=== PATIENT | female | born 1945 | race Caucasian/White ===

== ENCOUNTER → 2017-03-20 | Outpatient (CLI) | payer MEDICARE, OTHER | END | disposition home or self-care (01) | LOC: LABWHC1 14:55 | PROVIDERS: ATTEND Internal Medicine Cardiovascular Disease | DX: R06.02 Shortness of breath (principal) | CPT/HCPCS: 36415; 83880; 85379 ==

== ENCOUNTER → 2017-05-01 | Outpatient (CLI) | payer MEDICARE, OTHER ==
[2017-05-01 14:01] LABS: Rheumatoid Factor, Qnt <9 IU/mL (<12)
[2017-05-01 19:21] LABS: ANA w/Reflex to Titer NEGATIVE (NEGATIVE); Cyclic Citrull Pep IgG Unit <0.5 U/mL; Cyclic Citrullinated Pep IgG NEGATIVE (NEGATIVE); Scleroderma SC-70 Ab Interp NEGATIVE (NEGATIVE)
== END | disposition home or self-care (01) ==
LOC: LABWHC1 12:55
PROVIDERS: ATTEND Internal Medicine Pulmonary Disease
DX: E03.9 Hypothyroidism, unspecified (principal); I27.2 Other secondary pulmonary hypertension
CPT/HCPCS: 36415; 84443; 86038; 86200; 86225; 86235; 86431

== ENCOUNTER 2017-05-21 21:10 | Emergency (ER) | payer MEDICARE, OTHER ==
[2017-05-21] MEDS ORDERED: MORPHINE SULFATE 2 MG/ML SYRINGE IVP STA (21:25)
[2017-05-21] MEDS ORDERED: ASPIRIN 81 MG PO STA (21:25)
[2017-05-21] MEDS ORDERED: NITROGLYCERIN OINT 1 INCH/GM PACKET TOPICAL STA (21:25)
--- NOTE | 2017-05-21 21:46 | ED ---
General Adult HPI - General Chief complaint: Chest Pain Stated complaint: Chest/Back Pain Time Seen by Provider: 05/21/17 21:10 Source: patient, RN notes reviewed Mode of arrival: wheelchair Limitations: no limitations - History of Present Illness Initial comments: 72-year-old female who presents emergency Department complaining of pain between her shoulder blades. Patient states started 3 days ago. Patient states pain is never gone away. But it does get worse with deep breathing and with movement. Patient denies any anterior chest pain. Patient denies any shortness of breath is worse than normal. Patient denies any recent fever chills or cough. Patient denies any palpitations. Patient denies any abdominal pain patient denies nausea vomiting diarrhea. Patient denies headache patient denies numbness weakness. - Related Data Home Medications Medication Instructions Recorded Confirmed Albuterol Nebulized [Ventolin 2.5 mg INHALATION RT-QID PRN 05/21/17 05/21/17 Nebulized] Allopurinol [Zyloprim] 150 mg PO DAILY 05/21/17 05/21/17 Aspirin EC [Ecotrin Low Dose] 81 mg PO BID 05/21/17 05/21/17 Bisacodyl [Dulcolax] 5 mg PO DAILY 05/21/17 05/21/17 Calcitriol [Rocaltrol] 0.25 mcg PO BARRON 05/21/17 05/21/17 Calcium/Magnesium/Zinc 1 tab PO DAILY 05/21/17 05/21/17 [Atbzfhe-Pwaibcqzi-Cffu Tablet] Cholecalciferol [Vitamin D3] 1,000 unit PO BID 05/21/17 05/21/17 Furosemide [Lasix] 40 mg PO BID 05/21/17 05/21/17 Glucosam/Cheng-Msm1/C/Flaquito/Bosw 1 tab PO DAILY 05/21/17 05/21/17 [Glucosamine-Chondroitin Tablet] Insulin Aspart [NovoLOG] 9 unit SQ AC-TID 05/21/17 05/21/17 Insulin Glargine [Lantus] 50 unit SQ HS 05/21/17 05/21/17 Levothyroxine Sodium [Synthroid] 25 mcg PO QAM 05/21/17 05/21/17 Lisinopril [Zestril] 10 mg PO HS 05/21/17 05/21/17 Multivitamins, Thera [Multivitamin 1 tab PO DAILY 05/21/17 05/21/17 (formulary)] [place]-3 Fatty Acids/Fish Oil [Fish 1 cap PO BID 05/21/17 05/21/17 Oil 1,000 mg Softgel] Simvastatin [Zocor] 40 mg PO HS 05/21/17 05/21/17 Previous Rx's Medication Instructions Recorded Cyclobenzaprine [Flexeril] 10 mg PO TID #20 tab 05/21/17 Ibuprofen [Motrin] 400 mg PO Q6HR PRN #16 tab 05/21/17 Allergies Allergy/AdvReac Type Severity Reaction Status Date / Time No Known Allergies Allergy Verified 05/21/17 21:43 Review of Systems ROS Statement: Those systems with pertinent positive or pertinent negative responses have been documented in the HPI. ROS Other: All systems not noted in ROS Statement are negative. Past Medical History Past Medical History: Heart Failure, Diabetes Mellitus, Hyperlipidemia, Hypertension, Respiratory Disorder History of Any Multi-Drug Resistant Organisms: None Reported Past Surgical History: Section Past Psychological History: No Psychological Hx Reported Smoking Status: Former smoker Past Alcohol Use History: None Reported Past Drug Use History: None Reported General Exam - General Exam Comments Initial Comments: GENERAL: Patient is well-developed and well-nourished. Patient is nontoxic and well- hydrated and is in mild distress. ENT: Neck is soft and supple. No significant lymphadenopathy is noted. Oropharynx is clear. Moist mucous membranes. Neck has full range of motion without eliciting any pain. EYES: The sclera were anicteric and conjunctiva were pink and moist. Extraocular movements were intact and pupils were equal round and reactive to light. Eyelids were unremarkable. PULMONARY: Unlabored respirations. Good breath sounds bilaterally. No audible rales rhonchi or wheezing was noted. CARDIOVASCULAR: There is a regular rate and rhythm without any murmurs gallops or rubs. ABDOMEN: Soft and nontender with normal bowel sounds. No palpable organomegaly was noted. There is no palpable pulsatile mass. SKIN: Skin is clear with no lesions or rashes and otherwise unremarkable. NEUROLOGIC: Patient is alert and oriented x3. Cranial nerves II through XII are grossly intact. Motor and sensory are also intact. Normal speech, volume and content. Symmetrical smile. MUSCULOSKELETAL: Normal extremities with adequate strength and full range of motion. Patient had tenderness to the back on palpation. LYMPHATICS: No significant lymphadenopathy is noted PSYCHIATRIC: Normal psychiatric evaluation. Normal interpersonal interactions appears functionally intact in deals appropriately with others. No signs of depression. No signs of anxiety. Limitations: no limitations Course Vital Signs 05/21/17 05/21/17 05/21/17 21:14 21:47 22:37 Temperature 98.6 F 98.4 F Pulse Rate 87 74 64 Respiratory 18 20 16 Rate Blood Pressure 148/69 157/77 159/78 O2 Sat by Pulse 90 L 98 94 L Oximetry 05/21/17 23:35 Temperature 97.7 F Pulse Rate 70 Respiratory 18 Rate Blood Pressure 162/76 O2 Sat by Pulse 95 Oximetry Medical Decision Making - Medical Decision Making EKG shows normal sinus rhythm at 82 bpm VA interval 224 QRS is 90 QT interval 376 QTC is 439. Patient's EKG shows no ST segment elevation or depression or T wave abnormalities are noted. Chest x-ray shows no acute abnormality. Patient got great relief with the Toradol and states it's only there now she takes an extremely large breath or twists fully - Lab Data Result diagrams: 05/21/17 21:35 05/21/17 21:35 Lab Results 05/21/17 05/21/17 05/21/17 Range/Units 21:35 21:35 21:35 WBC 11.9 H (3.8-10.6) k/uL RBC 4.43 (3.80-5.40) m/uL Hgb 13.3 (11.4-16.0) gm/dL Hct 40.9 (34.0-46.0) % MCV 92.3 (80.0-100.0) fL MCH 30.0 (25.0-35.0) pg MCHC 32.5 (31.0-37.0) g/dL RDW 14.1 (11.5-15.5) % Plt Count 271 (150-450) k/uL Neutrophils % 71 % Lymphocytes % 19 % Monocytes % 5 % Eosinophils % 3 % Basophils % 1 % Neutrophils # 8.4 H (1.3-7.7) k/uL Lymphocytes # 2.3 (1.0-4.8) k/uL Monocytes # 0.6 (0-1.0) k/uL Eosinophils # 0.3 (0-0.7) k/uL Basophils # 0.1 (0-0.2) k/uL PT (9.0-12.0) sec INR (<1.2) APTT (22.0-30.0) sec D-Dimer (<0.60) mg/L FEU Sodium 140 (137-145) mmol/L Potassium 4.8 (3.5-5.1) mmol/L Chloride 100 (98-107) mmol/L Carbon Dioxide 29 (22-30) mmol/L Anion Gap 11 mmol/L BUN 51 H (7-17) mg/dL Creatinine 1.74 H (0.52-1.04) mg/dL Est GFR (MDRD) Af Amer 35 (>60 ml/min/1.73 sqM) Est GFR (MDRD) Non-Af 29 (>60 ml/min/1.73 sqM) Glucose 193 H (74-99) mg/dL Calcium 9.7 (8.4-10.2) mg/dL Magnesium 2.2 (1.6-2.3) mg/dL Total Bilirubin 0.4 (0.2-1.3) mg/dL AST 21 (14-36) U/L ALT 25 (9-52) U/L Alkaline Phosphatase 85 (38-126) U/L Total Creatine Kinase 91 (30-135) U/L CK-MB (CK-2) 0.8 (0.0-2.4) ng/mL CK-MB (CK-2) Rel Index 0.9 Troponin I <0.012 (0.000-0.034) ng/mL NT-Pro-B Natriuret Pep pg/mL Total Protein 7.3 (6.3-8.2) g/dL Albumin 4.2 (3.5-5.0) g/dL 05/21/17 05/21/17 05/21/17 Range/Units 21:35 21:35 21:35 WBC (3.8-10.6) k/uL RBC (3.80-5.40) m/uL Hgb (11.4-16.0) gm/dL Hct (34.0-46.0) % MCV (80.0-100.0) fL MCH (25.0-35.0) pg MCHC (31.0-37.0) g/dL RDW (11.5-15.5) % Plt Count (150-450) k/uL Neutrophils % % Lymphocytes % % Monocytes % % Eosinophils % % Basophils % % Neutrophils # (1.3-7.7) k/uL Lymphocytes # (1.0-4.8) k/uL Monocytes # (0-1.0) k/uL Eosinophils # (0-0.7) k/uL Basophils # (0-0.2) k/uL PT 9.9 (9.0-12.0) sec INR 1.0 (<1.2) APTT 23.2 (22.0-30.0) sec D-Dimer 0.54 (<0.60) mg/L FEU Sodium (137-145) mmol/L Potassium (3.5-5.1) mmol/L Chloride (98-107) mmol/L Carbon Dioxide (22-30) mmol/L Anion Gap mmol/L BUN (7-17) mg/dL Creatinine (0.52-1.04) mg/dL Est GFR (MDRD) Af Amer (>60 ml/min/1.73 sqM) Est GFR (MDRD) Non-Af (>60 ml/min/1.73 sqM) Glucose (74-99) mg/dL Calcium (8.4-10.2) mg/dL Magnesium (1.6-2.3) mg/dL Total Bilirubin (0.2-1.3) mg/dL AST (14-36) U/L ALT (9-52) U/L Alkaline Phosphatase (38-126) U/L Total Creatine Kinase (30-135) U/L CK-MB (CK-2) (0.0-2.4) ng/mL CK-MB (CK-2) Rel Index Troponin I (0.000-0.034) ng/mL NT-Pro-B Natriuret Pep 130 pg/mL Total Protein (6.3-8.2) g/dL Albumin (3.5-5.0) g/dL Disposition Clinical Impression: Thoracic back pain Disposition: HOME SELF-CARE Condition: Good Instructions: Thoracic Back Strain (ED) Prescriptions: Cyclobenzaprine [Flexeril] 10 mg PO TID #20 tab Ibuprofen [Motrin] 400 mg PO Q6HR PRN #16 tab PRN Reason: Pain Referrals: Oroin Benjamin MD [Primary Care Provider] - 1-2 days Time of Disposition: 23:43
[2017-05-21 21:51] LABS: Basophils # (A) 0.1 k/uL (0-0.2); Basophils % (A) 1 %; CH 29.8; CHCM 32.4; Eosinophils # (A) 0.3 k/uL (0-0.7); Eosinophils % (A) 3 %; HCT 40.9 % (34.0-46.0); HDW 2.51; HGB 13.3 gm/dL (11.4-16.0); Luc # (Auto) 0.17; Luc % (Auto) 2; Lymphocytes # (A) 2.3 k/uL (1.0-4.8); Lymphocytes % (A) 19 %; MCHC 32.5 g/dL (31.0-37.0); MCV 92.3 fL (80.0-100.0); Mean Platelet Volume 7.7; Monocytes # (A) 0.6 k/uL (0-1.0); Monocytes % (A) 5 %; Neutrophils # (A) 8.4 k/uL (1.3-7.7); Neutrophils % (A) 71 %; RBC 4.43 m/uL (3.80-5.40); RDW 14.1 % (11.5-15.5); WBC 11.9 k/uL (3.8-10.6); WBC (Perox) 11.43
[2017-05-21 21:57] LABS: Partial Thromboplastin Time 23.2 sec (22.0-30.0); Prothrombin Time 9.9 sec (9.0-12.0)
[2017-05-21 21:59] LABS: Calcium 9.7 mg/dL (8.4-10.2); Magnesium 2.2 mg/dL (1.6-2.3); Potassium 4.8 mmol/L (3.5-5.1); Total Bilirubin 0.4 mg/dL (0.2-1.3); Total Protein 7.3 g/dL (6.3-8.2)
--- NOTE | 2017-05-21 22:14 | XR ---
EXAMINATION TYPE: XR chest 2V DATE OF EXAM: 05/21/2017 COMPARISON: EXAMINATION TYPE: XR chest 2V DATE OF EXAM: 05/21/2017 COMPARISON: NONE HISTORY: Chest pain TECHNIQUE: 2 views FINDINGS: Heart is enlarged. There is no gross heart failure. Exam is limited by the obesity. I see n o definite pleural effusion. There are chest leads. Bony thorax is intact. IMPRESSION: Cardiomegaly. No gross heart failure seen.
[2017-05-21 22:15] LABS: Creatine Kinase 91 U/L (30-135)
[2017-05-21 22:28] LABS: Creatine Kinase MB 0.8 ng/mL (0.0-2.4); Troponin I <0.012 ng/mL (0.000-0.034)
[2017-05-21] MEDS ORDERED: KETOROLAC 60 MG/2 ML VIAL IVP STA (22:57)
[2017-05-21 23:37] VITALS: BP 162/76; PULSE 70; RESP 18; TEMP 97.7
[2017-05-21] MEDS ORDERED: CYCLOBENZAPRINE 10 MG TAB PO STA (23:46)
== END 2017-05-22 00:08 | disposition home or self-care (01) ==
LOC: EC 21:10
DX: M54.6 Pain in thoracic spine (principal); R07.9 Chest pain, unspecified; I11.0 Hypertensive heart disease with heart failure; I50.9 Heart failure, unspecified; E11.9 Type 2 diabetes mellitus without complications; E78.5 Hyperlipidemia, unspecified; Z87.891 Personal history of nicotine dependence; Z79.82 Long term (current) use of aspirin; Z79.4 Long term (current) use of insulin; Z79.899 Other long term (current) drug therapy
CPT/HCPCS: 36415; 93005; 85379; 83880; 80053; 82550; 82553; 83735; 84484; 85025; 85610; 85730; 71020; 99285; 96374; 96375; J1885; J2270

== ENCOUNTER → 2021-02-09 | Outpatient (CLI) | payer MEDICARE, OTHER ==
[2021-02-09 14:35] LABS: HCT 43.2 % (37.2-46.3); HGB 13.4 g/dL (12.0-15.0); MCV 96.6 fL (80.0-97.0); Mean Platelet Volume 11.4 fL (9.5-12.2); Platelet Count 270 X 10*3/uL (140-440); RBC 4.47 X 10*6/uL (4.10-5.20); RDW 13.2 % (11.5-14.5); WBC 8.93 X 10*3/uL (4.50-10.00)
[2021-02-10 07:36] LABS: African American GFR (CKD) 35.7 (60.0-200.0); Anion Gap 16.3 mmol/L (4.00-12.00); BUN/Creat Ratio 25.63 Ratio (12.00-20.00); Calcium 9.7 mg/dL (8.7-10.3); Carbon Dioxide 24.7 mmol/L (21.6-31.8); Non-African American GFR(CKD) 30.8 (60.0-200.0); Potassium 4.2 mmol/L (3.5-5.5)
== END | disposition home or self-care (01) ==
LOC: LABWHC1 10:13
PROVIDERS: ATTEND Internal Medicine Cardiovascular Disease
DX: I48.91 Unspecified atrial fibrillation (principal)
CPT/HCPCS: 36415; 80048; 84443; 85027

== ENCOUNTER 2021-09-27 10:02 | Inpatient (IN) | payer MEDICARE, OTHER ==
[2021-09-27] MEDS ORDERED: PIPERACILLIN-TAZOBACTAM 3.375 GM in SODIUM CHLORIDE 0.9% 100 ML IVPB STA (10:23)
[2021-09-27] MEDS ORDERED: VANCOMYCIN IV PER PHARMACY 1 EACH MISC MISCELLANE PRN (10:24)
[2021-09-27] MEDS ORDERED: ACETAMINOPHEN TAB 325 MG TAB PO PRN (10:27)
[2021-09-27] MEDS ORDERED: VANCOMYCIN 1,750 MG in SODIUM CHLORIDE 0.9% 500 ML 500 ML IVPB STA (10:27)
[2021-09-27] MEDS ORDERED: ONDANSETRON 4 MG/2 ML VIAL IVP PRN (10:27)
[2021-09-27] MEDS ORDERED: MORPHINE SULFATE 4 MG/ML SYRINGE IV PRN (10:27)
[2021-09-27] MEDS ORDERED: NALOXONE 0.4 MG/ML 1 ML VIAL IV PRN (10:27)
--- NOTE | 2021-09-27 10:27 | ED ---
General Adult HPI - General Chief complaint: Extremity Injury, Lower Stated complaint: L foot infection Time Seen by Provider: 09/27/21 10:05 Source: patient, RN notes reviewed Mode of arrival: ambulatory Limitations: no limitations - History of Present Illness Initial comments: 76-year-old female presents emergency Department with chief complaint of left foot infection. Patient states that she's been having pain last 2 weeks was seen at [facility] by Dr. Rick last week and again today and sent in for admission secondary to infection. Patient's had x-rays twice with no acute fracture or acute abnormality noted. Patient states she is a diabetic has ongoing renal disease reports increasing pain, burning sensation no lesions or sores or foot. - Related Data Home Medications Medication Instructions Recorded Confirmed Albuterol Nebulized [Ventolin 2.5 mg INHALATION RT-QID PRN 05/21/17 05/21/17 Nebulized] Aspirin EC [Ecotrin Low Dose] 81 mg PO BID 05/21/17 05/21/17 Calcium/Magnesium/Zinc 1 tab PO DAILY 05/21/17 05/21/17 [Lpbmxaq-Yuinoinwu-Yqpl Tablet] Cholecalciferol [Vitamin D3] 1,000 unit PO BID 05/21/17 05/21/17 Furosemide [Lasix] 40 mg PO BID 05/21/17 05/21/17 Glucosam/Cheng-Msm1/C/Flaquito/Bosw 1 tab PO DAILY 05/21/17 05/21/17 [Glucosamine-Chondroitin Tablet] INSULIN ASPART (NovoLOG) [NovoLOG] 9 unit SQ AC-TID 05/21/17 05/21/17 Insulin Glargine [Lantus] 50 unit SQ HS 05/21/17 05/21/17 Levothyroxine Sodium [Synthroid] 25 mcg PO QAM 05/21/17 05/21/17 Multivitamins, Thera [Multivitamin 1 tab PO DAILY 05/21/17 05/21/17 (formulary)] [place]-3 Fatty Acids/Fish Oil [Fish 1 cap PO BID 05/21/17 05/21/17 Oil 1,000 mg Softgel] Simvastatin [Zocor] 40 mg PO HS 05/21/17 05/21/17 allopurinoL [Zyloprim] 150 mg PO DAILY 05/21/17 05/21/17 bisacodyL [Dulcolax] 5 mg PO DAILY 05/21/17 05/21/17 calcitrioL [Rocaltrol] 0.25 mcg PO BARRON 05/21/17 05/21/17 lisinopriL [Zestril] 10 mg PO HS 05/21/17 05/21/17 Previous Rx's Medication Instructions Recorded Cyclobenzaprine [Flexeril] 10 mg PO TID #20 tab 05/21/17 Ibuprofen [Motrin] 400 mg PO Q6HR PRN #16 tab 05/21/17 Allergies Allergy/AdvReac Type Severity Reaction Status Date / Time No Known Allergies Allergy Verified 09/27/21 10:03 Review of Systems ROS Statement: Those systems with pertinent positive or pertinent negative responses have been documented in the HPI. ROS Other: All systems not noted in ROS Statement are negative. Past Medical History Past Medical History: Heart Failure, Diabetes Mellitus, Hyperlipidemia, Hypertension, Respiratory Disorder History of Any Multi-Drug Resistant Organisms: None Reported Past Surgical History: Section Past Psychological History: No Psychological Hx Reported Smoking Status: Former smoker Past Alcohol Use History: None Reported Past Drug Use History: None Reported General Exam Limitations: no limitations General appearance: alert, in no apparent distress Head exam: Present: atraumatic, normocephalic, normal inspection Respiratory exam: Present: normal lung sounds bilaterally. Absent: respiratory distress, wheezes, rales, rhonchi, stridor Cardiovascular Exam: Present: regular rate, normal rhythm, normal heart sounds. Absent: systolic murmur, diastolic murmur, rubs, gallop, clicks Extremities exam: Present: other (Left foot dorsal aspect there is erythema, swelling, severe tenderness with palpation, neurovascular intact there is some ecchymotic areas of the digits) Course Vital Signs 09/27/21 10:04 Temperature 97.7 F Pulse Rate 80 Respiratory 18 Rate Blood Pressure 158/64 O2 Sat by Pulse 96 Oximetry Medical Decision Making - Medical Decision Making 76-year-old female presented for left foot infection. I did discuss case with Elizabeth Bustos from [facility] who recommends patient be admitted to medicine consult infectious disease and consult to orthopedics their concern is underlying abscess. Patient was started on broad-spectrum antibiotics. Disposition Clinical Impression: Cellulitis of left foot, Foot abscess, left Disposition: ADMITTED IP TO THIS HOSP Condition: Fair Referrals: Orion Benjamin MD [Primary Care Provider] - 1-2 days
[2021-09-27 11:36] LABS: Basophils % (A) 1 %; Eosinophils # (A) 0.2 k/uL (0-0.7); Eosinophils % (A) 3 %; HCT 46.3 % (34.0-46.0); HGB 15.1 gm/dL (11.4-16.0); Lymphocytes # (A) 1.3 k/uL (1.0-4.8); Lymphocytes % (A) 16 %; MCH 30.9 pg (25.0-35.0); MCHC 32.6 g/dL (31.0-37.0); MCV 94.8 fL (80.0-100.0); Mean Platelet Volume 9.1; Monocytes # (A) 0.4 k/uL (0-1.0); Monocytes % (A) 5 %; Neutrophils # (A) 6.1 k/uL (1.3-7.7); Neutrophils % (A) 74 %; Platelet Count 244 k/uL (150-450); RBC 4.89 m/uL (3.80-5.40); WBC 8.3 k/uL (3.8-10.6)
[2021-09-27] MEDS ORDERED: IPRATROPIUM 0.5 MG/2.5 ML NEBU INHALATION PRN (11:50)
[2021-09-27 11:52] LABS: Potassium 5.1 mmol/L (3.5-5.1)
[2021-09-27 11:55] LABS: Albumin 4.2 g/dL (3.5-5.0); C Reactive Protein 1.1 mg/dL (<1.0); Calcium 10.2 mg/dL (8.4-10.2); Total Bilirubin 0.7 mg/dL (0.2-1.3); Total Protein 7.4 g/dL (6.3-8.2)
[2021-09-27 12:19] LABS: Glucose,Whole Blood 196 mg/dL (75-99)
[2021-09-27] MEDS: INSULIN ASPART (NovoLOG) 100 UNIT/ML VIAL SQ SCH ×3 (12:23→21:51)
[2021-09-27] MEDS: amLODIPine 10 MG TAB PO SCH (12:23)
[2021-09-27] MEDS: APIXABAN 5 MG TAB PO SCH ×2 (12:23→21:50)
--- NOTE | 2021-09-27 13:00 | ECHOF ---
Referral Reason:LVF MEASUREMENTS -------- HEIGHT: 157.5 cm WEIGHT: 120.2 kg BP: IVSd: 1.6 cm (0.6 - 1.1) LVIDd: 2.6 cm (3.9 - 5.3) LVPWd: 1.5 cm (0.6 - 1.1) IVSs: 1.9 cm LVIDs: 1.7 cm LVPWs: 2.4 cm Ao Diam: 3.3 cm (2.0 - 3.7) AV Cusp: 1.9 cm (1.5 - 2.6) LA Diam: 4.2 cm (2.7 - 3.8) RAP: 5.00 mmHg RVSP: 10.65 mmHg FINDINGS -------- This was a technically difficult study with suboptimal views. The left ventricular size is normal. There is moderate concentric left ventricular hypertrophy. O verall left ventricular systolic function is normal with, an EF between 55 - 60 %. The RV was not well visualized. The left atrium was not well visualized. The right atrium was not well visualized. The aortic valve is trileaflet and appears structurally normal. The mitral valve was not well visualized. The tricuspid valve was not well visualized. The pulmonic valve was not well visualized. IVC Not well visulized. There is no pericardial effusion. CONCLUSIONS -------- 1. The left ventricular size is normal. 2. There is moderate concentric left ventricular hypertrophy. 3. Overall left ventricular systolic function is normal with, an EF between 55 - 60 %. 4. There is no pericardial effusion. SECURITY ANALYST: Anabelle Gross RDCS
--- NOTE | 2021-09-27 13:56 | P.CNOR ---
History of Present Illness - [facility] Consult date: 09/27/21 History of present illness: This patient is a 76-year-old female with a past medical history of CHF, diabetes, chronic kidney disease, hypertension, hyperlipidemia that initially presented to our office last week for evaluation by Dr. Rick for left foot pain. 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 Patient followed up today in the office and clinical exam was consistent with cellulitis and possible abscess. It was recommended by Dr. Rick that patient be sent to the emergency department for evaluation by internal medicine and infectious disease, due to her multiple medical problems. Patient's daughter also voiced concern regarding the patient's safety at home, as she lives alone. The patient's daughter is afraid the patient will fall if she were to return home today. Orthopedic surgery is consulted on admission for further evaluation of her left foot. Besides her left foot pain, patient states she is feeling well. She denies fevers, chills. Past Medical History Past Medical History: Heart Failure, Diabetes Mellitus, Hyperlipidemia, Hypertension, Respiratory Disorder History of Any Multi-Drug Resistant Organisms: None Reported Past Surgical History: Section Past Psychological History: No Psychological Hx Reported Smoking Status: Former smoker Past Alcohol Use History: None Reported Past Drug Use History: None Reported Medications and Allergies Home Medications Medication Instructions Recorded Confirmed Type Albuterol Nebulized [Ventolin 2.5 mg INHALATION RT-QID PRN 05/21/17 09/27/21 History Nebulized] Aspirin EC [Ecotrin Low Dose] 81 mg PO MOWEFR 05/21/17 09/27/21 History Furosemide [Lasix] 40 mg PO BID 05/21/17 09/27/21 History INSULIN ASPART (NovoLOG) [NovoLOG] 9 unit SQ ACHS 05/21/17 09/27/21 History Insulin Glargine [Lantus] 50 unit SQ HS 05/21/17 09/27/21 History Levothyroxine Sodium [Synthroid] 25 mcg PO DAILY 05/21/17 09/27/21 History [place]-3 Fatty Acids/Fish Oil [Fish 1 cap PO BID 05/21/17 09/27/21 History Oil 1,000 mg Softgel] Simvastatin [Zocor] 40 mg PO HS 05/21/17 09/27/21 History allopurinoL [Zyloprim] 150 mg PO DAILY 05/21/17 09/27/21 History calcitrioL [Rocaltrol] 0.25 mcg PO MOWEFR 05/21/17 09/27/21 History Apixaban [Eliquis] 5 mg PO BID 09/27/21 09/27/21 History Ascorbic Acid [Vitamin C] 500 mg PO DAILY 09/27/21 09/27/21 History Budesonide [Pulmicort] 0.5 mg INHALATION RT-BID 09/27/21 09/27/21 History Calc/Magne/Zinc/D 1 tab PO HS 09/27/21 09/27/21 History Fluticasone Nasal [place] [Flonase 2 spray EA NOSTRIL DAILY 09/27/21 09/27/21 History Nasal [place]] Garlic 1 tab PO DAILY 09/27/21 09/27/21 History Ipratropium Nebulized [Atrovent 0.5 mg INHALATION RT-QID PRN 09/27/21 09/27/21 History Nebulized 0.2 MG/ML] Latanoprost [Xalatan 0.005%] 1 drop BOTH EYES HS 09/27/21 09/27/21 History Montelukast [Singulair] 10 mg PO DAILY 09/27/21 09/27/21 History Spironolactone 50 mg PO DAILY 09/27/21 09/27/21 History Turmeric Root Extract [Turmeric] 500 mg PO DAILY 09/27/21 09/27/21 History amLODIPine [Norvasc] 10 mg PO DAILY 09/27/21 09/27/21 History Allergies Allergy/AdvReac Type Severity Reaction Status Date / Time No Known Allergies Allergy Verified 09/27/21 10:03 Physical Examination On examination, the patient is in no apparent distress. She is alert and oriented 3. On inspection of the left foot, there is diffuse swelling and erythema of the dorsal forefoot. Resolving ecchymosis of the toes. There is cellulitis of the dorsal forefoot with a small area of fluctuance. The foot is warm and well-perfused. Motor and sensory function intact left lower extremity. Results [facility] x[facility] 09/27/21: No acute fractures. Midfoot arthritic changes. Vascular calcifications. - Labs Labs: Abnormal Lab Results - Last 24 Hours (Table) 09/27/21 09/27/21 09/27/21 Range/Units 10:59 10:59 12:17 Hct 46.3 H (34.0-46.0) % Sodium 136 L (137-145) mmol/L BUN 52 H (7-17) mg/dL Creatinine 1.65 H (0.52-1.04) mg/dL Glucose 187 H (74-99) mg/dL POC Glucose (mg/dL) 196 H (75-99) mg/dL C-Reactive Protein 1.1 H (<1.0) mg/dL H & H 09/27/21 Range/Units 10:59 Hgb 15.1 (11.4-16.0) gm/dL Hct 46.3 H (34.0-46.0) % Result Diagrams: 09/27/21 10:59 09/27/21 10:59 Assessment and Plan Assessment: Left foot cellulitis with possible abscess Plan: - Patient was also evaluated by Dr. Rick today. No surgical intervention is planned for today. Patient has been started on IV antibiotics. We will plan to re-assess patient in the morning after she receives 24 hours of IV antibiotics. - Infectious disease has been consulted for antibiotic recommendations. - Internal medicine for medical management. - We will follow patient closely.
--- NOTE | 2021-09-27 14:19 | P.CONS ---
History of Present Illness - Reason for Consult Consult date: 09/27/21 Swelling pain involving the dorsal aspect of foot - History of Present Illness 76 years old female with past medical history of congestive heart failure, type 2 diabetes, hyperlipidemia, hypertension, atrial fibrillation, type 2 diabetes, hypothyroidism, hyperlipidemia diagnosed 1 year ago comes in with worsening swelling involving the left lower extremity for the past 2 weeks. Patient denies any fall or recent trauma to the left foot. She's noticed a swelling including purplish discoloration of all her toes 2 weeks back, the toes color have improved. Patient was seen by Dr. Rick last week. X-rays of the foot was done twice but no acute fracture or acute abnormality noted. Patient is afebrile pulse 80 respiratory rate 18 blood pressure 158/64 oxygen saturation 96% room air. Labs are reviewed, WBC 8.3 hemoglobin 15.1 sodium 136 BUN 52 creatinine 1.67 glucose 187 CRP 1.1 liver enzymes are normal. COVID negative. Patient initiated on Vanco and Zosyn for possible abscess. Orthopedics plans to do I and D for the patient. ROS Constitutional: Denies chills, Denies fever, Denies lethargy, Denies malaise, Denies poor appetite, Denies weakness, Denies weight loss Eyes: denies decreased vision, denies diplopia, denies discharge, denies pain Ears: deny: decreased hearing Ears, nose, mouth and throat: Denies dental pain, Denies headache, Denies nasal discharge, Denies nose pain Cardiovascular: Denies chest pain, Denies decreased exercise tolerance, Denies edema, Denies high blood pressure, Denies irregular heart beat, Denies palpitations, Denies paroxysmal nocturnal dyspnea, Denies rapid heart beat, Denies shortness of breath Respiratory: Denies congestion, Denies cough, Denies cough with sputum, Denies dyspnea, Denies home oxygen, Denies wheezing Gastrointestinal: Denies abdominal pain, Denies change in bowel habits, Denies coffee ground emesis, Denies early satiety, Denies excessive gas, Denies heartburn, Denies hematemesis, Denies hematochezia, Denies loss of appetite, Denies nausea, Denies vomiting Genitourinary: Denies dysuria, Denies flank pain, Denies kidney stones, Denies menorrhagia, Denies urgency, Denies urinary frequency Musculoskeletal: endorses gait dysfunction, endorses limitation of motion, endorses pain and swelling lower ext, Denies morning stiffness, Denies muscle cramps Integumentary: Denies rash, Denies wounds, Denies brittle nails, Denies change in hair/nails, Denies darkening of skin Neurological: Denies balance difficulties, Denies change in speech, Denies double vision, Denies gait dysfunction, Denies loss of vision, Denies motor disturbance, Denies numbness, Denies paralysis, Denies paresthesias, Denies seizures Psychiatric: Denies anxiety, Denies depression Endocrine: Denies excessive sweating, Denies excessive thirst, Denies high blood sugars, Denies palpitations Hematologic/Lymphatic: Denies easy bruising, Denies lymphadenopathy Social history Nonsmoker Nondrinker No illicit drug use Family history Mom of CVA at 59 Dad of coronary artery disease in his 70s Brother of myocardial infarction in the early 70s One brother of pancreatic cancer One son of colon cancer with metastases to the liver at the age of 47 One daughter has ovarian cancer and breast cancer Other daughter has skin cancer Physical exam - Constitutional General appearance: cooperative, no acute distress, obese - EENT Eyes: anicteric sclerae, PERRLA, normal appearance ENT: hearing grossly normal - Neck Neck: no lymphadenopathy, normal ROM, no other, no rigidity, no stridor, no thyromegaly - Respiratory Respiratory: bilateral: CTA, negative: diminished, dullness, rales, rhonchi - Cardiovascular Rhythm: regular Heart sounds: normal: S1, S2 Abnormal Heart Sounds: no systolic murmur, no diastolic murmur, no rub, no S3 Gallop, no S4 Gallop, no click, no other - Gastrointestinal General gastrointestinal: normal bowel sounds, soft - Integumentary Integumentary: swelling involving the dorsal surface of the foot, with significant tenderness on light touch, peripheral pulses are 2 + , purplish discoloration of the toes, perfusion > 2 sec - Neurologic Neurologic: no sensory or motor deficit - Musculoskeletal Musculoskeletal: , strength equal bilaterally - Psychiatric Psychiatric: A&O x's 3, appropriate affect Assessment and plan Left foot abscess with purplish discoloration of the toes - Unclear etiology - Rule out arterial insufficiency, arterial ultrasound ordered, peripheral pulses intact - Initiated on vancomycin and Zosyn - Orthopedic consultation - Infectious disease consultation - Would recommend MRI of the foot to rule out underlying etiology - XRay of the foot was negative for acute fracture per documentation no imaging in the chart present - Being controlled with morphine 4 mg IV every 4 hours Hypertension -Amlodipine 10 mg by mouth daily History of congestive heart failure - Hold spironolactone - Lasix reduced to 40 mg by mouth daily from twice daily History of atrial fibrillation currently in sinus rhythm -Patient not on rate control medication - Continue Eliquis 5 mg twice a day Type 2 diabetes - Continue glargine 50 units at bedtime -Insulin aspart 9 units subcu before meals at bedtime Chronic kidney disease Stage III - We will reduce Lasix to 40 mg daily - Calcitriol 0.25 g Friday and Friday Hypothyroidism - Continue levothyroxine 25 g by mouth daily CODE STATUS full code DVT prophylaxis on Eliquis 5 twice a day Past Medical History Past Medical History: Heart Failure, Diabetes Mellitus, Hyperlipidemia, Hypertension, Respiratory Disorder History of Any Multi-Drug Resistant Organisms: None Reported Past Surgical History: Section Past Psychological History: No Psychological Hx Reported Smoking Status: Former smoker Past Alcohol Use History: None Reported Past Drug Use History: None Reported Medications and Allergies Home Medications Medication Instructions Recorded Confirmed Type Albuterol Nebulized [Ventolin 2.5 mg INHALATION RT-QID PRN 05/21/17 09/27/21 History Nebulized] Aspirin EC [Ecotrin Low Dose] 81 mg PO MOWEFR 05/21/17 09/27/21 History Furosemide [Lasix] 40 mg PO BID 05/21/17 09/27/21 History INSULIN ASPART (NovoLOG) [NovoLOG] 9 unit SQ [facility] 05/21/17 09/27/21 History Insulin Glargine [Lantus] 50 unit SQ HS 05/21/17 09/27/21 History Levothyroxine Sodium [Synthroid] 25 mcg PO DAILY 05/21/17 09/27/21 History [place]-3 Fatty Acids/Fish Oil [Fish 1 cap PO BID 05/21/17 09/27/21 History Oil 1,000 mg Softgel] Simvastatin [Zocor] 40 mg PO HS 05/21/17 09/27/21 History allopurinoL [Zyloprim] 150 mg PO DAILY 05/21/17 09/27/21 History calcitrioL [Rocaltrol] 0.25 mcg PO MOWEFR 05/21/17 09/27/21 History Apixaban [Eliquis] 5 mg PO BID 09/27/21 09/27/21 History Ascorbic Acid [Vitamin C] 500 mg PO DAILY 09/27/21 09/27/21 History Budesonide [Pulmicort] 0.5 mg INHALATION RT-BID 09/27/21 09/27/21 History Calc/Magne/Zinc/D 1 tab PO HS 09/27/21 09/27/21 History Fluticasone Nasal [place] [Flonase 2 spray EA NOSTRIL DAILY 09/27/21 09/27/21 History Nasal [place]] Garlic 1 tab PO DAILY 09/27/21 09/27/21 History Ipratropium Nebulized [Atrovent 0.5 mg INHALATION RT-QID PRN 09/27/21 09/27/21 History Nebulized 0.2 MG/ML] Latanoprost [Xalatan 0.005%] 1 drop BOTH EYES HS 09/27/21 09/27/21 History Montelukast [Singulair] 10 mg PO DAILY 09/27/21 09/27/21 History Spironolactone 50 mg PO DAILY 09/27/21 09/27/21 History Turmeric Root Extract [Turmeric] 500 mg PO DAILY 09/27/21 09/27/21 History amLODIPine [Norvasc] 10 mg PO DAILY 09/27/21 09/27/21 History Allergies Allergy/AdvReac Type Severity Reaction Status Date / Time No Known Allergies Allergy Verified 09/27/21 10:03 Physical Exam Vitals: Vital Signs Temp Pulse Resp BP Pulse Ox 09/27/21 11:35 72 18 155/74 96 09/27/21 10:04 97.7 F 80 18 158/64 96 Intake and Output 09/26/21 09/27/21 09/27/21 22:59 06:59 14:59 Other: Weight 120.202 kg Results CBC & Chem 7: 09/27/21 10:59 09/27/21 10:59 Labs: Abnormal Lab Results - Last 24 Hours (Table) 09/27/21 09/27/21 09/27/21 Range/Units 10:59 10:59 12:17 Hct 46.3 H (34.0-46.0) % Sodium 136 L (137-145) mmol/L BUN 52 H (7-17) mg/dL Creatinine 1.65 H (0.52-1.04) mg/dL Glucose 187 H (74-99) mg/dL POC Glucose (mg/dL) 196 H (75-99) mg/dL C-Reactive Protein 1.1 H (<1.0) mg/dL
[2021-09-27] MEDS ORDERED: FUROSEMIDE 40 MG TAB PO SCH (16:00)
--- NOTE | 2021-09-27 16:09 | XR ---
EXAMINATION TYPE: XR abdomen 2V DATE OF EXAM: 09/27/2021 CLINICAL HISTORY: Abdominal pain and discomfort. Constipation. TECHNIQUE: Supine and upright views of the abdomen are obtained. COMPARISON: None. FINDINGS: Scattered gas is seen in non-distended small bowel loops. Gas and fecal material is seen in non-distended colon. Cholecystectomy clips are present. Pelvic vascular calcifications are seen. L misti bases are grossly clear. No pneumoperitoneum is seen. IMPRESSION: Overall nonobstructive bowel gas pattern.
[2021-09-27 17:34] LABS: Glucose,Whole Blood 116 mg/dL (75-99)
[2021-09-27 19:33] LABS: Glucose,Whole Blood 145 mg/dL (75-99)
[2021-09-27] MEDS: ALBUTEROL NEBULIZED 2.5 MG/3 ML INHALATION PRN (19:47)
[2021-09-27] MEDS: BUDESONIDE 0.5 MG/2 ML NEBU INHALATION SCH (19:47)
[2021-09-27] MEDS ORDERED: PIPERACILLIN-TAZOBACTAM 3.375 GM in SODIUM CHLORIDE 0.9% 100 ML IVPB SCH (20:00)
[2021-09-27] MEDS: ATORVASTATIN 20 MG TAB PO SCH (21:50)
[2021-09-27] MEDS: INSULIN DETEMIR (LEVEMIR) 100 UNIT/ML SYR SQ SCH (21:51)
[2021-09-27] MEDS: LATANOPROST 0.005% OPHTH DROPS 2.5 ML BTL BOTH EYES SCH (21:51)
--- NOTE | 2021-09-27 23:21 | P.CONS ---
History of Present Illness - Reason for Consult Consult date: 09/27/21 left foot cellulitis Requesting physician: Dimas Crane - Chief Complaint left foot pain x 2 weeks - History of Present Illness History of present illness : Patient is 76-year female presenting to the ER for evaluation of left foot infection apparently the patient was having some pain to the left foot area that started about 2 weeks ago patient denies any history of any trauma and apparently the patient was evaluated in outpatient setting last week by orthopedics patient did have x-rays of the foot done and there is no evidence of any fracture subsequently patient started having swelling redness on the dorsal aspect of the left foot and did have bruising of the left fourth toes patient complaining of pain to the left foot with more of a dull aching to throbbing intensity is 5-6 out of 10 no radiation. Denies any skin breakdown or any drainage and denies having any fever or Johny the patient was evaluated by ER physician on arrival to the ED patient was afebrile patient did have a normal white count patient was elevated 1.65 mg abnormal, PCR was negative patient did have x-rays done at the orthopedic associate and also pending. Has also not repeated here patient was started on vancomycin and Zosyn infectious disease was consulted for further management of antibiotic therapy Review of system: CONSTITUTIONAL: Positive for weakness denies high-grade fever. EYES: No complaint. ENT: No complaint. RESPIRATORY: No complaint. CARDIOVASCULAR: No complaint. GENITOURINARY: No complaint. GASTROINTESTINAL: No complaint. MUSCULOSKELETAL: As per history of present illness. INTEGUMENTARY: No complaint. PSYCHOLOGIC: No complaint. ENDOCRINE: No complaint. NEUROLOGIC: No complaint. Past medical history : Reviewed, documented below Past surgical history : Reviewed, documented below Social history: Reviewed, documented below Medications: Reviewed, as documented below EXAMINATION: Vital sigans= Reviewed and documented below GENERAL DESCRIPTION: Elderly female lying in bed, no distress. No tachypnea or accessory muscle of respiration use. HEENT: Shows Pallor , no scleral icterus. Oral mucous membrane is dry. NECK: Trachea central, no thyromegaly. LUNGS: Unlabored breathing. Clear to auscultation anteriorly. No wheeze or handicrafts teacher ckle. HEART: S1, S2, regular rate and rhythm. ABDOMEN: Soft, no tenderness , guarding or rigidity EXTREMITIES: No edema of feet. Left foot dorsum did have an area of erythema which is tender to touch no fluctuation no drainage SKIN: No rash, no masses palpable. NEUROLOGICAL: The patient is awake, alert, oriented x3, mood and affect normal. LABS AND RADIOLOGY: Reviewed results see below Assessment : 1-Patient with a left foot cellulitis and concern for possible underlying abscess likely from gram-positive skin jennifer clinically doubt gram- negative infection 2-patient with renal insufficiency and high risk of nephrotoxicity Plan: 1-patient may benefit from CT of the foot to rule out any underlying abscess that may need to be drained 2-vancomycin pharmacy to dose with a target trough of 15 while watching kidney function and Vanco trough closely. 3-switch Zosyn to Unasyn to decrease risk of, nephrotoxicity We will follow on clinical condition and cultures to further adjust medication if needed Thank you for this consultation we will follow the patient along with you Past Medical History Past Medical History: Heart Failure, Diabetes Mellitus, Hyperlipidemia, Hypertension, Respiratory Disorder Additional Past Medical History / Comment(s): IDDM type II, neuropathy L hand/bilateral feet, CKD stage IV, UTIs, pt states she has been told she has bilateral lung base scar tissue, DANIEL with Cpap/o2 2l/nc at hs, gout, chronic R shoulder pain for months, chronic low back pain/DDD, bilateral glaucoma, hypothyroid. History of Any Multi-Drug Resistant Organisms: None Reported Past Surgical History: Section Additional Past Surgical History / Comment(s): R carpal tunnel release, colonoscopy/benign polypectomies, R breast benign biopsy, D&C, bilateral cataract removals, 3 C-sections. Past Anesthesia/Blood Transfusion Reactions: No Reported Reaction Past Psychological History: No Psychological Hx Reported Smoking Status: Former smoker Past Alcohol Use History: None Reported Past Drug Use History: None Reported - Past Family History Father Family Medical History: Hypertension Additional Family Medical History / Comment(s): Possibly skin cancer. Mother Family Medical History: CVA/TIA, Hypertension Additional Family Medical History / Comment(s): Mother at the age of 59 yrs from a CVA. Medications and Allergies Home Medications Medication Instructions Recorded Confirmed Type Albuterol Nebulized [Ventolin 2.5 mg INHALATION RT-QID PRN 05/21/17 09/27/21 History Nebulized] Aspirin EC [Ecotrin Low Dose] 81 mg PO MOWEFR 05/21/17 09/27/21 History Furosemide [Lasix] 40 mg PO BID 05/21/17 09/27/21 History INSULIN ASPART (NovoLOG) [NovoLOG] 9 unit SQ [facility] 05/21/17 09/27/21 History Insulin Glargine [Lantus] 50 unit SQ HS 05/21/17 09/27/21 History Levothyroxine Sodium [Synthroid] 25 mcg PO DAILY 05/21/17 09/27/21 History [place]-3 Fatty Acids/Fish Oil [Fish 1 cap PO BID 05/21/17 09/27/21 History Oil 1,000 mg Softgel] Simvastatin [Zocor] 40 mg PO HS 05/21/17 09/27/21 History allopurinoL [Zyloprim] 150 mg PO DAILY 05/21/17 09/27/21 History calcitrioL [Rocaltrol] 0.25 mcg PO MOWEFR 05/21/17 09/27/21 History Apixaban [Eliquis] 5 mg PO BID 09/27/21 09/27/21 History Ascorbic Acid [Vitamin C] 500 mg PO DAILY 09/27/21 09/27/21 History Budesonide [Pulmicort] 0.5 mg INHALATION RT-BID 09/27/21 09/27/21 History Calc/Magne/Zinc/D 1 tab PO HS 09/27/21 09/27/21 History Fluticasone Nasal [place] [Flonase 2 spray EA NOSTRIL DAILY 09/27/21 09/27/21 History Nasal [place]] Garlic 1 tab PO DAILY 09/27/21 09/27/21 History Ipratropium Nebulized [Atrovent 0.5 mg INHALATION RT-QID PRN 09/27/21 09/27/21 History Nebulized 0.2 MG/ML] Latanoprost [Xalatan 0.005%] 1 drop BOTH EYES HS 09/27/21 09/27/21 History Montelukast [Singulair] 10 mg PO DAILY 09/27/21 09/27/21 History Spironolactone 50 mg PO DAILY 09/27/21 09/27/21 History Turmeric Root Extract [Turmeric] 500 mg PO DAILY 09/27/21 09/27/21 History amLODIPine [Norvasc] 10 mg PO DAILY 09/27/21 09/27/21 History Allergies Allergy/AdvReac Type Severity Reaction Status Date / Time No Known Allergies Allergy Verified 09/27/21 10:03 Physical Exam Vitals: Vital Signs Temp Pulse Resp BP Pulse Ox 09/27/21 14:11 97.6 F 76 18 162/82 96 09/27/21 13:00 75 18 150/82 94 L 09/27/21 11:35 72 18 155/74 96 09/27/21 10:04 97.7 F 80 18 158/64 96 Intake and Output 09/27/21 09/27/21 09/27/21 06:59 14:59 22:59 Other: Weight 120.202 kg Results CBC & Chem 7: 09/27/21 10:59 09/27/21 10:59 Labs: Abnormal Lab Results - Last 24 Hours (Table) 09/27/21 09/27/21 09/27/21 Range/Units 10:59 10:59 12:17 Hct 46.3 H (34.0-46.0) % Sodium 136 L (137-145) mmol/L BUN 52 H (7-17) mg/dL Creatinine 1.65 H (0.52-1.04) mg/dL Glucose 187 H (74-99) mg/dL POC Glucose (mg/dL) 196 H (75-99) mg/dL C-Reactive Protein 1.1 H (<1.0) mg/dL
[2021-09-28] MEDS: HYDROcodone/APAP 5-325MG 1 EACH TAB PO PRN ×2 (02:26→21:35)
[2021-09-28] MEDS: LEVOTHYROXINE 25 MCG TAB PO SCH (05:03)
[2021-09-28] MEDS ORDERED: AMPICILLIN-SULBACTAM 3 GM in SODIUM CHLORIDE 0.9% 100 ML IVPB SCH (06:00)
[2021-09-28 07:51] LABS: Glucose,Whole Blood 86 mg/dL (75-99)
[2021-09-28] MEDS: ALBUTEROL NEBULIZED 2.5 MG/3 ML INHALATION PRN ×2 (08:11→20:08)
[2021-09-28] MEDS: BUDESONIDE 0.5 MG/2 ML NEBU INHALATION SCH ×2 (08:11→20:08)
[2021-09-28] MEDS: INSULIN ASPART (NovoLOG) 100 UNIT/ML VIAL SQ SCH ×4 (08:17→21:34)
[2021-09-28] MEDS ORDERED: SPIRONOLACTONE 25 MG TAB PO SCH (09:00)
[2021-09-28] MEDS ORDERED: VANCOMYCIN 1,750 MG in SODIUM CHLORIDE 0.9% 500 ML 500 ML IVPB ONE (09:00)
[2021-09-28] MEDS: amLODIPine 10 MG TAB PO SCH (09:31)
[2021-09-28] MEDS: MONTELUKAST 10 MG TAB PO SCH (09:31)
[2021-09-28] MEDS: allopurinoL 300 MG TAB PO SCH (09:31)
[2021-09-28] MEDS: ASPIRIN 81 MG PO SCH (09:31)
[2021-09-28] MEDS: FUROSEMIDE 40 MG TAB PO SCH (09:32)
[2021-09-28] MEDS: ASCORBIC ACID 500 MG TAB PO SCH (09:32)
[2021-09-28] MEDS: FLUTICASONE 50MCG/SPRAY NASAL 16GM EA NOSTRIL SCH (09:33)
[2021-09-28] MEDS ORDERED: NA PHOS,M-B/NA PHOS,DI-BA 133 ML ENEMA RECTAL STA (11:38)
--- NOTE | 2021-09-28 12:28 | P.PN ---
Subjective Progress Note Date: 09/28/21 This patient is a 76-year-old female with a past medical history of CHF, diabetes, chronic kidney disease, hypertension, hyperlipidemia that initially presented to our office last week for evaluation by Dr. Rick for left foot pain. 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 Patient followed up today in the office and clinical exam was consistent with cellulitis and possible abscess. It was recommended by Dr. Rick that patient be sent to the emergency department for evaluation by internal medicine and infectious disease, due to her multiple medical problems. Patient's daughter also voiced concern regarding the patient's safety at home, as she lives alone. The patient's daughter is afraid the patient will fall if she were to return home today. Orthopedic surgery is consulted on admission for further evaluation of her left foot. Besides her left foot pain, patient states she is feeling well. She denies fevers, chills. 09/28/21: Patient is seen and examined bedside this morning. She states the pain in her left foot has improved slightly overnight. She is otherwise doing well, patient denies fevers, chills. Objective - Vital Signs Vital signs: Vital Signs Temp 97.5 F L 09/28/21 05:00 Pulse 70 09/28/21 08:25 Resp 18 09/28/21 05:00 BP 160/60 09/28/21 05:00 Pulse Ox 94 L 09/28/21 05:00 Intake & Output 09/27/21 09/28/21 09/28/21 18:59 06:59 18:59 Intake Total 240 200 Balance 240 200 Weight 120.202 kg Intake: Intake, IV Titration 200 Amount Ampicillin-Sulbactam 3 gm 100 In Sodium Chloride 0.9% 100 ml @ 200 mls/hr IVPB Q6HR JOEL Rx#:[id number] Piperacillin-Tazobactam 3 100 .375 gm In Sodium Chloride 0.9% 100 ml @ 25 mls/hr IVPB Q8H JOEL Rx#: [id number] Oral 240 Other: Voiding Method Toilet Toilet Toilet - Exam On examination, the patient is sitting up in bed in no apparent distress. She is alert and oriented 3. On inspection of the left foot, there is diffuse swelling and erythema of the dorsal forefoot. Resolving ecchymosis of the toes. There is cellulitis of the dorsal forefoot with a small area of fluctuance. The foot is warm and well-perfused. Motor and sensory function intact left lower extremity. Calf is soft and non-tender. - Labs CBC & Chem 7: 09/27/21 10:59 09/28/21 06:14 Labs: Abnormal Lab Results - Last 24 Hours (Table) 09/27/21 09/27/21 09/27/21 Range/Units 10:59 12:17 17:18 ESR 22 H (0-20) mm/hr Sodium 136 L (137-145) mmol/L BUN 52 H (7-17) mg/dL Creatinine 1.65 H (0.52-1.04) mg/dL Glucose 187 H (74-99) mg/dL POC Glucose (mg/dL) 196 H (75-99) mg/dL C-Reactive Protein 1.1 H (<1.0) mg/dL 09/27/21 09/27/21 09/28/21 Range/Units 17:32 19:31 06:14 ESR (0-20) mm/hr Sodium (137-145) mmol/L BUN (7-17) mg/dL Creatinine 1.80 H (0.52-1.04) mg/dL Glucose (74-99) mg/dL POC Glucose (mg/dL) 116 H 145 H (75-99) mg/dL C-Reactive Protein (<1.0) mg/dL Assessment and Plan Assessment: Left foot cellulitis with possible abscess Plan: - Recommend MRI of the left foot to evaluate for possible abscess. MRI was ordered stat this morning. - Continue IV antibiotics under the discretion of infectious disease. Medical management per admitting team. - Further recommendations will be made pending review of MRI. Patient will be made NPO at midnight.
[2021-09-28 12:52] LABS: Glucose,Whole Blood 94 mg/dL (75-99)
[2021-09-28] MEDS: APIXABAN 5 MG TAB PO SCH ×2 (13:19→21:34)
[2021-09-28] MEDS: polyethylene glycoL 3350 17 GM POWD.PACK PO SCH (13:19)
[2021-09-28] MEDS: SENNOSIDES-DOCUSATE SODIUM 1 EACH TAB PO SCH (13:19)
[2021-09-28 14:04] VITALS: BMI 48.4
--- NOTE | 2021-09-28 14:16 | P.PN ---
Subjective Progress Note Date: 09/28/21 HPI 76-year-old female with past medical history of congestive heart failure, type 2 diabetes, hyperlipidemia, hypertension, atrial fibrillation, type 2 diabetes, hypothyroidism, hyperlipidemia diagnosed 1 year ago comes in with worsening swelling involving the left lower extremity for the past 2 weeks. Patient denies any fall or recent trauma to the left foot. She's noticed a swelling including purplish discoloration of all her toes 2 weeks back, the toes color have improved. Patient was seen by Dr. Rick last week. X-rays of the foot was done twice but no acute fracture or acute abnormality noted. Patient is afebrile pulse 80 respiratory rate 18 blood pressure 158/64 oxygen saturation 96% room air. Labs are reviewed, WBC 8.3 hemoglobin 15.1 sodium 136 BUN 52 creatinine 1.67 glucose 187 CRP 1.1 liver enzymes are normal. COVID negative. Patient initiated on Vanco and Zosyn for possible abscess. Orthopedics plans to do I and D for the patient. 09/28: Patient has been seen by Dr. Munson. Recommend continuing vancomycin and change Zosyn to Unasyn. MRI of the left foot has been ordered. Arterial ultrasound of the lower extremities has been obtained and report is pending. 1.8. Capillary blood glucose running between 86 and 145. Sed rate 22. Blood cultures are in progress. A is complaining of constipation and has not had a bowel movement for 1 week. Fleets enema ordered for now as well as Senokot-S 2 tablets daily and MiraLAX 17 g daily added. Left foot has significantly less tenderness today. Erythema is mildly improved. Echocardiogram reveals EF of 55-60% with moderate concentric left ventricular hypertrophy Abdominal x-ray reveals overall nonobstructive bowel gas pattern. ROS Constitutional: Denies chills, Denies fever, Denies lethargy, Denies malaise, Denies poor appetite, Denies weakness, Denies weight loss Eyes: denies decreased vision, denies diplopia, denies discharge, denies pain Ears: deny: decreased hearing Ears, nose, mouth and throat: Denies dental pain, Denies headache, Denies nasal discharge, Denies nose pain Cardiovascular: Denies chest pain, Denies decreased exercise tolerance, Denies edema, Denies high blood pressure, Denies irregular heart beat, Denies palpitations, Denies paroxysmal nocturnal dyspnea, Denies rapid heart beat, Denies shortness of breath Respiratory: Denies congestion, Denies cough, Denies cough with sputum, Denies dyspnea, Denies home oxygen, Denies wheezing Gastrointestinal: Denies abdominal pain, Denies change in bowel habits, Denies coffee ground emesis, reports constipation Denies early satiety, Denies excessive gas, Denies heartburn, Denies hematemesis, Denies hematochezia, Denies loss of appetite, Denies nausea, Denies vomiting Genitourinary: Denies dysuria, Denies flank pain, Denies kidney stones, Denies menorrhagia, Denies urgency, Denies urinary frequency Musculoskeletal: endorses gait dysfunction, endorses limitation of motion, endorses pain and swelling lower ext, Denies morning stiffness, Denies muscle cramps Integumentary: Denies rash, Denies wounds, Denies brittle nails, Denies change in hair/nails, Denies darkening of skin Neurological: Denies balance difficulties, Denies change in speech, Denies double vision, Denies gait dysfunction, Denies loss of vision, Denies motor disturbance, Denies numbness, Denies paralysis, Denies paresthesias, Denies seizures Psychiatric: Denies anxiety, Denies depression Endocrine: Denies excessive sweating, Denies excessive thirst, mild elevation of blood sugars Denies palpitations Hematologic/Lymphatic: Denies easy bruising, Denies lymphadenopathy Physical exam - Constitutional General appearance: cooperative, no acute distress, obese 76-year-old female, resting in bed and appears to be comfortable and in no acute distress - EENT Eyes: anicteric sclerae, PERRLA, normal appearance ENT: hearing grossly normal - Neck Neck: no lymphadenopathy, normal ROM, no other, no rigidity, no stridor, no thyromegaly - Respiratory Respiratory: bilateral: CTA, negative: diminished, dullness, rales, rhonchi - Cardiovascular Rhythm: regular Heart sounds: normal: S1, S2 Abnormal Heart Sounds: no systolic murmur, no diastolic murmur, no rub, no S3 Gallop, no S4 Gallop, no click, no other - Gastrointestinal General gastrointestinal: normal bowel sounds, soft, mild abdominal tenderness - Integumentary Integumentary: swelling involving the dorsal surface of the foot, with moderate tenderness on light touch, peripheral pulses are 2 + , purplish discoloration of the toes, perfusion > 2 sec - Neurologic Neurologic: no sensory or motor deficit - Musculoskeletal Musculoskeletal: , strength equal bilaterally - Psychiatric Psychiatric: A&O x's 3, appropriate affect Assessment and plan Left foot abscess with purplish discoloration of the toes - Unclear etiology - Rule out arterial insufficiency, arterial ultrasoundand report is pending, peripheral pulses intact -Continue vancomycin and Unasyn - Orthopedic consultation Appreciated - Infectious disease consultation appreciated - MRI of the foot to rule out underlying etiology - XRay of the foot was negative for acute fracture per documentation no imaging in the chart present -Pain controlled with morphine 4 mg IV every 4 hours Hypertension -Amlodipine 10 mg by mouth daily History of congestive heart failure - Hold spironolactone - Lasix reduced to 40 mg by mouth daily from twice daily Paroxysmal atrial fibrillation currently in sinus rhythm -Patient not on rate control medication - Continue Eliquis 5 mg twice a day Type 2 diabetes - Continue glargine 50 units at bedtime -Insulin aspart 9 units subcu before meals at bedtime Chronic kidney disease Stage III - We will reduce Lasix to 40 mg daily - Calcitriol 0.25 g Friday and Friday Hypothyroidism - Continue levothyroxine 25 g by mouth daily Obstipation. Fleets enema, Senokot S2 tablets daily, MiraLAX 17 g daily added. CODE STATUS full code DVT prophylaxis on Eliquis 5 twice a day DISCHARGE PLAN Home without home care Impression and plan of care have been directed as dictated by the signing physician. Emi Salinas nurse practitioner acting as scribe for signing physician. Objective - Vital Signs Vital signs: Vital Signs Temp 97.5 F L 09/28/21 05:00 Pulse 70 09/28/21 08:25 Resp 18 09/28/21 05:00 BP 160/60 09/28/21 05:00 Pulse Ox 94 L 09/28/21 05:00 Intake & Output 09/27/21 09/28/21 09/28/21 18:59 06:59 18:59 Intake Total 240 200 Balance 240 200 Weight 120.202 kg Intake: Intake, IV Titration 200 Amount Ampicillin-Sulbactam 3 gm 100 In Sodium Chloride 0.9% 100 ml @ 200 mls/hr IVPB Q6HR [facility] Rx#:[id number] Piperacillin-Tazobactam 3 100 .375 gm In Sodium Chloride 0.9% 100 ml @ 25 mls/hr IVPB Q8H [facility] Rx#: [id number] Oral 240 Other: Voiding Method Toilet Toilet - Labs CBC & Chem 7: 09/27/21 10:59 09/28/21 06:14 Labs: Abnormal Lab Results - Last 24 Hours (Table) 09/27/21 09/27/21 09/27/21 Range/Units 10:59 10:59 12:17 Hct 46.3 H (34.0-46.0) % ESR (0-20) mm/hr Sodium 136 L (137-145) mmol/L BUN 52 H (7-17) mg/dL Creatinine 1.65 H (0.52-1.04) mg/dL Glucose 187 H (74-99) mg/dL POC Glucose (mg/dL) 196 H (75-99) mg/dL C-Reactive Protein 1.1 H (<1.0) mg/dL 09/27/21 09/27/21 09/27/21 Range/Units 17:18 17:32 19:31 Hct (34.0-46.0) % ESR 22 H (0-20) mm/hr Sodium (137-145) mmol/L BUN (7-17) mg/dL Creatinine (0.52-1.04) mg/dL Glucose (74-99) mg/dL POC Glucose (mg/dL) 116 H 145 H (75-99) mg/dL C-Reactive Protein (<1.0) mg/dL 09/28/21 Range/Units 06:14 Hct (34.0-46.0) % ESR (0-20) mm/hr Sodium (137-145) mmol/L BUN (7-17) mg/dL Creatinine 1.80 H (0.52-1.04) mg/dL Glucose (74-99) mg/dL POC Glucose (mg/dL) (75-99) mg/dL C-Reactive Protein (<1.0) mg/dL
--- NOTE | 2021-09-28 15:30 | MR ---
MRI left foot without contrast HISTORY: Cellulitis, erythema and possible abscess Multiplanar multisequence imaging obtained through the left foot. No intravenous contrast due to espinoza ent's renal insufficiency. Subcutaneous edema changes are present. There is abnormal signal within the soft tissues of the foot consistent with myositis, cellulitis or edema. No evident osteomyelitis. The plantar aponeurosis, Ach illes tendon, flexor and extensor tendons are intact, Proteus longus and brevis tendons are intact . Degenerative changes are present at the tarsal metatarsal joints. Degenerative change present at the metatarsophalangeal joint of the first digit, intertarsal joints also show degenerative change, subc hondral edema, joint space loss, subchondral eburnation and marginal spurring. There is a plantar amador caneal spur present. No evident fracture or dislocation. IMPRESSION: No significant abnormality evident to suggest abscess. Lack of contrast could compromise sensitivity. Additional findings above.
[2021-09-28 16:50] LABS: Glucose,Whole Blood 183 mg/dL (75-99)
--- NOTE | 2021-09-28 17:01 | P.PN ---
Subjective Progress Note Date: 09/28/21 Principal diagnosis: Left foot cellulitis Patient is a 76-year-old female presenting to the hospital with left foot pain swelling and redness this patient has been diagnosed with a left foot cellulitis and was consulted for possible abscess. On today's evaluation that is 09/28/2021, the patient denies having any fever or any chills, the patient left foot pain swelling redness is slightly decreased, patient currently do not have a new poor wound or any drainage no chest pain shortness of breath or cough no abdominal pain and no diarrhea Objective - Vital Signs Vital signs: Vital Signs Temp 97.5 F L 09/28/21 12:55 Pulse 75 09/28/21 12:55 Resp 18 09/28/21 12:55 BP 160/76 09/28/21 12:55 Pulse Ox 94 L 09/28/21 12:55 Intake & Output 09/27/21 09/28/21 09/28/21 18:59 06:59 18:59 Intake Total 240 200 Balance 240 200 Weight 120.202 kg 120.202 kg Intake: Intake, IV Titration 200 Amount Ampicillin-Sulbactam 3 gm 100 In Sodium Chloride 0.9% 100 ml @ 200 mls/hr IVPB Q6HR [facility] Rx#:[id number] Piperacillin-Tazobactam 3 100 .375 gm In Sodium Chloride 0.9% 100 ml @ 25 mls/hr IVPB Q8H [facility] Rx#: [id number] Oral 240 Other: Voiding Method Toilet Toilet Toilet - Exam GENERAL DESCRIPTION:[ Patient is awake and alert in no distress] HEENT: [Oral mucosa is dry and no pharyngeal erythema] RESPIRATORY SYSTEM: [Unlabored breathing clear to auscultation] CARDIA VASCULAR SYSTEM: [S1-S2 regular rate and rhythm no murmur] GI: [Abdominal soft there's no tenderness no organomegaly] EXTREMITIES: [Left foot swelling and redness has slightly decreased not as tender to touch] - Labs CBC & Chem 7: 09/27/21 10:59 09/28/21 06:14 Labs: Abnormal Lab Results - Last 24 Hours (Table) 09/27/21 09/27/21 09/27/21 Range/Units 17:18 17:32 19:31 ESR 22 H (0-20) mm/hr Creatinine (0.52-1.04) mg/dL POC Glucose (mg/dL) 116 H 145 H (75-99) mg/dL 09/28/21 09/28/21 Range/Units 06:14 16:48 ESR (0-20) mm/hr Creatinine 1.80 H (0.52-1.04) mg/dL POC Glucose (mg/dL) 183 H (75-99) mg/dL Microbiology - Last 24 Hours (Table) 09/27/21 10:50 Blood Culture - Preliminary Blood No Growth after 24 hours 09/27/21 10:35 Blood Culture - Preliminary Blood No Growth after 24 hours Assessment and Plan (1) Cellulitis of left foot Current Visit: Yes Status: Acute Code(s): L03.116 - CELLULITIS OF LEFT LOWER LIMB SNOMED Code(s): 113409314 Plan: 1-patient with her left foot cellulitis in this patient seemed to have show some clinical improvement Unasyn dose has been cut down to every 12 hr per pharmacy will be continued we will discontinue vancomycin to decrease risk of nephrotoxicity and monitor clinical course closely
[2021-09-28] MEDS: AMPICILLIN-SULBACTAM 3 GM in SODIUM CHLORIDE 0.9% 100 ML IVPB SCH (17:39)
[2021-09-28 20:13] LABS: Glucose,Whole Blood 173 mg/dL (75-99)
[2021-09-28] MEDS: ATORVASTATIN 20 MG TAB PO SCH (21:34)
[2021-09-28] MEDS: LATANOPROST 0.005% OPHTH DROPS 2.5 ML BTL BOTH EYES SCH (21:35)
[2021-09-28] MEDS: INSULIN DETEMIR (LEVEMIR) 100 UNIT/ML SYR SQ SCH (21:35)
[2021-09-29] MEDS: HYDROcodone/APAP 5-325MG 1 EACH TAB PO PRN ×2 (05:35→22:37)
[2021-09-29] MEDS: AMPICILLIN-SULBACTAM 3 GM in SODIUM CHLORIDE 0.9% 100 ML IVPB SCH ×2 (05:35→18:07)
[2021-09-29] MEDS: LEVOTHYROXINE 25 MCG TAB PO SCH (05:35)
[2021-09-29 07:23] LABS: African American GFR (CKD) 36 (>60 ml/min/1.73 sqM); Anion Gap 6 mmol/L; Blood Urea Nitrogen 40 mg/dL (7-17); Calcium 9.3 mg/dL (8.4-10.2); Carbon Dioxide 31 mmol/L (22-30); Chloride 101 mmol/L (98-107); Glucose 133 mg/dL (74-99); Non-African American GFR(CKD) 31 (>60 ml/min/1.73 sqM); Potassium 4.2 mmol/L (3.5-5.1); Sodium 138 mmol/L (137-145)
[2021-09-29 07:28] LABS: Vancomycin,Random 15.4 ug/mL
[2021-09-29] MEDS: BUDESONIDE 0.5 MG/2 ML NEBU INHALATION SCH ×2 (07:48→21:36)
[2021-09-29 07:58] LABS: Glucose,Whole Blood 116 mg/dL (75-99)
--- NOTE | 2021-09-29 09:05 | P.PN ---
Subjective Progress Note Date: 09/29/21 The patient states he has improved since I last saw her in the office. The pain and swelling in her foot is better this morning on IV antibiotics. She denies feeling systemically ill. Objective - Vital Signs Vital signs: Vital Signs Temp 97.9 F 09/29/21 05:00 Pulse 72 09/29/21 05:00 Resp 18 09/29/21 05:00 BP 171/80 09/29/21 05:00 Pulse Ox 94 L 09/29/21 05:00 Intake & Output 09/28/21 09/29/21 09/29/21 18:59 06:59 18:59 Intake Total 100 Output Total 2 2 Balance -2 98 Weight 120.202 kg Intake: Intake, IV Titration 100 Amount Ampicillin-Sulbactam 3 gm 100 In Sodium Chloride 0.9% 100 ml @ 200 mls/hr IVPB Q12H [facility] Rx#:[id number] Output: Urine 2 2 Other: Voiding Method Toilet Toilet # Voids 2 # Bowel Movements 1 - Exam The patient is sitting up in bed and is alert and able to answer questions. A focused examination of the left foot was conducted. On inspection there is e rythema and slight warmth to the touch but no open wounds or areas of fluctuance. There is no pain with passive range of motion of the toes. - Labs CBC & Chem 7: 09/27/21 10:59 09/29/21 06:18 Labs: Abnormal Lab Results - Last 24 Hours (Table) 09/28/21 09/28/21 09/29/21 Range/Units 16:48 20:11 06:18 Carbon Dioxide 31 H (22-30) mmol/L BUN 40 H (7-17) mg/dL Creatinine 1.59 H (0.52-1.04) mg/dL Glucose 133 H (74-99) mg/dL POC Glucose (mg/dL) 183 H 173 H (75-99) mg/dL 09/29/21 Range/Units 07:56 Carbon Dioxide (22-30) mmol/L BUN (7-17) mg/dL Creatinine (0.52-1.04) mg/dL Glucose (74-99) mg/dL POC Glucose (mg/dL) 116 H (75-99) mg/dL Microbiology - Last 24 Hours (Table) 09/27/21 10:50 Blood Culture - Preliminary Blood No Growth after 24 hours 09/27/21 10:35 Blood Culture - Preliminary Blood No Growth after 24 hours Assessment and Plan Assessment: The patient is a 76-year-old female with multiple medical problems who is admitted with left foot cellulitis. There is no clinical or advanced imaging findings suggestive of a deep abscess requiring surgical debridement. Plan: The patient is improved on IV antibiotics. Her MRI did not show any discrete abscess. Have no plans for surgical treatment at this time. I would recommend antibiotics per infectious disease. The patient is okay to discharge from an orthopedic standpoint on antibiotics when she is cleared by internal medicine and infectious disease.
[2021-09-29] MEDS: INSULIN ASPART (NovoLOG) 100 UNIT/ML VIAL SQ SCH ×4 (10:46→20:47)
[2021-09-29] MEDS: ASCORBIC ACID 500 MG TAB PO SCH (10:46)
[2021-09-29] MEDS: APIXABAN 5 MG TAB PO SCH ×2 (10:46→21:30)
[2021-09-29] MEDS: FUROSEMIDE 40 MG TAB PO SCH (10:56)
[2021-09-29] MEDS: amLODIPine 10 MG TAB PO SCH (10:56)
[2021-09-29] MEDS: MONTELUKAST 10 MG TAB PO SCH (10:56)
[2021-09-29] MEDS: allopurinoL 300 MG TAB PO SCH (10:56)
[2021-09-29] MEDS: SENNOSIDES-DOCUSATE SODIUM 1 EACH TAB PO SCH (10:56)
[2021-09-29] MEDS: polyethylene glycoL 3350 17 GM POWD.PACK PO SCH (10:57)
[2021-09-29 12:24] LABS: Glucose,Whole Blood 137 mg/dL (75-99)
[2021-09-29] MEDS: FLUTICASONE 50MCG/SPRAY NASAL 16GM EA NOSTRIL SCH ×2 (12:25→22:37)
[2021-09-29 17:36] LABS: Glucose,Whole Blood 121 mg/dL (75-99)
--- NOTE | 2021-09-29 17:57 | P.PN ---
Subjective Progress Note Date: 09/29/21 HPI 76-year-old female with past medical history of congestive heart failure, type 2 diabetes, hyperlipidemia, hypertension, atrial fibrillation, type 2 diabetes, hypothyroidism, hyperlipidemia diagnosed 1 year ago comes in with worsening swelling involving the left lower extremity for the past 2 weeks. Patient denies any fall or recent trauma to the left foot. She's noticed a swelling including purplish discoloration of all her toes 2 weeks back, the toes color have improved. Patient was seen by Dr. Rick last week. X-rays of the foot was done twice but no acute fracture or acute abnormality noted. Patient is afebrile pulse 80 respiratory rate 18 blood pressure 158/64 oxygen saturation 96% room air. Labs are reviewed, WBC 8.3 hemoglobin 15.1 sodium 136 BUN 52 creatinine 1.67 glucose 187 CRP 1.1 liver enzymes are normal. COVID negative. Patient initiated on Vanco and Zosyn for possible abscess. Orthopedics plans to do I and D for the patient. 09/28: Patient has been seen by Dr. Munson. Recommend continuing vancomycin and change Zosyn to Unasyn. MRI of the left foot has been ordered. Arterial ultrasound of the lower extremities has been obtained and report is pending. 1.8. Capillary blood glucose running between 86 and 145. Sed rate 22. Blood cultures are in progress. A is complaining of constipation and has not had a bowel movement for 1 week. Fleets enema ordered for now as well as Senokot-S 2 tablets daily and MiraLAX 17 g daily added. Left foot has significantly less tenderness today. Erythema is mildly improved. Echocardiogram reveals EF of 55-60% with moderate concentric left ventricular hypertrophy Abdominal x-ray reveals overall nonobstructive bowel gas pattern. 09/29 patient is examined at bedside. Continues to have mild inflammation involving the dorsal aspect with mild bulging in the midfoot suggestive of underlying inflammation. MRI foot was negative for any acute abscess. 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 Continue IV antibiotics with Unasyn and vancomycin. The patient is possible discharge tomorrow once cleared by ID. Patient is afebrile and WBC count normal. ESR CRP ordered today. ROS Constitutional: Denies chills, Denies fever, Denies lethargy, Denies malaise, Denies poor appetite, Denies weakness, Denies weight loss Eyes: denies decreased vision, denies diplopia, denies discharge, denies pain Ears: deny: decreased hearing Ears, nose, mouth and throat: Denies dental pain, Denies headache, Denies nasal discharge, Denies nose pain Cardiovascular: Denies chest pain, Denies decreased exercise tolerance, Denies edema, Denies high blood pressure, Denies irregular heart beat, Denies palpitations, Denies paroxysmal nocturnal dyspnea, Denies rapid heart beat, Denies shortness of breath Respiratory: Denies congestion, Denies cough, Denies cough with sputum, Denies dyspnea, Denies home oxygen, Denies wheezing Gastrointestinal: Denies abdominal pain, Denies change in bowel habits, Denies coffee ground emesis, reports constipation Denies early satiety, Denies excessive gas, Denies heartburn, Denies hematemesis, Denies hematochezia, Denies loss of appetite, Denies nausea, Denies vomiting Genitourinary: Denies dysuria, Denies flank pain, Denies kidney stones, Denies menorrhagia, Denies urgency, Denies urinary frequency Musculoskeletal: endorses gait dysfunction, endorses limitation of motion, endorses pain and swelling lower ext, Denies morning stiffness, Denies muscle cramps Integumentary: Left dorsal foot cellulitis Denies brittle nails, Denies change in hair/nails, Denies darkening of skin Physical exam - Constitutional General appearance: cooperative, no acute distress, obese 76-year-old female, resting in bed and appears to be comfortable and in no acute distress - EENT Eyes: anicteric sclerae, PERRLA, normal appearance ENT: hearing grossly normal - Neck Neck: no lymphadenopathy, normal ROM, no other, no rigidity, no stridor, no thyromegaly - Respiratory Respiratory: bilateral: CTA, negative: diminished, dullness, rales, rhonchi - Cardiovascular Rhythm: regular Heart sounds: normal: S1, S2 Abnormal Heart Sounds: no systolic murmur, no diastolic murmur, no rub, no S3 Gallop, no S4 Gallop, no click, no other - Gastrointestinal General gastrointestinal: normal bowel sounds, soft, mild abdominal tenderness - Integumentary Integumentary: swelling involving the dorsal surface of the foot, with moderate tenderness on light touch, peripheral pulses are 2 + , purplish discoloration of the toes, perfusion > 2 sec - Neurologic Neurologic: no sensory or motor deficit - Musculoskeletal Musculoskeletal: , strength equal bilaterally - Psychiatric Psychiatric: A&O x's 3, appropriate affect Assessment and plan Left foot cellulitis abscess ruled out - Unclear etiology - Rule out arterial insufficiency, arterial ultrasoundand report is pending, peripheral pulses intact -Continue vancomycin and Unasyn - Orthopedic consultation Appreciated - Infectious disease consultation appreciated - MRI of the foot negative for abscesses though done without contrast - XRay of the foot was negative for acute fracture per documentation no imaging in the chart present -Pain controlled with morphine 4 mg IV every 4 hours Hypertension -Amlodipine 10 mg by mouth daily History of congestive heart failure - Hold spironolactone - Lasix reduced to 40 mg by mouth daily from twice daily Paroxysmal atrial fibrillation currently in sinus rhythm -Patient not on rate control medication - Continue Eliquis 5 mg twice a day Type 2 diabetes - Continue glargine 50 units at bedtime -Insulin aspart 9 units subcu before meals at bedtime Chronic kidney disease Stage III - We will reduce Lasix to 40 mg daily - Calcitriol 0.25 g Friday and Friday Hypothyroidism - Continue levothyroxine 25 g by mouth daily Obstipation. Fleets enema, Senokot S2 tablets daily, MiraLAX 17 g daily added. CODE STATUS full code DVT prophylaxis on Eliquis 5 twice a day DISCHARGE PLAN Home without home care Objective - Vital Signs Vital signs: Vital Signs Temp 98.2 F 09/29/21 14:21 Pulse 75 09/29/21 14:21 Resp 18 09/29/21 14:21 BP 133/70 09/29/21 14:21 Pulse Ox 96 09/29/21 14:21 Intake & Output 09/28/21 09/29/21 09/29/21 18:59 06:59 18:59 Intake Total 100 240 Output Total 2 2 2 Balance -2 98 238 Weight 120.202 kg Intake: Intake, IV Titration 100 Amount Ampicillin-Sulbactam 3 gm 100 In Sodium Chloride 0.9% 100 ml @ 200 mls/hr IVPB Q12H [facility] Rx#:[id number] Oral 240 Output: Urine 2 2 2 Other: Voiding Method Toilet Toilet Toilet # Voids 2 2 # Bowel Movements 1 - Labs CBC & Chem 7: 09/27/21 10:59 09/29/21 06:18 Labs: Abnormal Lab Results - Last 24 Hours (Table) 09/28/21 09/29/21 09/29/21 Range/Units 20:11 06:18 07:56 Carbon Dioxide 31 H (22-30) mmol/L BUN 40 H (7-17) mg/dL Creatinine 1.59 H (0.52-1.04) mg/dL Glucose 133 H (74-99) mg/dL POC Glucose (mg/dL) 173 H 116 H (75-99) mg/dL 09/29/21 09/29/21 Range/Units 12:22 17:35 Carbon Dioxide (22-30) mmol/L BUN (7-17) mg/dL Creatinine (0.52-1.04) mg/dL Glucose (74-99) mg/dL POC Glucose (mg/dL) 137 H 121 H (75-99) mg/dL Microbiology - Last 24 Hours (Table) 09/27/21 10:35 Blood Culture - Preliminary Blood No Growth after 48 hours 09/27/21 10:50 Blood Culture - Preliminary Blood No Growth after 48 hours
[2021-09-29 20:09] LABS: Glucose,Whole Blood 127 mg/dL (75-99)
[2021-09-29] MEDS: ATORVASTATIN 20 MG TAB PO SCH (21:30)
[2021-09-29] MEDS: INSULIN DETEMIR (LEVEMIR) 100 UNIT/ML SYR SQ SCH (21:30)
[2021-09-29] MEDS: LATANOPROST 0.005% OPHTH DROPS 2.5 ML BTL BOTH EYES SCH (21:30)
--- NOTE | 2021-09-29 23:09 | P.PN ---
Subjective Progress Note Date: 09/29/21 Principal diagnosis: Left foot cellulitis Patient is a 76-year-old female presenting to the hospital with left foot pain swelling and redness this patient has been diagnosed with a left foot cellulitis and was consulted for possible abscess. On today's evaluation that is 09/29/2021, the patient remains to be febrile, the patient left foot pain swelling redness has decreased in intensity and the patient is able to walk without significant pain, patient currently do not have a new poor wound or any drainage no chest pain shortness of breath or cough no abdominal pain and no diarrhea Objective - Vital Signs Vital signs: Vital Signs Temp 98.3 F 09/29/21 20:20 Pulse 73 09/29/21 20:20 Resp 18 09/29/21 20:20 BP 157/73 09/29/21 20:20 Pulse Ox 94 L 09/29/21 20:20 Intake & Output 09/29/21 09/29/21 09/30/21 06:59 18:59 06:59 Intake Total 100 600 Output Total 2 2 Balance 98 598 Intake: Intake, IV Titration 100 Amount Ampicillin-Sulbactam 3 gm 100 In Sodium Chloride 0.9% 100 ml @ 200 mls/hr IVPB Q12H [facility] Rx#:[id number] Oral 600 Output: Urine 2 2 Other: Voiding Method Toilet Toilet # Voids 2 3 - Exam GENERAL DESCRIPTION:[ Patient is awake and alert in no distress] HEENT: [Oral mucosa is dry and no pharyngeal erythema] RESPIRATORY SYSTEM: [Unlabored breathing clear to auscultation] CARDIA VASCULAR SYSTEM: [S1-S2 regular rate and rhythm no murmur] GI: [Abdominal soft there's no tenderness no organomegaly] EXTREMITIES: [Left foot swelling and redness has slightly decreased not as tender to touch however there is a small fluctuant area on the dorsum aspect] - Labs CBC & Chem 7: 09/27/21 10:59 09/29/21 06:18 Labs: Abnormal Lab Results - Last 24 Hours (Table) 09/29/21 09/29/21 09/29/21 Range/Units 06:18 07:56 12:22 Carbon Dioxide 31 H (22-30) mmol/L BUN 40 H (7-17) mg/dL Creatinine 1.59 H (0.52-1.04) mg/dL Glucose 133 H (74-99) mg/dL POC Glucose (mg/dL) 116 H 137 H (75-99) mg/dL 09/29/21 09/29/21 Range/Units 17:35 20:08 Carbon Dioxide (22-30) mmol/L BUN (7-17) mg/dL Creatinine (0.52-1.04) mg/dL Glucose (74-99) mg/dL POC Glucose (mg/dL) 121 H 127 H (75-99) mg/dL Microbiology - Last 24 Hours (Table) 09/27/21 10:35 Blood Culture - Preliminary Blood No Growth after 48 hours 09/27/21 10:50 Blood Culture - Preliminary Blood No Growth after 48 hours Assessment and Plan (1) Cellulitis of left foot Current Visit: Yes Status: Acute Code(s): L03.116 - CELLULITIS OF LEFT LOWER LIMB SNOMED Code(s): 540875741 Plan: 1-patient with her left foot cellulitis in this patient seemed to have show some clinical improvement, the redness however small area of fluctuance on the dorsum aspect possible abscess and may benefit from a I&D and culture patient continue with Unasyn we'll repeat the blood count and CRP tomorrow Time with Patient: Less than 30
[2021-09-30] MEDS: AMPICILLIN-SULBACTAM 3 GM in SODIUM CHLORIDE 0.9% 100 ML IVPB SCH ×2 (05:19→18:01)
[2021-09-30] MEDS: LEVOTHYROXINE 25 MCG TAB PO SCH (05:23)
[2021-09-30 07:34] LABS: Glucose,Whole Blood 52 mg/dL (75-99)
[2021-09-30] MEDS: INSULIN ASPART (NovoLOG) 100 UNIT/ML VIAL SQ SCH ×4 (07:43→21:04)
[2021-09-30 07:53] LABS: Glucose,Whole Blood 91 mg/dL (75-99)
[2021-09-30 08:34] LABS: African American GFR (CKD) 37 (>60 ml/min/1.73 sqM); Anion Gap 9 mmol/L; Blood Urea Nitrogen 37 mg/dL (7-17); C Reactive Protein <0.5 mg/dL (<1.0); Calcium 9.4 mg/dL (8.4-10.2); Carbon Dioxide 29 mmol/L (22-30); Chloride 102 mmol/L (98-107); Non-African American GFR(CKD) 32 (>60 ml/min/1.73 sqM); Potassium 4.2 mmol/L (3.5-5.1); Sodium 140 mmol/L (137-145)
[2021-09-30] MEDS: BUDESONIDE 0.5 MG/2 ML NEBU INHALATION SCH ×2 (08:58→20:25)
[2021-09-30 09:32] LABS: Glucose 47 mg/dL (74-99)
--- NOTE | 2021-09-30 09:58 | P.PN ---
Subjective Progress Note Date: 09/30/21 The patient is doing well this morning and has minimal pain in her foot. She says she is improving on antibiotics Objective - Vital Signs Vital signs: Vital Signs Temp 97.6 F 09/30/21 04:51 Pulse 80 09/30/21 09:08 Resp 18 09/30/21 04:51 BP 162/77 09/30/21 04:51 Pulse Ox 96 09/30/21 04:51 Intake & Output 09/29/21 09/30/21 09/30/21 18:59 06:59 18:59 Intake Total 600 100 Output Total 2 Balance 598 100 Intake: Intake, IV Titration 100 Amount Ampicillin-Sulbactam 3 gm 100 In Sodium Chloride 0.9% 100 ml @ 200 mls/hr IVPB Q12H [facility] Rx#:[id number] Oral 600 Output: Urine 2 Other: Voiding Method Toilet Toilet # Voids 3 3 - Exam The patient is sitting up in bed and is alert and able to answer questions. A focused examination of her foot was conducted. On inspection there is mild er ythema diffusely throughout the dorsal forefoot. There is resolving ecchymosis in the toes. There is a small raised area at the base of the second and third toes, but does not appear fluctuant and is more indurated. It is mildly tender. - Labs CBC & Chem 7: 09/27/21 10:59 09/30/21 07:28 Labs: Abnormal Lab Results - Last 24 Hours (Table) 09/29/21 09/29/21 09/29/21 Range/Units 12:22 17:35 20:08 BUN (7-17) mg/dL Creatinine (0.52-1.04) mg/dL Glucose (74-99) mg/dL POC Glucose (mg/dL) 137 H 121 H 127 H (75-99) mg/dL 09/30/21 09/30/21 Range/Units 07:28 07:33 BUN 37 H (7-17) mg/dL Creatinine 1.53 H (0.52-1.04) mg/dL Glucose 47 L* (74-99) mg/dL POC Glucose (mg/dL) 52 L (75-99) mg/dL Microbiology - Last 24 Hours (Table) 09/27/21 10:35 Blood Culture - Preliminary Blood No Growth after 48 hours 09/27/21 10:50 Blood Culture - Preliminary Blood No Growth after 48 hours Assessment and Plan Assessment: The patient is 76-year-old female with foot cellulitis improving on antibiotics Plan: The patient continues to improve on IV antibiotics. I do not feel the patient needs a surgical debridement at this time. She has a small area of induration over the dorsal foot but this is also improving. Her MRI shows no joslyn abscess. The patient also states that she feels much better and does not want surgery. I agree with this. Due to the fact that Dr. Munson recommended operative debridement I suggested to the patient attempting to aspirate the area of induration over her foot which she agreed to. A small amount of bloody fluid was aspirated and sent for cultures. There was absolutely no purulence expressed. The patient tolerated this well. An order was placed for cultures and the sample was sent to the lab. We will continue to monitor her and make recommendations as needed. I have no plans for operative intervention at this time, but would certainly reconsider if her clinical picture worsens. PROCEDURE: The skin over the dorsal aspect of the foot was prepped with alcohol and ChloraPrep. The area of induration was then sterilely aspirated using an 18-gauge needle. The needle was directed directly into the center of the area of induration and half a milliliter of bloody fluid was aspirated. This was placed onto a culture swab. I then gently attempted to expressed fluid through the needle puncture site and nothing was expressed. A Band-Aid was applied. The patient tolerated this well. Time with Patient: Greater than 30
[2021-09-30 11:17] LABS: Basophils # (A) 0.09 X 10*3/uL (0.00-0.10); Basophils % (A) 1.1 %; Eosinophils # (A) 0.45 X 10*3/uL (0.04-0.35); Eosinophils % (A) 5.6 %; HCT 43.8 % (37.2-46.3); HGB 13.3 g/dL (12.0-15.0); Immature Grans, Automated 0.5 %; Lymphocytes # (A) 1.54 X 10*3/uL (0.90-5.00); Lymphocytes % (A) 19.1 %; MCH 29.2 pg (27.0-32.0); MCHC 30.4 g/dL (32.0-37.0); MCV 96.3 fL (80.0-97.0); Mean Platelet Volume 12.2 fL (9.5-12.2); Monocytes # (A) 0.73 X 10*3/uL (0.20-1.00); Monocytes % (A) 9.1 %; NRBC Per 100 WBC 0 /100 WBCS (0.0-0.0); Neutrophils % (A) 64.6 %; Platelet Count 244 X 10*3/uL (140-440); RBC 4.55 X 10*6/uL (4.10-5.20); RDW 13.7 % (11.5-14.5); WBC 8.05 X 10*3/uL (4.50-10.00)
[2021-09-30] MEDS: APIXABAN 5 MG TAB PO SCH ×2 (12:43→21:53)
[2021-09-30] MEDS: allopurinoL 300 MG TAB PO SCH (12:43)
[2021-09-30] MEDS: FUROSEMIDE 40 MG TAB PO SCH (12:44)
[2021-09-30] MEDS: polyethylene glycoL 3350 17 GM POWD.PACK PO SCH (12:44)
[2021-09-30] MEDS: ASCORBIC ACID 500 MG TAB PO SCH (12:44)
[2021-09-30] MEDS: SENNOSIDES-DOCUSATE SODIUM 1 EACH TAB PO SCH (12:45)
[2021-09-30] MEDS: amLODIPine 10 MG TAB PO SCH (12:46)
[2021-09-30 12:51] LABS: Glucose,Whole Blood 147 mg/dL (75-99)
[2021-09-30] MEDS: MONTELUKAST 10 MG TAB PO SCH (13:50)
--- NOTE | 2021-09-30 16:11 | P.PN ---
Subjective Progress Note Date: 09/30/21 HPI 76-year-old female with past medical history of congestive heart failure, type 2 diabetes, hyperlipidemia, hypertension, atrial fibrillation, type 2 diabetes, hypothyroidism, hyperlipidemia diagnosed 1 year ago comes in with worsening swelling involving the left lower extremity for the past 2 weeks. Patient denies any fall or recent trauma to the left foot. She's noticed a swelling including purplish discoloration of all her toes 2 weeks back, the toes color have improved. Patient was seen by Dr. Rick last week. X-rays of the foot was done twice but no acute fracture or acute abnormality noted. Patient is afebrile pulse 80 respiratory rate 18 blood pressure 158/64 oxygen saturation 96% room air. Labs are reviewed, WBC 8.3 hemoglobin 15.1 sodium 136 BUN 52 creatinine 1.67 glucose 187 CRP 1.1 liver enzymes are normal. COVID negative. Patient initiated on Vanco and Zosyn for possible abscess. Orthopedics plans to do I and D for the patient. 09/28: Patient has been seen by Dr. Munson. Recommend continuing vancomycin and change Zosyn to Unasyn. MRI of the left foot has been ordered. Arterial ultrasound of the lower extremities has been obtained and report is pending. 1.8. Capillary blood glucose running between 86 and 145. Sed rate 22. Blood cultures are in progress. A is complaining of constipation and has not had a bowel movement for 1 week. Fleets enema ordered for now as well as Senokot-S 2 tablets daily and MiraLAX 17 g daily added. Left foot has significantly less tenderness today. Erythema is mildly improved. Echocardiogram reveals EF of 55-60% with moderate concentric left ventricular hypertrophy Abdominal x-ray reveals overall nonobstructive bowel gas pattern. 09/29 patient is examined at bedside. Continues to have mild inflammation involving the dorsal aspect with mild bulging in the midfoot suggestive of underlying inflammation. MRI foot was negative for any acute abscess. 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 Continue IV antibiotics with Unasyn and vancomycin. The patient is possible discharge tomorrow once cleared by ID. Patient is afebrile and WBC count normal. ESR CRP ordered today. 09/30 patient examined at bedside. She has mild inflammation involving the dorsal aspect of the feet. Pain is better controlled. Patient underwent aspiration under sterile conditions by orthopedics. Half mL of bloody fluid was aspirated sent for culture. No purulent drainage was noted. Wound cultures pending. Continue IV antibiotics with plan to discharge once culture finalizes ROS Constitutional: Denies chills, Denies fever, Denies lethargy, Denies malaise, Denies poor appetite, Denies weakness, Denies weight loss Eyes: denies decreased vision, denies diplopia, denies discharge, denies pain Ears: deny: decreased hearing Ears, nose, mouth and throat: Denies dental pain, Denies headache, Denies nasal discharge, Denies nose pain Cardiovascular: Denies chest pain, Denies decreased exercise tolerance, Denies edema, Denies high blood pressure, Denies irregular heart beat, Denies pa lpitations, Denies paroxysmal nocturnal dyspnea, Denies rapid heart beat, Denies shortness of breath Respiratory: Denies congestion, Denies cough, Denies cough with sputum, Denies dyspnea, Denies home oxygen, Denies wheezing Gastrointestinal: Denies abdominal pain, Denies change in bowel habits, Denies coffee ground emesis, reports constipation Denies early satiety, Denies excessive gas, Denies heartburn, Denies hematemesis, Denies hematochezia, Denies loss of appetite, Denies nausea, Denies vomiting Genitourinary: Denies dysuria, Denies flank pain, Denies kidney stones, Denies menorrhagia, Denies urgency, Denies urinary frequency Musculoskeletal: endorses gait dysfunction, endorses limitation of motion, endorses pain and swelling lower ext, Denies morning stiffness, Denies muscle cramps Integumentary: Left dorsal foot cellulitis Denies brittle nails, Denies change in hair/nails, Denies darkening of skin Physical exam - Constitutional General appearance: cooperative, no acute distress, obese 76-year-old female, resting in bed and appears to be comfortable and in no acute distress - EENT Eyes: anicteric sclerae, PERRLA, normal appearance ENT: hearing grossly normal - Neck Neck: no lymphadenopathy, normal ROM, no other, no rigidity, no stridor, no thyromegaly - Respiratory Respiratory: bilateral: CTA, negative: diminished, dullness, rales, rhonchi - Cardiovascular Rhythm: regular Heart sounds: normal: S1, S2 Abnormal Heart Sounds: no systolic murmur, no diastolic murmur, no rub, no S3 Gallop, no S4 Gallop, no click, no other - Gastrointestinal General gastrointestinal: normal bowel sounds, soft, mild abdominal tenderness - Integumentary Integumentary: improved swelling involving the dorsal surface of the foot, with mild tenderness, peripheral pulses are 2 + , purplish discoloration of the toes improved , perfusion > 2 sec - Neurologic Neurologic: no sensory or motor deficit - Musculoskeletal Musculoskeletal: , strength equal bilaterally - Psychiatric Psychiatric: A&O x's 3, appropriate affect Assessment and plan Left foot cellulitis abscess ruled out - Unclear etiology - Rule out arterial insufficiency, arterial ultrasoundand report is pending, peripheral pulses intact -Continue vancomycin and Unasyn - Orthopedic consultation Appreciated - Infectious disease consultation appreciated - MRI of the foot negative for abscesses though done without contrast - XRay of the foot was negative for acute fracture per documentation no imaging in the chart present -Pain controlled with morphine 4 mg IV every 4 hours - s/p aspiration on - bloody aspirate Hypertension -Amlodipine 10 mg by mouth daily History of congestive heart failure - Hold spironolactone - Lasix reduced to 40 mg by mouth daily from twice daily Paroxysmal atrial fibrillation currently in sinus rhythm -Patient not on rate control medication - Continue Eliquis 5 mg twice a day Type 2 diabetes - Continue glargine 50 units at bedtime -Insulin aspart 9 units subcu before meals at bedtime Chronic kidney disease Stage III - We will reduce Lasix to 40 mg daily - Calcitriol 0.25 g Friday and Friday Hypothyroidism - Continue levothyroxine 25 g by mouth daily Obstipation. Fleets enema, Senokot S2 tablets daily, MiraLAX 17 g daily added. CODE STATUS full code DVT prophylaxis on Eliquis 5 twice a day DISCHARGE PLAN Home without home care Objective - Vital Signs Vital signs: Vital Signs Temp 98.1 F 09/30/21 13:00 Pulse 78 09/30/21 13:00 Resp 16 09/30/21 13:00 BP 165/76 09/30/21 13:00 Pulse Ox 95 09/30/21 13:00 Intake & Output 09/29/21 09/30/21 09/30/21 18:59 06:59 18:59 Intake Total 600 100 Output Total 2 Balance 598 100 Intake: Intake, IV Titration 100 Amount Ampicillin-Sulbactam 3 gm 100 In Sodium Chloride 0.9% 100 ml @ 200 mls/hr IVPB Q12H [facility] Rx#:[id number] Oral 600 Output: Urine 2 Other: Voiding Method Toilet Toilet Toilet # Voids 3 3 - Labs CBC & Chem 7: 09/30/21 07:28 09/30/21 07:28 Labs: Abnormal Lab Results - Last 24 Hours (Table) 09/29/21 09/29/21 09/30/21 Range/Units 17:35 20:08 07:28 MCHC (32.0-37.0) g/dL Eosinophils # (0.04-0.35) X 10*3/uL BUN 37 H (7-17) mg/dL Creatinine 1.53 H (0.52-1.04) mg/dL Glucose 47 L* (74-99) mg/dL POC Glucose (mg/dL) 121 H 127 H (75-99) mg/dL 09/30/21 09/30/21 09/30/21 Range/Units 07:28 07:33 12:50 MCHC 30.4 L (32.0-37.0) g/dL Eosinophils # 0.45 H (0.04-0.35) X 10*3/uL BUN (7-17) mg/dL Creatinine (0.52-1.04) mg/dL Glucose (74-99) mg/dL POC Glucose (mg/dL) 52 L 147 H (75-99) mg/dL Microbiology - Last 24 Hours (Table) 09/27/21 10:50 Blood Culture - Preliminary Blood No Growth after 72 hours 09/27/21 10:35 Blood Culture - Preliminary Blood No Growth after 72 hours
[2021-09-30 17:44] LABS: Glucose,Whole Blood 161 mg/dL (75-99)
[2021-09-30 20:03] LABS: Glucose,Whole Blood 224 mg/dL (75-99)
--- NOTE | 2021-09-30 21:00 | P.PN ---
Subjective Progress Note Date: 09/30/21 Principal diagnosis: Left foot cellulitis Patient is a 76-year-old female presenting to the hospital with left foot pain swelling and redness this patient has been diagnosed with a left foot cellulitis and was consulted for possible abscess. Pt is s/p aspirate of the ri ght foot this am by ortho On today's evaluation that is 09/30/2021, the patient is afebrile, the patient left foot pain swelling redness has decreased in intensity and the patient is able to walk without significant pain, patient denies any drainage no chest pain shortness of breath or cough no abdominal pain and no diarrhea Objective - Vital Signs Vital signs: Vital Signs Temp 98.1 F 09/30/21 13:00 Pulse 78 09/30/21 13:00 Resp 16 09/30/21 13:00 BP 165/76 09/30/21 13:00 Pulse Ox 95 09/30/21 13:00 Intake & Output 09/30/21 09/30/21 10/01/21 06:59 18:59 06:59 Intake Total 100 360 Balance 100 360 Intake: Intake, IV Titration 100 Amount Ampicillin-Sulbactam 3 gm 100 In Sodium Chloride 0.9% 100 ml @ 200 mls/hr IVPB Q12H [facility] Rx#:[id number] Oral 360 Other: Voiding Method Toilet Toilet # Voids 3 4 # Bowel Movements 1 - Exam GENERAL DESCRIPTION:[ Patient is awake and alert in no distress] HEENT: [Oral mucosa is dry and no pharyngeal erythema] RESPIRATORY SYSTEM: [Unlabored breathing clear to auscultation] CARDIA VASCULAR SYSTEM: [S1-S2 regular rate and rhythm no murmur] GI: [Abdominal soft there's no tenderness no organomegaly] EXTREMITIES: [Left foot swelling and redness has slightly decreased not as tender to touch however there is a small fluctuant area on the dorsum aspect] - Labs CBC & Chem 7: 09/30/21 07:28 09/30/21 07:28 Labs: Abnormal Lab Results - Last 24 Hours (Table) 09/30/21 09/30/21 09/30/21 Range/Units 07:28 07:28 07:33 MCHC 30.4 L (32.0-37.0) g/dL Eosinophils # 0.45 H (0.04-0.35) X 10*3/uL BUN 37 H (7-17) mg/dL Creatinine 1.53 H (0.52-1.04) mg/dL Glucose 47 L* (74-99) mg/dL POC Glucose (mg/dL) 52 L (75-99) mg/dL 09/30/21 09/30/21 09/30/21 Range/Units 12:50 17:43 20:02 MCHC (32.0-37.0) g/dL Eosinophils # (0.04-0.35) X 10*3/uL BUN (7-17) mg/dL Creatinine (0.52-1.04) mg/dL Glucose (74-99) mg/dL POC Glucose (mg/dL) 147 H 161 H 224 H (75-99) mg/dL Microbiology - Last 24 Hours (Table) 09/30/21 11:00 Anaerobic Culture - Preliminary Foot - Left 09/30/21 11:00 Wound Culture - Preliminary Foot - Left 09/27/21 10:50 Blood Culture - Preliminary Blood No Growth after 72 hours 09/27/21 10:35 Blood Culture - Preliminary Blood No Growth after 72 hours Assessment and Plan (1) Cellulitis of left foot Current Visit: Yes Status: Acute Code(s): L03.116 - CELLULITIS OF LEFT LOWER LIMB SNOMED Code(s): 657759278 Plan: 1-patient with her left foot cellulitis in this patient seemed to have show some clinical improvement, the redness however small area of fluctuance on the dorsum aspect s/p aspirate and culture patient continue with Unasyn while waiting for cultures to finalize Time with Patient: Less than 30
[2021-09-30] MEDS: ATORVASTATIN 20 MG TAB PO SCH (21:53)
[2021-09-30] MEDS: FLUTICASONE 50MCG/SPRAY NASAL 16GM EA NOSTRIL SCH (21:57)
[2021-09-30] MEDS: LATANOPROST 0.005% OPHTH DROPS 2.5 ML BTL BOTH EYES SCH (21:57)
[2021-09-30] MEDS: HYDROCORTISONE 1% CREAM 454 GM JAR TOPICAL SCH (21:57)
[2021-09-30] MEDS: INSULIN DETEMIR (LEVEMIR) 100 UNIT/ML SYR SQ SCH (21:59)
[2021-10-01] MEDS: AMPICILLIN-SULBACTAM 3 GM in SODIUM CHLORIDE 0.9% 100 ML IVPB SCH ×2 (05:29→18:06)
[2021-10-01] MEDS: LEVOTHYROXINE 25 MCG TAB PO SCH (05:29)
[2021-10-01 07:26] LABS: Glucose,Whole Blood 129 mg/dL (75-99)
[2021-10-01] MEDS: ALBUTEROL NEBULIZED 2.5 MG/3 ML INHALATION PRN ×3 (07:45→19:30)
[2021-10-01] MEDS: BUDESONIDE 0.5 MG/2 ML NEBU INHALATION SCH ×2 (07:45→19:30)
[2021-10-01] MEDS: MONTELUKAST 10 MG TAB PO SCH (08:39)
[2021-10-01] MEDS: amLODIPine 10 MG TAB PO SCH (08:39)
[2021-10-01] MEDS: ASCORBIC ACID 500 MG TAB PO SCH (08:39)
[2021-10-01] MEDS: polyethylene glycoL 3350 17 GM POWD.PACK PO SCH (08:39)
[2021-10-01] MEDS: APIXABAN 5 MG TAB PO SCH ×2 (08:40→20:28)
[2021-10-01] MEDS: FUROSEMIDE 40 MG TAB PO SCH (08:40)
[2021-10-01] MEDS: allopurinoL 300 MG TAB PO SCH (08:40)
[2021-10-01] MEDS: SENNOSIDES-DOCUSATE SODIUM 1 EACH TAB PO SCH (08:40)
[2021-10-01] MEDS: INSULIN ASPART (NovoLOG) 100 UNIT/ML VIAL SQ SCH ×5 (08:46→20:31)
[2021-10-01] MEDS: ASPIRIN 81 MG PO SCH (08:46)
[2021-10-01] MEDS: HYDROCORTISONE 1% CREAM 454 GM JAR TOPICAL SCH ×3 (08:47→20:30)
[2021-10-01 11:33] LABS: Glucose,Whole Blood 122 mg/dL (75-99)
--- NOTE | 2021-10-01 11:34 | P.PN ---
Subjective Progress Note Date: 10/01/21 Patient is examined bedside this morning. Her left foot continues to improve on IV antibiotics. The area of induration of the dorsal left foot was aspirated yesterday, with only a very small amount of bloody fluid expressed, which was sent for culture. Cultures are currently negative at 24 hours. Patient is feeling very well today and also believe that her foot is improving. She denies fevers or chills. Objective - Vital Signs Vital signs: Vital Signs Temp 97.7 F 10/01/21 04:54 Pulse 69 10/01/21 07:57 Resp 16 09/30/21 21:00 BP 188/77 10/01/21 04:54 Pulse Ox 96 10/01/21 07:46 Intake & Output 09/30/21 10/01/21 10/01/21 18:59 06:59 18:59 Intake Total 360 640 Balance 360 640 Intake: Intake, IV Titration 100 Amount Ampicillin-Sulbactam 3 gm 100 In Sodium Chloride 0.9% 100 ml @ 200 mls/hr IVPB Q12H [facility] Rx#:[id number] Oral 360 540 Other: Voiding Method Toilet # Voids 4 2 # Bowel Movements 1 - Exam On examination, the patient is sitting up in bed in no apparent distress. She is alert and oriented 3. On inspection of the left foot, there is a resolving erythema of the dorsal foot with a very small area of induration, which also appears improved today. No fluctuance noted. No warmth to palpation of the dorsal foot. Painless PROM of the toes and ankle. Foot is warm and well perfu sed. Calf is non-tender. - Labs CBC & Chem 7: 09/30/21 07:28 09/30/21 07:28 Labs: Abnormal Lab Results - Last 24 Hours (Table) 09/30/21 09/30/21 09/30/21 Range/Units 12:50 17:43 20:02 POC Glucose (mg/dL) 147 H 161 H 224 H (75-99) mg/dL 10/01/21 Range/Units 07:24 POC Glucose (mg/dL) 129 H (75-99) mg/dL Microbiology - Last 24 Hours (Table) 09/30/21 11:00 Gram Stain - Preliminary Foot - Left Wound Culture - Preliminary 09/30/21 11:00 Anaerobic Culture - Preliminary Foot - Left 09/27/21 10:50 Blood Culture - Preliminary Blood No Growth after 72 hours 09/27/21 10:35 Blood Culture - Preliminary Blood No Growth after 72 hours Assessment and Plan Assessment: Left foot cellulitis, improving on IV antibiotics Plan: - We have no plans for surgical intervention at this time. Patient continues to improve daily on IV antibiotics. The very small amount of bloody fluid asp iration from the dorsal foot yesterday was sent for culture, and is currently negative at 24 hours. - Antibiotics per infectious disease. - We will continue to monitor patient closely and make recommendations as needed.
--- NOTE | 2021-10-01 13:38 | P.PN ---
Subjective Progress Note Date: 10/01/21 HPI 76-year-old female with past medical history of congestive heart failure, type 2 diabetes, hyperlipidemia, hypertension, atrial fibrillation, type 2 diabetes, hypothyroidism, hyperlipidemia diagnosed 1 year ago comes in with worsening swelling involving the left lower extremity for the past 2 weeks. Patient denies any fall or recent trauma to the left foot. She's noticed a swelling including purplish discoloration of all her toes 2 weeks back, the toes color have improved. Patient was seen by Dr. Rick last week. X-rays of the foot was done twice but no acute fracture or acute abnormality noted. Patient is afebrile pulse 80 respiratory rate 18 blood pressure 158/64 oxygen saturation 96% room air. Labs are reviewed, WBC 8.3 hemoglobin 15.1 sodium 136 BUN 52 creatinine 1.67 glucose 187 CRP 1.1 liver enzymes are normal. COVID negative. Patient initiated on Vanco and Zosyn for possible abscess. Orthopedics plans to do I and D for the patient. 09/28: Patient has been seen by Dr. Munson. Recommend continuing vancomycin and change Zosyn to Unasyn. MRI of the left foot has been ordered. Arterial ultrasound of the lower extremities has been obtained and report is pending. 1.8. Capillary blood glucose running between 86 and 145. Sed rate 22. Blood cultures are in progress. A is complaining of constipation and has not had a bowel movement for 1 week. Fleets enema ordered for now as well as Senokot-S 2 tablets daily and MiraLAX 17 g daily added. Left foot has significantly less tenderness today. Erythema is mildly improved. Echocardiogram reveals EF of 55-60% with moderate concentric left ventricular hypertrophy Abdominal x-ray reveals overall nonobstructive bowel gas pattern. 09/29 patient is examined at bedside. Continues to have mild inflammation involving the dorsal aspect with mild bulging in the midfoot suggestive of underlying inflammation. MRI foot was negative for any acute abscess. 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 Continue IV antibiotics with Unasyn and vancomycin. The patient is possible discharge tomorrow once cleared by ID. Patient is afebrile and WBC count normal. ESR CRP ordered today. 09/30 patient examined at bedside. She has mild inflammation involving the dorsal aspect of the feet. Pain is better controlled. Patient underwent aspiration under sterile conditions by orthopedics. Half mL of bloody fluid was aspirated sent for culture. No purulent drainage was noted. Wound cultures pending. Continue IV antibiotics with plan to discharge once culture finalizes 10/01: Blood culture showing no growth at 72 hours. Wound cultures are in progress. Patient has been afebrile, heart rate 68, blood pressure 188/77, pulse ox 96 percent on room air. Patient is utilizing CPAP at night. CBG 129- 224. A1C ordered. Patient is followed by Dr. Munson and continued on Unasyn. Dr. Munson would like to hold discharge until wound cultures are finalized. Patient has significantly less erythema and less pain and tenderness. Anticipate probable discharge home tomorrow ROS Constitutional: Denies chills, Denies fever, Denies lethargy, Denies malaise, Denies poor appetite, Denies weakness, Denies weight loss Eyes: denies decreased vision, denies diplopia, denies discharge, denies pain Ears: deny: decreased hearing Ears, nose, mouth and throat: Denies dental pain, Denies headache, Denies nasal discharge, Denies nose pain Cardiovascular: Denies chest pain, Denies decreased exercise tolerance, Denies edema, Denies high blood pressure, Denies irregular heart beat, Denies palp itations, Denies paroxysmal nocturnal dyspnea, Denies rapid heart beat, Denies shortness of breath Respiratory: Denies congestion, Denies cough, Denies cough with sputum, Denies dyspnea, Denies home oxygen, Denies wheezing Gastrointestinal: Denies abdominal pain, Denies change in bowel habits, Denies coffee ground emesis, reports constipation Denies early satiety, Denies excessive gas, Denies heartburn, Denies hematemesis, Denies hematochezia, Denies loss of appetite, Denies nausea, Denies vomiting Genitourinary: Denies dysuria, Denies flank pain, Denies kidney stones, Denies menorrhagia, Denies urgency, Denies urinary frequency Musculoskeletal: endorses gait dysfunction, endorses limitation of motion, endorses pain and swelling lower ext, Denies morning stiffness, Denies muscle cramps Integumentary: Left dorsal foot cellulitis Denies brittle nails, Denies change in hair/nails, Denies darkening of skin Physical exam - Constitutional General appearance: cooperative, no acute distress, obese 76-year-old female, resting in bed and appears to be comfortable and in no acute distress - EENT Eyes: anicteric sclerae, PERRLA, normal appearance ENT: hearing grossly normal - Neck Neck: no lymphadenopathy, normal ROM, no other, no rigidity, no stridor, no thyromegaly - Respiratory Respiratory: bilateral: CTA, negative: diminished, dullness, rales, rhonchi - Cardiovascular Rhythm: regular Heart sounds: normal: S1, S2 Abnormal Heart Sounds: no systolic murmur, no diastolic murmur, no rub, no S3 Gallop, no S4 Gallop, no click, no other - Gastrointestinal General gastrointestinal: normal bowel sounds, soft, mild abdominal tenderness - Integumentary Integumentary: improved swelling involving the dorsal surface of the foot, with mild tenderness, peripheral pulses are 2 + , purplish discoloration of the toes improved , perfusion > 2 sec - Neurologic Neurologic: no sensory or motor deficit - Musculoskeletal Musculoskeletal: , strength equal bilaterally - Psychiatric Psychiatric: A&O x's 3, appropriate affect Assessment and plan Left foot cellulitis abscess ruled out - Unclear etiology - Rule out arterial insufficiency, arterial ultrasoundand report is pending, peripheral pulses intact - Continue Unasyn - Orthopedic consultation Appreciated - Infectious disease consultation appreciated - MRI of the foot negative for abscesses though done without contrast - XRay of the foot was negative for acute fracture per documentation no imaging in the chart present -Pain controlled with morphine 4 mg IV every 4 hours - s/p aspiration on - bloody aspirate - Waiting for wound culture to be finalized Hypertension -Amlodipine 10 mg by mouth daily History of congestive heart failure - Hold spironolactone - Lasix reduced to 40 mg by mouth daily from twice daily Paroxysmal atrial fibrillation currently in sinus rhythm -Patient not on rate control medication - Continue Eliquis 5 mg twice a day Type 2 diabetes - Continue glargine 50 units at bedtime -Insulin aspart 9 units subcu before meals at bedtime Chronic kidney disease Stage III - We will reduce Lasix to 40 mg daily - Calcitriol 0.25 g Friday and Friday Hypothyroidism - Continue levothyroxine 25 g by mouth daily Obstipation. Fleets enema, Senokot S2 tablets daily, MiraLAX 17 g daily added. CODE STATUS full code DVT prophylaxis on Eliquis 5 twice a day DISCHARGE PLAN Home with [facility] on [address] Impression and plan of care have been directed as dictated by the signing physician. Emi Salinas nurse practitioner acting as scribe for signing physician. Objective - Vital Signs Vital signs: Vital Signs Temp 97.7 F 10/01/21 04:54 Pulse 69 10/01/21 07:57 Resp 16 09/30/21 21:00 BP 188/77 10/01/21 04:54 Pulse Ox 96 10/01/21 07:46 Intake & Output 09/30/21 10/01/21 10/01/21 18:59 06:59 18:59 Intake Total 360 640 Balance 360 640 Intake: Intake, IV Titration 100 Amount Ampicillin-Sulbactam 3 gm 100 In Sodium Chloride 0.9% 100 ml @ 200 mls/hr IVPB Q12H [facility] Rx#:[id number] Oral 360 540 Other: Voiding Method Toilet # Voids 4 2 # Bowel Movements 1 - Labs CBC & Chem 7: 09/30/21 07:28 09/30/21 07:28 Labs: Abnormal Lab Results - Last 24 Hours (Table) 09/30/21 09/30/21 09/30/21 Range/Units 07:28 07:28 12:50 MCHC 30.4 L (32.0-37.0) g/dL Eosinophils # 0.45 H (0.04-0.35) X 10*3/uL BUN 37 H (7-17) mg/dL Creatinine 1.53 H (0.52-1.04) mg/dL Glucose 47 L* (74-99) mg/dL POC Glucose (mg/dL) 147 H (75-99) mg/dL 09/30/21 09/30/21 10/01/21 Range/Units 17:43 20:02 07:24 MCHC (32.0-37.0) g/dL Eosinophils # (0.04-0.35) X 10*3/uL BUN (7-17) mg/dL Creatinine (0.52-1.04) mg/dL Glucose (74-99) mg/dL POC Glucose (mg/dL) 161 H 224 H 129 H (75-99) mg/dL Microbiology - Last 24 Hours (Table) 09/30/21 11:00 Gram Stain - Preliminary Foot - Left Wound Culture - Preliminary 09/30/21 11:00 Anaerobic Culture - Preliminary Foot - Left 09/27/21 10:50 Blood Culture - Preliminary Blood No Growth after 72 hours 09/27/21 10:35 Blood Culture - Preliminary Blood No Growth after 72 hours
--- NOTE | 2021-10-01 14:37 | CDI ---
Documentation Clarification Form Date: 10/01/2021 02:27:58 PM From: Anabel Jaramillo CCS, CCDS Admit Date: 09/27/2021 10:27:00 AM Patient Name: Óscar Valadez Visit Number: [id number] Discharge Date: ATTENTION: The Clinical Documentation Specialists (CDI) and [facility] Coding Staff appreciate your assistance in clarifying documentation. Please respond to the clarification below the line at the bottom and electronically sign. The CDI & [facility] Coding staff will review the response and follow-up if needed. Please note: Queries are made part of the Legal Health Record. If you have any questions, please contact the author of this message via ITS. Dr. Dimas Crane: Per the 09/27 (History & Physical)/Medical Consult: History of Congestive Heart Failure is documented without further specificity. Additional information regarding the Type & Acuity of CHF is requested. History/Risk Factors per the 09/27 Medical Consult: Hypertension, History of CHF, History of Atrial Fibrillation, DM II, CKD III, Hypothyroidism. Clinical Indicators: Presented to the ED on 09/27 complaining of left foot infection, pain x2 weeks, sent to ED from Orthopedic office for infection. Admit with Cellulitis of the left Foot, Left Foot Abscess. 09/27 VS: T 97.7, P 80, R 18, BP 158/64, PO 96 RA, BMI: 48.5 09/27 LAB: Na 136, BUN 52, Creatinine 1.65, Glucose 187, CRP 1.1 BNP not done No CXR 09/27 ECHO: Left ventricular size is normal. Moderate concentric LVH, Left ventricular systolic wnl w/EF 55-60%, No pericardial effusion. Treatment 09/27: Accu checks, Blood cultures, O2, I Zosyn, I Morphine 4 mg q4H/prn, IV Vancomycin x1, INH Ventolin QID, INH Atrovent QID, po Lasix 40 mg BID (home dose) Cardiology was not consulted. In your professional opinion, can you please clarify the acuity and type of CHF if known? [ x ] Chronic Diastolic Heart Failure [ ] Acute on Chronic Diastolic Heart Failure [ ] Other, please specify [ ] Unable to determine (Template Last Revised: October 2020) MTDD
[2021-10-01 17:24] LABS: Glucose,Whole Blood 144 mg/dL (75-99)
[2021-10-01 19:39] LABS: Glucose,Whole Blood 161 mg/dL (75-99)
[2021-10-01] MEDS: ATORVASTATIN 20 MG TAB PO SCH (20:28)
[2021-10-01] MEDS: INSULIN DETEMIR (LEVEMIR) 100 UNIT/ML SYR SQ SCH (20:28)
[2021-10-01] MEDS: FLUTICASONE 50MCG/SPRAY NASAL 16GM EA NOSTRIL SCH (20:29)
[2021-10-01] MEDS: LATANOPROST 0.005% OPHTH DROPS 2.5 ML BTL BOTH EYES SCH (20:29)
--- NOTE | 2021-10-01 23:14 | P.PN ---
Subjective Progress Note Date: 10/01/21 Principal diagnosis: Left foot cellulitis Patient is a 76-year-old female presenting to the hospital with left foot pain swelling and redness this patient has been diagnosed with a left foot cellulitis and was consulted for possible abscess. Pt is s/p aspirate of the ri ght foot this am by ortho On today's evaluation that is 10/01/2021, the patient remains to be afebrile, the patient left foot pain swelling redness has decreased in intensity, patient denies any drainage no chest pain shortness of breath or cough no abdominal pain and no diarrhea with antibiotic therapy Objective - Vital Signs Vital signs: Vital Signs Temp 98.3 F 10/01/21 20: Pulse 84 10/01/21 20:22 Resp 18 10/01/21 20:22 BP 156/93 10/01/21 20:22 Pulse Ox 93 L 10/01/21 20:22 Intake & Output 10/01/21 10/01/21 10/02/21 06:59 18:59 06:59 Intake Total 640 Balance 640 Intake: Intake, IV Titration 100 Amount Ampicillin-Sulbactam 3 gm 100 In Sodium Chloride 0.9% 100 ml @ 200 mls/hr IVPB Q12H [facility] Rx#:[id number] Oral 540 Other: Voiding Method Toilet # Voids 2 4 - Exam GENERAL DESCRIPTION:[ Patient is awake and alert in no distress] HEENT: [Oral mucosa is dry and no pharyngeal erythema] RESPIRATORY SYSTEM: [Unlabored breathing clear to auscultation] CARDIA VASCULAR SYSTEM: [S1-S2 regular rate and rhythm no murmur] GI: [Abdominal soft there's no tenderness no organomegaly] EXTREMITIES: [Left foot swelling and redness has slightly decreased ] - Labs CBC & Chem 7: 09/30/21 07:28 09/30/21 07:28 Labs: Abnormal Lab Results - Last 24 Hours (Table) 09/30/21 10/01/21 10/01/21 Range/Units 07:28 07:24 11:26 POC Glucose (mg/dL) 129 H 122 H (75-99) mg/dL Hemoglobin A1c 8.0 H (0.0-6.0) % 10/01/21 10/01/21 Range/Units 17:22 19:38 POC Glucose (mg/dL) 144 H 161 H (75-99) mg/dL Hemoglobin A1c (0.0-6.0) % Microbiology - Last 24 Hours (Table) 09/27/21 10:50 Blood Culture - Preliminary Blood No Growth after 96 hours 09/27/21 10:35 Blood Culture - Preliminary Blood No Growth after 96 hours 09/30/21 11:00 Gram Stain - Preliminary Foot - Left Wound Culture - Preliminary Assessment and Plan (1) Cellulitis of left foot Current Visit: Yes Status: Acute Code(s): L03.116 - CELLULITIS OF LEFT LOWER LIMB SNOMED Code(s): 031224175 Plan: 1-patient with left foot cellulitis and small area of fluctuance status post aspirate, in this patient seemed to have show some clinical improvement, culture are currently pending, patient to continue with Unasyn while waiting for cultures to finalize . To determine her discharge antibiotics Time with Patient: Less than 30
[2021-10-02] MEDS: LEVOTHYROXINE 25 MCG TAB PO SCH (05:56)
[2021-10-02] MEDS: AMPICILLIN-SULBACTAM 3 GM in SODIUM CHLORIDE 0.9% 100 ML IVPB SCH (05:56)
[2021-10-02 07:11] LABS: Glucose,Whole Blood 118 mg/dL (75-99)
[2021-10-02] MEDS: ALBUTEROL NEBULIZED 2.5 MG/3 ML INHALATION PRN (07:59)
[2021-10-02] MEDS: BUDESONIDE 0.5 MG/2 ML NEBU INHALATION SCH (08:00)
--- NOTE | 2021-10-02 09:40 | P.PN ---
Subjective Progress Note Date: 10/02/21 Patient is examined bedside this morning. Her left foot continues to improve on IV antibiotics. Cultures from aspiration obtained 09/30/21 from dorsal left foot currently negative. Patient states she is doing very well. She is having no pain in the left foot. She denies fevers, chills, nausea, vomiting. Objective - Vital Signs Vital signs: Vital Signs Temp 97.9 F 10/02/21 08:16 Pulse 76 10/02/21 08:16 Resp 16 10/02/21 08:16 BP 93/55 10/02/21 08:16 Pulse Ox 92 L 10/02/21 08:16 Intake & Output 10/01/21 10/02/21 10/02/21 18:59 06:59 18:59 Intake Total 540 Balance 540 Intake: Oral 540 Other: Voiding Method Toilet # Voids 4 2 - Exam On examination, the patient is sitting up in bed in no apparent distress. She is alert and oriented 3. On inspection of the left foot, there is a resolving erythema of the dorsal foot with only a very small area of induration, which continues to improve. No fluctuance. No warmth to palpation of the dorsal foot. Painless PROM of the toes and ankle. Foot is warm and well perfused. Calf is non-tender. - Labs CBC & Chem 7: 09/30/21 07:28 09/30/21 07:28 Labs: Abnormal Lab Results - Last 24 Hours (Table) 09/30/21 10/01/21 10/01/21 Range/Units 07:28 11:26 17:22 POC Glucose (mg/dL) 122 H 144 H (75-99) mg/dL Hemoglobin A1c 8.0 H (0.0-6.0) % 10/01/21 10/02/21 Range/Units 19:38 07:08 POC Glucose (mg/dL) 161 H 118 H (75-99) mg/dL Hemoglobin A1c (0.0-6.0) % Microbiology - Last 24 Hours (Table) 09/27/21 10:50 Blood Culture - Preliminary Blood No Growth after 96 hours 09/27/21 10:35 Blood Culture - Preliminary Blood No Growth after 96 hours 09/30/21 11:00 Gram Stain - Preliminary Foot - Left Wound Culture - Preliminary Assessment and Plan Assessment: Left foot cellulitis, improving on IV antibiotics Plan: - We have no plans for surgical intervention at this time. Patient continues to improve daily on IV antibiotics. - Antibiotics per infectious disease. - We will sign off at this time.
[2021-10-02] MEDS: allopurinoL 300 MG TAB PO SCH (10:08)
[2021-10-02] MEDS: polyethylene glycoL 3350 17 GM POWD.PACK PO SCH (10:08)
[2021-10-02] MEDS: amLODIPine 10 MG TAB PO SCH (10:11)
[2021-10-02] MEDS: FUROSEMIDE 40 MG TAB PO SCH (10:11)
[2021-10-02] MEDS: ASCORBIC ACID 500 MG TAB PO SCH (10:11)
[2021-10-02] MEDS: APIXABAN 5 MG TAB PO SCH (10:11)
[2021-10-02] MEDS: MONTELUKAST 10 MG TAB PO SCH (10:11)
[2021-10-02] MEDS: SENNOSIDES-DOCUSATE SODIUM 1 EACH TAB PO SCH (10:12)
[2021-10-02 11:29] LABS: Glucose,Whole Blood 176 mg/dL (75-99)
[2021-10-02] MEDS: HYDROCORTISONE 1% CREAM 454 GM JAR TOPICAL SCH (12:32)
--- NOTE | 2021-10-02 12:39 | P.DS ---
Providers Date of admission: 09/27/21 10:27 Expected date of discharge: 10/02/21 Attending physician: Dimas Crane MD Consults: 09/27/21 10:28 Consult Physician Urgent Consulting Provider: Kwasi Rick Consult Reason/Comments: left foot infection Do you want consulting provider notified?: Yes Consult Physician Urgent Consulting Provider: Jonnie Munson Consult Reason/Comments: left foot cellulitis Do you want consulting provider notified?: Yes Primary care physician: Orion Solorio [facility] Course: HPI 76-year-old female with past medical history of congestive heart failure, type 2 diabetes, hyperlipidemia, hypertension, atrial fibrillation, type 2 diabetes, hypothyroidism, hyperlipidemia diagnosed 1 year ago comes in with worsening swelling involving the left lower extremity for the past 2 weeks. Patient denies any fall or recent trauma to the left foot. She's noticed a swelling including purplish discoloration of all her toes 2 weeks back, the toes color have improved. Patient was seen by Dr. Rick last week. X-rays of the foot was done twice but no acute fracture or acute abnormality noted. Patient is afebrile pulse 80 respiratory rate 18 blood pressure 158/64 oxygen saturation 96% room air. Labs are reviewed, WBC 8.3 hemoglobin 15.1 sodium 136 BUN 52 creatinine 1.67 glucose 187 CRP 1.1 liver enzymes are normal. COVID negative. Patient initiated on Vanco and Zosyn for possible abscess. Orthopedics plans to do I and D for the patient. 09/28: Patient has been seen by Dr. Munson. Recommend continuing vancomycin and change Zosyn to Unasyn. MRI of the left foot has been ordered. Arterial ultrasound of the lower extremities has been obtained and report is pending. 1.8. Capillary blood glucose running between 86 and 145. Sed rate 22. Blood cultures are in progress. A is complaining of constipation and has not had a bowel movement for 1 week. Fleets enema ordered for now as well as Senokot-S 2 tablets daily and MiraLAX 17 g daily added. Left foot has significantly less tenderness today. Erythema is mildly improved. Echocardiogram reveals EF of 55-60% with moderate concentric left ventricular hypertrophy Abdominal x-ray reveals overall nonobstructive bowel gas pattern. 09/29 patient is examined at bedside. Continues to have mild inflammation involving the dorsal aspect with mild bulging in the midfoot suggestive of underlying inflammation. MRI foot was negative for any acute abscess. 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 Continue IV antibiotics with Unasyn and vancomycin. The patient is possible discharge tomorrow once cleared by ID. Patient is afebrile and WBC count normal. ESR CRP ordered today. 09/30 patient examined at bedside. She has mild inflammation involving the dorsal aspect of the feet. Pain is better controlled. Patient underwent aspiration under sterile conditions by orthopedics. Half mL of bloody fluid was aspirated sent for culture. No purulent drainage was noted. Wound cultures pending. Continue IV antibiotics with plan to discharge once culture finalizes 10/01: Blood culture showing no growth at 72 hours. Wound cultures are in progress. Patient has been afebrile, heart rate 68, blood pressure 188/77, pulse ox 96 percent on room air. Patient is utilizing CPAP at night. CBG 129- 224. A1C ordered. Patient is followed by Dr. Munson and continued on Unasyn. Dr. Munson would like to hold discharge until wound cultures are finalized. Patient has significantly less erythema and less pain and tenderness. Anticipate pro bable discharge home tomorrow 10/02: Patient continues to have improvement of her wound to the left foot with decreased redness and decreased swelling. Pain is significantly improved. She's been afebrile. Dr. Munson has recommended Augmentin for a seven-day course. Wound culture is no growth at 48 hours. Blood cultures no growth. Patient will be discharged home today in stable condition. DISCHARGE DIAGNOSES Left foot cellulitis abscess ruled out Hypertension History of congestive heart failure Paroxysmal atrial fibrillation currently in sinus rhythm Type 2 diabetes Chronic kidney disease Stage III Hypothyroidism Obstipation. DISCHARGE PLAN Home with [facility] Greater than 35 minutes was utilized and coordinating patient's discharge. Impression and plan of care have been directed as dictated by the signing physician. Emi Salinas nurse practitioner acting as scribe for signing physician. Patient Condition at Discharge: Fair Plan - Discharge Summary Discharge Rx Participant: No New Discharge Prescriptions: New Amoxic-Pot Clav 500-125 mg [Augmentin 500-125 mg] 1 tab PO BID #14 tab polyethylene glycoL 3350 [Miralax] 17 gm PO DAILY packet Sennosides-Docusate Sodium [Senokot-S] 2 each PO DAILY tab Continue [place]-3 Fatty Acids/Fish Oil [Fish Oil 1,000 mg Softgel] 1 cap PO BID Simvastatin [Zocor] 40 mg PO HS Aspirin EC [Ecotrin Low Dose] 81 mg PO MOWEFR Levothyroxine Sodium [Synthroid] 25 mcg PO DAILY allopurinoL [Zyloprim] 150 mg PO DAILY INSULIN ASPART (NovoLOG) [NovoLOG (formulary)] 9 unit SQ ACHS Furosemide [Lasix] 40 mg PO BID Insulin Glargine [Lantus Vial] 50 unit SQ HS calcitrioL [Rocaltrol] 0.25 mcg PO MOWEFR Albuterol Nebulized [Ventolin Nebulized] 2.5 mg INHALATION RT-QID PRN PRN Reason: Shortness Of Breath Spironolactone 50 mg PO DAILY Latanoprost [Xalatan 0.005%] 1 drop BOTH EYES HS Fluticasone Nasal Shanks [Flonase Nasal Shanks] 2 spray EA NOSTRIL DAILY Ipratropium Nebulized [Atrovent Nebulized 0.2 MG/ML] 0.5 mg INHALATION RT-QID PRN PRN Reason: Shortness Of Breath Ascorbic Acid [Vitamin C] 500 mg PO DAILY Garlic 1 tab PO DAILY Calc/Magne/Zinc/D 1 tab PO HS Budesonide [Pulmicort] 0.5 mg INHALATION RT-BID Apixaban [Eliquis] 5 mg PO BID Turmeric Root Extract [Turmeric] 500 mg PO DAILY amLODIPine [Norvasc] 10 mg PO DAILY Montelukast [Singulair] 10 mg PO DAILY Discharge Medication List Albuterol Nebulized [Ventolin Nebulized] 2.5 mg INHALATION RT-QID PRN 05/21/17 [History] Aspirin EC [Ecotrin Low Dose] 81 mg PO MOWEFR 05/21/17 [History] Furosemide [Lasix] 40 mg PO BID 05/21/17 [History] INSULIN ASPART (NovoLOG) [NovoLOG (formulary)] 9 unit SQ ACHS 05/21/17 [History] Insulin Glargine [Lantus Vial] 50 unit SQ HS 05/21/17 [History] Levothyroxine Sodium [Synthroid] 25 mcg PO DAILY 05/21/17 [History] [place]-3 Fatty Acids/Fish Oil [Fish Oil 1,000 mg Softgel] 1 cap PO BID 05/21/17 [History] Simvastatin [Zocor] 40 mg PO HS 05/21/17 [History] allopurinoL [Zyloprim] 150 mg PO DAILY 05/21/17 [History] calcitrioL [Rocaltrol] 0.25 mcg PO MOWEFR 05/21/17 [History] Apixaban [Eliquis] 5 mg PO BID 09/27/21 [History] Ascorbic Acid [Vitamin C] 500 mg PO DAILY 09/27/21 [History] Budesonide [Pulmicort] 0.5 mg INHALATION RT-BID 09/27/21 [History] Calc/Magne/Zinc/D 1 tab PO HS 09/27/21 [History] Fluticasone Nasal Shanks [Flonase Nasal Shanks] 2 spray EA NOSTRIL DAILY 09/27/21 [History] Garlic 1 tab PO DAILY 09/27/21 [History] Ipratropium Nebulized [Atrovent Nebulized 0.2 MG/ML] 0.5 mg INHALATION RT-QID PRN 09/27/21 [History] Latanoprost [Xalatan 0.005%] 1 drop BOTH EYES HS 09/27/21 [History] Montelukast [Singulair] 10 mg PO DAILY 09/27/21 [History] Spironolactone 50 mg PO DAILY 09/27/21 [History] Turmeric Root Extract [Turmeric] 500 mg PO DAILY 09/27/21 [History] amLODIPine [Norvasc] 10 mg PO DAILY 09/27/21 [History] Amoxic-Pot Clav 500-125 mg [Augmentin 500-125 mg] 1 tab PO BID #14 tab 10/02/21 [Rx] Sennosides-Docusate Sodium [Senokot-S] 2 each PO DAILY tab 10/02/21 [Rx] polyethylene glycoL 3350 [Miralax] 17 gm PO DAILY packet 10/02/21 [Rx] Follow up Appointment(s)/Referral(s): Orion Benjamin MD [Primary Care Provider] - 10/11/21 2:00 pm Jonnie Munson MD [STAFF PHYSICIAN] - 10/09/21 2:00 pm Kwasi Rick MD [Medical Doctor] - As Needed Patient Instructions/Handouts: Amoxicillin/Clavulanate Potassium (By mouth), Cellulitis (DC), Abscess (GEN) Activity/Diet/Wound Care/Special Instructions: PATIENT WOULD LIKE INFLUENZA VACCINE PRIOR TO DISCHARGE. Discharge Disposition: HOME SELF-CARE
[2021-10-02 12:46] VITALS: BP 151/67; PULSE 94; RESP 18; TEMP 97.8
--- NOTE | 2021-10-03 10:30 | P.ARTDOP ---
Arterial Doppler LOWER EXTREMITY ARTERIAL DOPPLER: DATE OF SERVICE: 09/27/2021 Reason for study: Purple discoloration left foot. Doppler waveforms: Multiphasic bilaterally throughout with normal tone waveforms. Pulse volume recording: []. Pressure gradients: None. Ankle-brachial indices: Greater than 1 bilaterally. Toe brachial indices: Greater than 1 on the right, 0.86 on the left Impression: Normal study.
--- NOTE | 2021-10-05 07:13 | CDI ---
Documentation Clarification Form Date: 10/05/2021 07:00:31 AM From: Anabel Jaramillo CCS, CCDS Admit Date: 09/27/2021 10:27:00 AM Patient Name: Óscar Valadez Visit Number: [id number] Discharge Date: 10/02/2021 02:01:00 PM ATTENTION: The Clinical Documentation Specialists (CDI) and [facility] Coding Staff appreciate your assistance in clarifying documentation. Please respond to the clarification below the line at the bottom and electronically sign. The CDI & [facility] Coding staff will review the response and follow-up if needed. Please note: Queries are made part of the Legal Health Record. If you have any questions, please contact the author of this message via ITS. Dr. Dimas Crane: Diabetes Type 2 is documented throughout the record in the patient's history including in the 10/02 Discharge Summary and patient is noted to have Cellulitis of the Left Foot. Please clarify if there is a relationship between the diagnosis of Diabetes Type 2 and Cellulitis. History/Risk Factors: per the Attending Medical Management Consult/History & Physical: CHF, DM Type 2, CKD, Hypertension, Atrial Fibrillation, Hypothyroidism, Hyperlipidemia, Former smoker. Clinical Indicators: Presented to the ED on 09/27 with a left foot infection and pain x2 weeks, seen by Orthopedic physician last week and 09/27, sent to the ED for admission with infection. Home meds: Insulin SQ TID. 09/27 VS: T 97.7, P 80, R 18, BP 158/64, PO 96 RA, BMI: 48.5 09/27 LAB: Na 136, BUN 52, Cr 1.65, Glucose 187, CRP 1.1 09/28 Left Foot XR: No significant abnormality evident to suggest abscess. Treatment: Infectious Disease and Orthopedic Consults, IV Zosyn 100 mls @ 200 mls/hr x1, po [place] 5-325 q4H/prn, , IV Vancomycin 500 mls @ 167 mls/hr x1, IV Morphine q4H. Please clarify the relationship which is clinically significant: [ ] Cellulitis of the left foot is related to the IDDM II [ X ] Cellulitis of the left foot is not related to the IDDM II [ ] Other explanation of clinical findings (please specify) [ ] Unable to determine (no explanation for clinical findings) (Template Last Revised: November 2020) MTDD
--- NOTE | 2021-10-09 22:28 | P.PN ---
Subjective Progress Note Date: 10/02/21 Principal diagnosis: Left foot cellulitis Patient is a 76-year-old female presenting to the hospital with left foot pain swelling and redness this patient has been diagnosed with a left foot cellulitis and was consulted for possible abscess. Pt is s/p aspirate of the ri ght foot this am by ortho On today's evaluation that is 10/02/2021, the patient denies any fever or any chills, the patient left foot pain swelling redness has decreased in intensity, patient denies any drainage no chest pain shortness of breath or cough no abdominal pain and no diarrhea with antibiotic therapy, feeling better and wants to go home Objective - Vital Signs Vital signs: Vital Signs Temp 97.9 F 10/02/21 08:16 Pulse 76 10/02/21 08:16 Resp 16 10/02/21 08:16 BP 93/55 10/02/21 08:16 Pulse Ox 92 L 10/02/21 08:16 Intake & Output 10/01/21 10/02/21 10/02/21 18:59 06:59 18:59 Intake Total 540 Balance 540 Intake: Oral 540 Other: Voiding Method Toilet # Voids 4 2 - Exam GENERAL DESCRIPTION:[ Patient is awake and alert in no distress] HEENT: [Oral mucosa is dry and no pharyngeal erythema] RESPIRATORY SYSTEM: [Unlabored breathing clear to auscultation] CARDIA VASCULAR SYSTEM: [S1-S2 regular rate and rhythm no murmur] GI: [Abdominal soft there's no tenderness no organomegaly] EXTREMITIES: [Left foot swelling and redness has slightly decreased ] - Labs CBC & Chem 7: 09/30/21 07:28 09/30/21 07:28 Labs: Abnormal Lab Results - Last 24 Hours (Table) 09/30/21 10/01/21 10/01/21 Range/Units 07:28 11:26 17:22 POC Glucose (mg/dL) 122 H 144 H (75-99) mg/dL Hemoglobin A1c 8.0 H (0.0-6.0) % 10/01/21 10/02/21 Range/Units 19:38 07:08 POC Glucose (mg/dL) 161 H 118 H (75-99) mg/dL Hemoglobin A1c (0.0-6.0) % Microbiology - Last 24 Hours (Table) 09/30/21 11:00 Gram Stain - Final Foot - Left Wound Culture - Final 09/27/21 10:50 Blood Culture - Preliminary Blood No Growth after 96 hours 09/27/21 10:35 Blood Culture - Preliminary Blood No Growth after 96 hours Assessment and Plan (1) Cellulitis of left foot Status: Acute Code(s): L03.116 - CELLULITIS OF LEFT LOWER LIMB SNOMED Code(s): 223828556 Plan: 1-patient with left foot cellulitis and small area of fluctuance status post aspirate, in this patient seemed to have show some clinical improvement, culture has been negative so far in view of clinical improvement with Unasyn will finish therapy with oral Augmentin 7 days and close out patient follow-up Time with Patient: Less than 30
== END 2021-10-02 14:01 | disposition home or self-care (01) | DRG 603 ==
LOC: EC 10:02 → 5NMEDONC 10:27
PROVIDERS: ADMIT Internal Medicine; ATTEND Internal Medicine
DX: L03.116 Cellulitis of left lower limb (principal); N18.4 Chronic kidney disease, stage 4 (severe); I13.0 Hypertensive heart and chronic kidney disease with heart failure and stage 1 through stage 4 chronic kidney disease, or unspecified chronic kidney disease; I50.32 Chronic diastolic (congestive) heart failure; L08.9 Local infection of the skin and subcutaneous tissue, unspecified; E03.9 Hypothyroidism, unspecified; E11.22 Type 2 diabetes mellitus with diabetic chronic kidney disease; E78.5 Hyperlipidemia, unspecified; I48.0 Paroxysmal atrial fibrillation; K59.00 Constipation, unspecified; M19.90 Unspecified osteoarthritis, unspecified site; Z20.822 Contact with and (suspected) exposure to COVID-19; Z79.01 Long term (current) use of anticoagulants; Z79.4 Long term (current) use of insulin; Z79.890 Hormone replacement therapy; Z79.899 Other long term (current) drug therapy; Z80.0 Family history of malignant neoplasm of digestive organs; Z82.3 Family history of stroke; Z82.49 Family history of ischemic heart disease and other diseases of the circulatory system; Z87.891 Personal history of nicotine dependence
CPT/HCPCS: 36415; 74019; 80048; 80053; 80202; 82565; 83036; 85025; 85652; 86140; 87040; 87070; 87075; 87205; 87635; 93306; 93922; 94640; 94660; 94760; 99284

== ENCOUNTER 2023-03-15 11:44 | Inpatient (IN) | payer MEDICARE, OTHER ==
[2023-03-15] MEDS ORDERED: FUROSEMIDE 10 MG/ML 4 ML VIAL IV STA (12:19)
--- NOTE | 2023-03-15 12:22 | ED ---
General Adult HPI - General Chief complaint: Shortness of Breath Stated complaint: SOB, Leg swelling Time Seen by Provider: 03/15/23 11:59 Source: patient, family, RN notes reviewed Mode of arrival: wheelchair Limitations: no limitations - History of Present Illness Initial comments: Patient is a pleasant 77-year-old female presenting to the emergency department with concerns for leg edema and exertional dyspnea. Onset of symptoms was a couple days ago. Daughter is present and helps provide history. Patient does have history of similar symptoms previously associated with CHF. Patient also has some orthopnea. No chest pain. No fever or cough. No calf pain. - Related Data Home Medications Medication Instructions Recorded Confirmed Albuterol Nebulized [Ventolin 2.5 mg INHALATION RT-QID PRN 05/21/17 09/27/21 Nebulized] Aspirin EC [Ecotrin Low Dose] 81 mg PO MOWEFR 05/21/17 09/27/21 Furosemide [Lasix] 40 mg PO BID 05/21/17 09/27/21 INSULIN ASPART (NovoLOG) [NovoLOG 9 unit SQ [facility] 05/21/17 09/27/21 (formulary)] Insulin Glargine [Lantus Vial] 50 unit SQ HS 05/21/17 09/27/21 Levothyroxine Sodium [Synthroid] 25 mcg PO DAILY 05/21/17 09/27/21 [place]-3 Fatty Acids/Fish Oil [Fish 1 cap PO BID 05/21/17 09/27/21 Oil 1,000 mg Softgel] Simvastatin [Zocor] 40 mg PO HS 05/21/17 09/27/21 allopurinoL [Zyloprim] 150 mg PO DAILY 05/21/17 09/27/21 calcitrioL [Rocaltrol] 0.25 mcg PO MOWEFR 05/21/17 09/27/21 Apixaban [Eliquis] 5 mg PO BID 09/27/21 09/27/21 Ascorbic Acid [Vitamin C] 500 mg PO DAILY 09/27/21 09/27/21 Budesonide [Pulmicort] 0.5 mg INHALATION RT-BID 09/27/21 09/27/21 Calc/Magne/Zinc/D 1 tab PO HS 09/27/21 09/27/21 Fluticasone Nasal [place] [Flonase 2 spray EA NOSTRIL DAILY 09/27/21 09/27/21 Nasal [place]] Garlic 1 tab PO DAILY 09/27/21 09/27/21 Ipratropium Nebulized [Atrovent 0.5 mg INHALATION RT-QID PRN 09/27/21 09/27/21 Nebulized 0.2 MG/ML] Latanoprost [Xalatan 0.005%] 1 drop BOTH EYES HS 09/27/21 09/27/21 Montelukast [Singulair] 10 mg PO DAILY 09/27/21 09/27/21 Spironolactone 50 mg PO DAILY 09/27/21 09/27/21 Turmeric Root Extract [Turmeric] 500 mg PO DAILY 09/27/21 09/27/21 amLODIPine [Norvasc] 10 mg PO DAILY 09/27/21 09/27/21 Previous Rx's Medication Instructions Recorded Amoxic-Pot Clav 500-125 mg 1 tab PO BID #14 tab 10/02/21 [Augmentin 500-125 mg] Sennosides-Docusate Sodium 2 each PO DAILY tab 10/02/21 [Senokot-S] polyethylene glycoL 3350 [Miralax] 17 gm PO DAILY packet 10/02/21 Allergies Allergy/AdvReac Type Severity Reaction Status Date / Time No Known Allergies Allergy Verified 03/15/23 11:49 Review of Systems ROS Statement: Those systems with pertinent positive or pertinent negative responses have been documented in the HPI. ROS Other: All systems not noted in ROS Statement are negative. Constitutional: Denies: fever Eyes: Denies: eye pain ENT: Denies: ear pain Respiratory: Reports: as per HPI, dyspnea. Denies: cough Cardiovascular: Reports: as per HPI, dyspnea on exertion, edema. Denies: chest pain Endocrine: Denies: fatigue Gastrointestinal: Denies: abdominal pain Genitourinary: Denies: dysuria Musculoskeletal: Denies: back pain Skin: Denies: rash Neurological: Denies: weakness Past Medical History Past Medical History: Heart Failure, Diabetes Mellitus, Hyperlipidemia, Hypertension, Renal Disease, Respiratory Disorder Additional Past Medical History / Comment(s): IDDM type II, neuropathy L hand/bi lateral feet, CKD stage IV, UTIs, pt states she has been told she has bilateral lung base scar tissue, DANIEL with Cpap/o2 2l/nc at hs, gout, chronic R shoulder pain for months, chronic low back pain/DDD, bilateral glaucoma, hypothyroid. History of Any Multi-Drug Resistant Organisms: None Reported Past Surgical History: Section Additional Past Surgical History / Comment(s): R carpal tunnel release, colonoscopy/benign polypectomies, R breast benign biopsy, D&C, bilateral cataract removals, 3 C-sections. Past Anesthesia/Blood Transfusion Reactions: No Reported Reaction Past Psychological History: No Psychological Hx Reported Smoking Status: Former smoker Past Alcohol Use History: None Reported Past Drug Use History: None Reported - Past Family History Father Family Medical History: Hypertension Additional Family Medical History / Comment(s): Possibly skin cancer. Mother Family Medical History: CVA/TIA, Hypertension Additional Family Medical History / Comment(s): Mother at the age of 59 yrs from a CVA. General Exam Limitations: no limitations General appearance: alert, in no apparent distress Head exam: Present: normocephalic Eye exam: Present: normal appearance Neck exam: Present: normal inspection Respiratory exam: Present: wheezes (Minimal expiratory) Cardiovascular Exam: Present: regular rate, normal rhythm GI/Abdominal exam: Present: soft. Absent: tenderness Extremities exam: Present: pedal edema. Absent: calf tenderness Neurological exam: Present: alert Psychiatric exam: Present: normal affect, normal mood Skin exam: Present: normal color Course Vital Signs 03/15/23 11:46 Temperature 98.1 F Pulse Rate 64 Respiratory 20 Rate Blood Pressure 156/62 O2 Sat by Pulse 93 L Oximetry EKG Findings - EKG Results: EKG: interpreted by ERMD, sinus rhythm, normal axis, normal QRS, normal ST/T Medical Decision Making - Medical Decision Making Was pt. sent in by a medical professional or institution (, PA, SPEECH LANG PATH THERAPIST, urgent care, hospital, or snf...) When possible be specific @ -[No] Did you speak to anyone other than the patient for history (EMS, parent, family, police, friend...)? What history was obtained from this source @ -Daughter is present and helps) history including history of previous CHF. Did you review nursing and triage notes (agree or disagree)? Why? @ -[I reviewed and agree with nursing and triage notes] Were old charts reviewed (outside hosp., previous admission, EMS record, old EKG, old radiological studies, urgent care reports/EKG's, snf records)? Report findings @ -[No old charts were reviewed] Differential Diagnosis (chest pain, altered mental status, abdominal pain women, abdominal pain men, vaginal bleeding, weakness, fever, dyspnea, syncope, headache, dizziness, GI bleed, back pain, seizure, CVA, palpatations, mental health, musculoskeletal)? @ -Differential Chest Pain: Stable Angina, Unstable Angina, STEMI, NSTEMI Aortic Dissection, Pneumothorax, Musculoskeletal, Esophageal Spasm GERD, Cholecystitis, Pancreatitis, Zoster, this is not meant to be an all-inclusive list. EKG interpreted by me (3pts min.). @ -[As above] X-rays interpreted by me (1pt min.). @ -Chest x-ray shows cephalization consistent with CHF CT interpreted by me (1pt min.). @ -[None done] U/S interpreted by me (1pt. min.). @ -[None done] What testing was considered but not performed or refused? (CT, X-rays, U/S, la bs)? Why? @ -[None] What meds were considered but not given or refused? Why? @ -[None] Did you discuss the management of the patient with other professionals (professionals i.e. , PA, SPEECH LANG PATH THERAPIST, lab, RT, psych nurse, social science analyst, public policy professor, teacher, credit officer, continuous pillowcase cutter)? Give summary @ -Case was discussed with Dr. Villalobos, who will admit For Dr. Benjamin Was smoking cessation discussed for >3mins.? @ -[No] Was critical care preformed (if so, how long)? @ -[No] Were there social determinants of health that impacted care today? How? (Homelessness, low income, unemployed, alcoholism, drug addiction, transpor tation, low edu. Level, literacy, decrease access to med. care, half-way, rehab)? @ -[No] Was there de-escalation of care discussed even if they declined (Discuss DNR or withdrawal of care, Hospice)? DNR status @ -[No] What co-morbidities impacted this encounter? (DM, HTN, Smoking, COPD, CAD, Cancer, CVA, ARF, Chemo, Hep., AIDS, mental health diagnosis, sleep apnea, morbid obesity)? @ -[None] Was patient admitted / discharged? Hospital course, mention meds given and route, prescriptions, significant lab abnormalities, going to OR and other pertinent info. @ -Patient reevaluated. Patient family updated on results and plan. Patient has clinical and chest x-ray findings consistent with CHF. Patient will be admitted for diuresis. Undiagnosed new problem with uncertain prognosis? @ -[No] Drug Therapy requiring intensive monitoring for toxicity (Heparin, Nitro, Insulin, Cardizem)? @ -[No] Were any procedures done? @ -[No] Diagnosis/symptom? @ -chf Acute, or Chronic, or Acute on Chronic? @ -Acute Uncomplicated (without systemic symptoms) or Complicated (systemic symptoms)? @ -[default] Side effects of treatment? @ -[No] Exacerbation, Progression, or Severe Exacerbation? @ -[No] Poses a threat to life or bodily function? How? (Chest pain, [place], [place], pneumonia, PE, COPD, DKA, ARF, appy, cholecystitis, CVA, Diverticulitis, Homicidal, Suicidal, threat to staff... and all critical care pts) @ -[No] - Lab Data Result diagrams: 03/15/23 12:30 03/15/23 12:30 Lab Results 03/15/23 03/15/23 03/15/23 Range/Units 12:30 12:30 12:30 WBC 9.3 (3.8-10.6) k/uL RBC 4.86 (3.80-5.40) m/uL Hgb 14.6 (11.4-16.0) gm/dL Hct 46.0 (34.0-46.0) % MCV 94.6 (80.0-100.0) fL MCH 29.9 (25.0-35.0) pg MCHC 31.6 (31.0-37.0) g/dL RDW 13.9 (11.5-15.5) % Plt Count 229 (150-450) k/uL MPV 9.5 Neutrophils % 68 % Lymphocytes % 19 % Monocytes % 6 % Eosinophils % 5 % Basophils % 0 % Neutrophils # 6.3 (1.3-7.7) k/uL Lymphocytes # 1.8 (1.0-4.8) k/uL Monocytes # 0.5 (0-1.0) k/uL Eosinophils # 0.5 (0-0.7) k/uL Basophils # 0.0 (0-0.2) k/uL PT 10.0 (9.0-12.0) sec INR 0.9 (<1.2) APTT 25.4 (22.0-30.0) sec Sodium 138 (137-145) mmol/L Potassium 4.7 (3.5-5.1) mmol/L Chloride 98 (98-107) mmol/L Carbon Dioxide 32 H (22-30) mmol/L Anion Gap 8 mmol/L BUN 39 H (7-17) mg/dL Creatinine 1.68 H (0.52-1.04) mg/dL Est GFR (CKD-EPI)AfAm 33 (>60 ml/min/1.73 sqM) Est GFR (CKD-EPI)NonAf 29 (>60 ml/min/1.73 sqM) Glucose 91 (74-99) mg/dL Plasma Lactic Acid Luis (0.7-2.0) mmol/L Calcium 9.6 (8.4-10.2) mg/dL Magnesium 2.6 H (1.6-2.3) mg/dL Total Bilirubin 0.6 (0.2-1.3) mg/dL AST 24 (14-36) U/L ALT 16 (4-34) U/L Alkaline Phosphatase 67 (38-126) U/L Troponin I (0.000-0.034) ng/mL NT-Pro-B Natriuret Pep pg/mL Total Protein 7.3 (6.3-8.2) g/dL Albumin 4.2 (3.5-5.0) g/dL 03/15/23 03/15/23 03/15/23 Range/Units 12:30 12:30 12:30 WBC (3.8-10.6) k/uL RBC (3.80-5.40) m/uL Hgb (11.4-16.0) gm/dL Hct (34.0-46.0) % MCV (80.0-100.0) fL MCH (25.0-35.0) pg MCHC (31.0-37.0) g/dL RDW (11.5-15.5) % Plt Count (150-450) k/uL MPV Neutrophils % % Lymphocytes % % Monocytes % % Eosinophils % % Basophils % % Neutrophils # (1.3-7.7) k/uL Lymphocytes # (1.0-4.8) k/uL Monocytes # (0-1.0) k/uL Eosinophils # (0-0.7) k/uL Basophils # (0-0.2) k/uL PT (9.0-12.0) sec INR (<1.2) APTT (22.0-30.0) sec Sodium (137-145) mmol/L Potassium (3.5-5.1) mmol/L Chloride (98-107) mmol/L Carbon Dioxide (22-30) mmol/L Anion Gap mmol/L BUN (7-17) mg/dL Creatinine (0.52-1.04) mg/dL Est GFR (CKD-EPI)AfAm (>60 ml/min/1.73 sqM) Est GFR (CKD-EPI)NonAf (>60 ml/min/1.73 sqM) Glucose (74-99) mg/dL Plasma Lactic Acid Luis 0.9 (0.7-2.0) mmol/L Calcium (8.4-10.2) mg/dL Magnesium (1.6-2.3) mg/dL Total Bilirubin (0.2-1.3) mg/dL AST (14-36) U/L ALT (4-34) U/L Alkaline Phosphatase (38-126) U/L Troponin I <0.012 (0.000-0.034) ng/mL NT-Pro-B Natriuret Pep 784 pg/mL Total Protein (6.3-8.2) g/dL Albumin (3.5-5.0) g/dL Disposition Clinical Impression: Congestive heart failure Disposition: ADMITTED IP TO THIS HOSP Is patient prescribed a controlled substance at d/c from ED?: No Referrals: Orion Benjamin MD [Primary Care Provider] - 1-2 days Time of Disposition: 14:12
[2023-03-15 12:54] LABS: Basophils % (A) 0 %; Eosinophils # (A) 0.5 k/uL (0-0.7); Eosinophils % (A) 5 %; HGB 14.6 gm/dL (11.4-16.0); Lymphocytes # (A) 1.8 k/uL (1.0-4.8); Lymphocytes % (A) 19 %; MCH 29.9 pg (25.0-35.0); MCHC 31.6 g/dL (31.0-37.0); MCV 94.6 fL (80.0-100.0); Mean Platelet Volume 9.5; Monocytes # (A) 0.5 k/uL (0-1.0); Monocytes % (A) 6 %; Neutrophils # (A) 6.3 k/uL (1.3-7.7); Neutrophils % (A) 68 %; Platelet Count 229 k/uL (150-450); RBC 4.86 m/uL (3.80-5.40); RDW 13.9 % (11.5-15.5); WBC 9.3 k/uL (3.8-10.6)
--- NOTE | 2023-03-15 12:56 | XR ---
EXAMINATION TYPE: XR chest 2V DATE OF EXAM: 03/15/2023 12:40 PM COMPARISON: Chest radiographs from 05/21/2017 TECHNIQUE: XR chest 2V Frontal and lateral views of the chest. CLINICAL INDICATION:Female, 77 years old with history of difficulty breathing; FINDINGS: Patient is rotated which limits evaluation. Lungs/Pleura: There is no evidence of pleural effusion, focal consolidation, or pneumothorax. Pulmonary vascularity: Pulmonary vascular congestion. Heart/mediastinum: Cardiomediastinal silhouette is enlarged and stable. Atherosclerotic calcificatio ns are seen in the aorta. Musculoskeletal: No acute osseous pathology. IMPRESSION: Cardiomegaly and mild pulmonary vascular congestion. Correlate with BNP for congestive heart failure.
[2023-03-15 13:03] LABS: INR 0.9 (<1.2); Partial Thromboplastin Time 25.4 sec (22.0-30.0)
[2023-03-15 13:12] LABS: ALT 16 U/L (4-34); AST 24 U/L (14-36); African American GFR (CKD) 33 (>60 ml/min/1.73 sqM); Albumin 4.2 g/dL (3.5-5.0); Alkaline Phosphatase 67 U/L (38-126); Anion Gap 8 mmol/L; Blood Urea Nitrogen 39 mg/dL (7-17); Calcium 9.6 mg/dL (8.4-10.2); Carbon Dioxide 32 mmol/L (22-30); Chloride 98 mmol/L (98-107); Glucose 91 mg/dL (74-99); Magnesium 2.6 mg/dL (1.6-2.3); Non-African American GFR(CKD) 29 (>60 ml/min/1.73 sqM); Potassium 4.7 mmol/L (3.5-5.1); Sodium 138 mmol/L (137-145); Total Bilirubin 0.6 mg/dL (0.2-1.3); Total Protein 7.3 g/dL (6.3-8.2)
[2023-03-15] MEDS ORDERED: ASPIRIN 325 MG TAB PO STA (14:12)
[2023-03-15] MEDS: NITROGLYCERIN OINT 1 INCH/GM PACKET TOPICAL SCH ×3 (15:09→20:58)
[2023-03-15 16:45] LABS: Glucose,Whole Blood 118 mg/dL (70-110)
[2023-03-15] MEDS ORDERED: HYDROcodone/APAP 7.5-325MG 1 EACH TAB PO PRN (17:15)
[2023-03-15] MEDS ORDERED: IPRATROPIUM 0.5 MG/2.5 ML NEBU INHALATION PRN (17:15)
[2023-03-15] MEDS ORDERED: ALBUTEROL NEBULIZED 2.5 MG/3 ML INHALATION PRN (17:15)
[2023-03-15] MEDS: amLODIPine 10 MG TAB PO SCH (17:34)
[2023-03-15] MEDS: METOPROLOL SUCCINATE (ER) 50 MG TAB.ER.24H PO SCH (17:34)
[2023-03-15] MEDS: allopurinoL 300 MG TAB PO SCH (17:34)
[2023-03-15] MEDS: CHOLECALCIFEROL 25 MCG (1000 IU) TABLET PO SCH (17:34)
[2023-03-15] MEDS: SPIRONOLACTONE 25 MG TAB PO SCH (17:35)
[2023-03-15] MEDS: FUROSEMIDE 10 MG/ML 4 ML VIAL IV SCH (17:35)
[2023-03-15] MEDS: INSULIN ASPART (NovoLOG) 100 UNIT/ML VIAL SQ SCH ×2 (17:38→20:13)
[2023-03-15 19:49] LABS: Glucose,Whole Blood 201 mg/dL (70-110)
[2023-03-15] MEDS ORDERED: ALBUTEROL NEBULIZED 2.5 MG/3 ML INHALATION SCH (20:00)
[2023-03-15] MEDS ORDERED: IPRATROPIUM 0.5 MG/2.5 ML NEBU INHALATION SCH (20:00)
[2023-03-15] MEDS: APIXABAN 5 MG TAB PO SCH (20:12)
[2023-03-15] MEDS: INSULIN DETEMIR (LEVEMIR) 100 UNIT/ML SYR SQ SCH (20:12)
[2023-03-15] MEDS: ATORVASTATIN 20 MG TAB PO SCH (20:12)
[2023-03-15] MEDS: MONTELUKAST 10 MG TAB PO SCH (20:12)
[2023-03-15] MEDS ORDERED: IPRATROPIUM-ALBUTEROL 3 ML NEB INHALATION PRN (20:25)
[2023-03-15] MEDS: IPRATROPIUM-ALBUTEROL 3 ML NEB INHALATION SCH (20:33)
[2023-03-15] MEDS: BUDESONIDE 0.5 MG/2 ML NEBU INHALATION SCH (20:33)
[2023-03-15] MEDS: LATANOPROST 0.005% OPHTH DROPS 2.5 ML BTL BOTH EYES SCH (20:58)
--- NOTE | 2023-03-16 01:15 | P.HPIM ---
History of Present Illness H&P Date: 03/15/23 Chief Complaint: Leg swelling Patient is a 78-year-old female with a known history of hypertension, hyperlipidemia, diabetes type 2 insulin-dependent, diabetic peripheral neur opathy, obstructive sleep apnea on CPAP, CKD stage III and a prior history of smoking presents to ER with complaints of worsening bilateral leg swelling and exertional dyspnea. Patient has been having symptoms for the past couple of weeks and gradually getting worse. Denies any complaints of chest pain. No cough or sputum production. No fever no chills. Patient had echocardiogram in September 2021 showed ejection fraction 55 to 60% with moderate left ventricular concentric hypertrophy. Chest x-ray showed cardiomegaly and mild pulmonary vascular congestion. Correlate with BNP for congestive heart failure. EKG showed sinus rhythm with low QRS voltages. Laboratory data showed sodium 138 potassium 4.7 chloride 98 bicarb is 32 BUN 39 creatinine 1.68 and blood sugar is 91. Liver Lisa not elevated. Troponin x3 negative and proBNP is 784. Review of Systems Constitutional: Patient denies any fever or chills . no Generalized weakness. Abdomen: Patient denied any nausea or vomiting or abd. pain Cardiovascular: Patient denies any chest pain patient does have short of breath no palpitations. Worsening leg swelling. Respiratory: patient denied any cough . no sputum production. Positive for shortness of breath Neurologic: Patient denied any numbness or tingling headache. Musculoskeletal: Patient denies any complaints of joint swelling or deformity. Skin: Negative Psychiatric: Negative Endocrine: No heat or cold intolerance. No recent weight gain. Genitourinary: No dysuria or hematuria. All other 14 point ROS negative except the above Past Medical History Past Medical History: Heart Failure, Diabetes Mellitus, Hyperlipidemia, Hypertension, Renal Disease, Respiratory Disorder Additional Past Medical History / Comment(s): IDDM type II, neuropathy L hand/bilateral feet, CKD stage IV, UTIs, pt states she has been told she has bilateral lung base scar tissue, DANIEL with Cpap/o2 2l/nc at hs, gout, chronic R shoulder pain for months, chronic low back pain/DDD, bilateral glaucoma, hyp othyroid. History of Any Multi-Drug Resistant Organisms: None Reported Past Surgical History: Section Additional Past Surgical History / Comment(s): R carpal tunnel release, colonoscopy/benign polypectomies, R breast benign biopsy, D&C, bilateral cataract removals, 3 C-sections. Past Anesthesia/Blood Transfusion Reactions: No Reported Reaction Past Psychological History: No Psychological Hx Reported Additional Psychological History / Comment(s): Pt resides alone. She no longer drives, her family takes her places. She is otherwise, independent. Smoking Status: Former smoker Past Alcohol Use History: None Reported Additional Past Alcohol Use History / Comment(s): Pt states she was a light smoker in her 20s. Past Drug Use History: None Reported - Past Family History Father Family Medical History: Hypertension Additional Family Medical History / Comment(s): Possibly skin cancer. Mother Family Medical History: CVA/TIA, Hypertension Additional Family Medical History / Comment(s): Mother at the age of 59 yrs from a CVA. Medications and Allergies Home Medications Medication Instructions Recorded Confirmed Type Albuterol Nebulized [Ventolin 2.5 mg INHALATION RT-BID 05/21/17 03/15/23 History Nebulized] Aspirin EC [Ecotrin Low Dose] 81 mg PO DIRECTED 05/21/17 03/15/23 History Furosemide [Lasix] 40 mg PO BID 05/21/17 03/15/23 History INSULIN ASPART (NovoLOG) [NovoLOG 9 unit SQ ACHS 05/21/17 03/15/23 History (formulary)] Simvastatin [Zocor] 40 mg PO HS 05/21/17 03/15/23 History allopurinoL [Zyloprim] 150 mg PO DAILY 05/21/17 03/15/23 History calcitrioL [Rocaltrol] 0.25 mcg PO MOWEFR 05/21/17 03/15/23 History Apixaban [Eliquis] 5 mg PO BID 09/27/21 03/15/23 History Budesonide [Pulmicort] 0.5 mg INHALATION RT-BID 09/27/21 03/15/23 History Fluticasone Nasal [place] [Flonase 2 spr EA NOSTRIL HS 09/27/21 03/15/23 History Nasal [place]] Garlic 1 tab PO DAILY 09/27/21 03/15/23 History Ipratropium Nebulized [Atrovent 0.5 mg INHALATION RT-BID 09/27/21 03/15/23 History Nebulized 0.2 MG/ML] Latanoprost [Xalatan 0.005%] 2 drops BOTH EYES HS 09/27/21 03/15/23 History Montelukast [Singulair] 10 mg PO HS 09/27/21 03/15/23 History Spironolactone 50 mg PO DAILY 09/27/21 03/15/23 History amLODIPine [Norvasc] 10 mg PO DAILY 09/27/21 03/15/23 History Albuterol Nebulized [Ventolin 2.5 mg INHALATION RT-BID PRN 03/15/23 03/15/23 History Nebulized] Calcium Acetate 667mg Caps 1 cap PO DAILY 03/15/23 03/15/23 History Calcium Carbonate [Calcium] 600 mg PO DAILY 03/15/23 03/15/23 History Cholecalciferol [Vitamin D3 (25 25 mcg PO DAILY 03/15/23 03/15/23 History Mcg = 1000 Iu)] Cranberry 4200mg 1 tab PO DAILY 03/15/23 03/15/23 History HYDROcodone/APAP 7.5-325MG [[place] 1 tab PO Q6H PRN 03/15/23 03/15/23 History 7.5-325] Insulin Glargine,Hum.rec.anlog 50 units SQ HS 03/15/23 03/15/23 History [Lantus Solostar Pen] Ipratropium Nebulized [Atrovent 0.5 mg INHALATION RT-BID PRN 03/15/23 03/15/23 History Nebulized 0.2 MG/ML] Levothyroxine Sodium [Synthroid] 50 mcg PO DAILY 03/15/23 03/15/23 History Loratadine [Claritin] 10 mg PO DAILY 03/15/23 03/15/23 History Magnesium 250 mg PO DAILY 03/15/23 03/15/23 History Metoprolol Succinate (ER) [Toprol 50 mg PO DAILY 03/15/23 03/15/23 History Xl] [place]-3 Fatty Acids/Fish Oil 1 cap PO BID 03/15/23 03/15/23 History [[place]-3 Fish Oil 1,200 mg Sfgl] Psyllium Husk (with Sugar) 6 gm PO DAILY 03/15/23 03/15/23 History [Metamucil Powder] Triamcinolone 0.025% Cream 1 applic TOPICAL BID 03/15/23 03/15/23 History [Kenalog 0.025% Cream] Zinc Gluconate [Zinc] 50 mg PO DAILY 03/15/23 03/15/23 History Allergies Allergy/AdvReac Type Severity Reaction Status Date / Time No Known Allergies Allergy Verified 03/15/23 15:08 Physical Exam Vitals: Vital Signs Temp Pulse Pulse Resp BP BP Pulse Ox 03/15/23 17:13 58 L 18 150/73 96 03/15/23 16:18 58 L 20 157/80 97 03/15/23 16:10 58 L 157/80 97 03/15/23 16:00 53 L 140/52 97 03/15/23 15:50 60 140/52 98 03/15/23 15:40 52 L 140/52 97 03/15/23 15:30 56 L 152/68 96 03/15/23 15:20 58 L 152/68 98 03/15/23 15:10 56 L 152/68 98 03/15/23 15:02 53 L 18 152/68 98 03/15/23 15:00 54 L 147/61 98 03/15/23 14:50 55 L 147/61 98 03/15/23 14:40 54 L 147/61 98 03/15/23 14:30 151/66 98 03/15/23 14:20 55 L 151/66 98 03/15/23 14:16 56 L 16 151/66 98 03/15/23 14:10 56 L 151/66 97 03/15/23 14:00 51 L 133/49 98 03/15/23 13:50 53 L 133/49 98 03/15/23 13:40 55 L 133/49 98 03/15/23 13:30 51 L 133/49 98 03/15/23 13:20 53 L 133/49 98 03/15/23 13:10 52 L 133/49 97 03/15/23 13:00 166/74 93 L 03/15/23 12:50 166/74 95 03/15/23 12:40 166/74 03/15/23 12:30 56 L 166/74 97 03/15/23 12:20 56 L 95 03/15/23 12:10 57 L 97 03/15/23 12:04 95 03/15/23 11:46 98.1 F 64 20 156/62 93 L Intake and Output 03/15/23 03/15/23 03/15/23 06:59 14:59 22:59 Other: # Voids 1 Weight 124.738 kg 124.738 kg PHYSICAL EXAMINATION: Patient is lying in the bed comfortably, no acute distress, awake alert and oriented.. HEENT: Normocephalic. Neck is supple. Pupils reactive. Nostrils clear. Oral cavity is moist. Neck reveals no JVD, carotid bruits, or thyromegaly. CHEST EXAMINATION: Trachea is central. Symmetrical expansion. Bibasilar crackles and diminished sounds. No wheezing.. CARDIAC: Normal S1, S2 with no gallops. No murmurs ABDOMEN: Soft. Bowel sounds present. Nontender. No organomegaly. No abdominal bruits. Extremities: 3+ bilateral pedal edema. No clubbing or cyanosis Neurologically awake, alert, oriented x3 with well-coordinated movements. No focal deficits noted Skin: No rash or skin lesions. Psychiatric: Coperative. Nonsuicidal, Musculoskeletal: No joint swelling or deformity. Normal range of motion. Results CBC & Chem 7: 03/16/23 10:37 03/16/23 10:37 Labs: Abnormal Lab Results - Last 24 Hours (Table) 03/15/23 03/15/23 Range/Units 12:30 16:43 Carbon Dioxide 32 H (22-30) mmol/L BUN 39 H (7-17) mg/dL Creatinine 1.68 H (0.52-1.04) mg/dL POC Glucose (mg/dL) 118 H (70-110) mg/dL Magnesium 2.6 H (1.6-2.3) mg/dL Thrombosis Risk Factor Assmnt - DVT/VTE Prophylaxis DVT/VTE Prophylaxis: Pharmacologic Prophylaxis ordered - Choose All That Apply Any of the Below Risk Factors Present?: Yes Each Factor Represents 1 point: Obesity (BMI >25), Swollen legs (current) Other Risk Factors: Yes Each Risk Factor Represents 3 Points: Age 75 years or older Thrombosis Risk Factor Assessment Total Risk Factor Score: 5 Thrombosis Risk Factor Assessment Level: High Risk Assessment and Plan Assessment: Acute on chronic CHF with preserved ejection fraction CKD stage IV with volume overload Bilateral leg swelling and exertional dyspnea Hypertension Diabetes type 2 insulin-dependent Hypothyroidism Bilateral peripheral neuropathy Obstructive sleep apnea on CPAP at home Chronic low back pain Hyperlipidemia Morbid obesity BMI 50.3 Prior history of smoking DVT prophylaxis. Patient is already on Eliquis. Plan: Patient will continue on telemetry monitoring. Continue with IV Lasix 40 mg every 8 hourly. Start bicarb aspirin, statin and patient is also on Toprol-XL 50 mg daily. Cardiology consult for evaluation. Monitor renal function closely. Continue with home medications including Synthroid and insulin regimen and titrate dose as needed. Continue with breathing treatments Prognosis guarded with multiple medical problems and comorbid conditions. Time with Patient: Greater than 30
[2023-03-16] MEDS: FUROSEMIDE 10 MG/ML 4 ML VIAL IV SCH ×4 (03:03→20:09)
[2023-03-16 03:13] LABS: Glucose,Whole Blood 52 mg/dL (70-110)
[2023-03-16 03:34] LABS: Glucose,Whole Blood 76 mg/dL (70-110)
[2023-03-16] MEDS: LEVOTHYROXINE 50 MCG TAB PO SCH (05:34)
[2023-03-16] MEDS: INSULIN ASPART (NovoLOG) 100 UNIT/ML VIAL SQ SCH ×4 (05:34→20:09)
[2023-03-16 05:37] LABS: Glucose,Whole Blood 65 mg/dL (70-110)
--- NOTE | 2023-03-16 06:25 | P.CRDCN ---
History of Present Illness Consult date: 03/16/23 Chief complaint: Shortness of breath and lower extremity edema History of present illness: The patient is a very pleasant 78-year-old female patient who sees Dr. Mancilla regularly with a past medical history significant for morbid obesity as well as sleep apnea as well as congestive heart failure and also paroxysmal atrial fibrillation and diabetes and hypertension and dyslipidemia. Beside that she also does have chronic kidney disease. The patient presented to the hospital with 3 weeks history of progressive exertional dyspnea associated with bilateral lower extremity edema was no symptoms of chest pain or chest discomfort and no dizziness or lightheadedness and no presyncope or syncope and no heart racing or fluttering. She stated that she has been compliant with her medications. At home she was receiving Lasix and Aldactone. She stated that she was taking the medication religiously and also she has been compliant was low sodium diet. She was found to be in heart failure. She was hypoxic when she presented to the hospital and also she was in severe bilateral lower extremity is edema. She was started on Lasix and she was admitted to the hospital for further evaluation. She underwent a chest x-ray which showed pulmonary vascular congestion and NT proBNP came in to be about 800 only and she is overweight. The kidney function is a slightly abnormal with creatinine of 1.68 which is her baseline. The EKG showed sinus mechanism was low voltage QRS. The rest of the blood work including sodium, potassium came in to be unremarkable and hemoglobin came in to be unremarkable. Currently the patient is on Lasix IV. The last echo was performed in 2021 showing normal LV systolic function was no significant valvular abnormalities On examination today she does have a systolic murmur at the right and left upper sternal border. Also she has diminished breathing sounds bilaterally and she has also bilateral lower extremity is pitting edema noted. She is hypoxic and currently she is on oxygen to maintain normal saturation. Her vitals are stable Assessment Heart failure exacerbation likely related to heart failure with preserved ejection fraction with evidence of right and left failure Hypoxemia secondary to heart failure Bilateral lower extremity edema secondary to heart failure as well Multiple comorbid conditions including diabetes and hypertension and dyslipidemia and chronic kidney disease Morbid obesity Obstructive sleep apnea Plan Continue the current medical regimen including the current dose of Lasix IV Continue monitor the kidney function and electrolytes giving that she has chronic kidney disease Restart the patient back on oral anticoagulation for atrial fibrillation Restart the patient back on Aldactone Obtain an echocardiogram was Doppler Follow-up with the patient Past Medical History Past Medical History: Heart Failure, Diabetes Mellitus, Hyperlipidemia, Hypertension, Renal Disease, Respiratory Disorder Additional Past Medical History / Comment(s): IDDM type II, neuropathy L hand/bilateral feet, CKD stage IV, UTIs, pt states she has been told she has bilateral lung base scar tissue, DANIEL with Cpap/o2 2l/nc at hs, gout, chronic R shoulder pain for months, chronic low back pain/DDD, bilateral glaucoma, hypothyroid. History of Any Multi-Drug Resistant Organisms: None Reported Past Surgical History: Section Additional Past Surgical History / Comment(s): R carpal tunnel release, colonoscopy/benign polypectomies, R breast benign biopsy, D&C, bilateral cataract removals, 3 C-sections. Past Anesthesia/Blood Transfusion Reactions: No Reported Reaction Past Psychological History: No Psychological Hx Reported Additional Psychological History / Comment(s): Pt resides alone. She no longer drives, her family takes her places. She is otherwise, independent. Smoking Status: Former smoker Past Alcohol Use History: None Reported Additional Past Alcohol Use History / Comment(s): Pt states she was a light smoker in her 20s. Past Drug Use History: None Reported - Past Family History Father Family Medical History: Hypertension Additional Family Medical History / Comment(s): Possibly skin cancer. Mother Family Medical History: CVA/TIA, Hypertension Additional Family Medical History / Comment(s): Mother at the age of 59 yrs from a CVA. Medications and Allergies Home Medications Medication Instructions Recorded Confirmed Type Albuterol Nebulized [Ventolin 2.5 mg INHALATION RT-BID 05/21/17 03/15/23 History Nebulized] Aspirin EC [Ecotrin Low Dose] 81 mg PO DIRECTED 05/21/17 03/15/23 History Furosemide [Lasix] 40 mg PO BID 05/21/17 03/15/23 History INSULIN ASPART (NovoLOG) [NovoLOG 9 unit SQ ACHS 05/21/17 03/15/23 History (formulary)] Simvastatin [Zocor] 40 mg PO HS 05/21/17 03/15/23 History allopurinoL [Zyloprim] 150 mg PO DAILY 05/21/17 03/15/23 History calcitrioL [Rocaltrol] 0.25 mcg PO MOWEFR 05/21/17 03/15/23 History Apixaban [Eliquis] 5 mg PO BID 09/27/21 03/15/23 History Budesonide [Pulmicort] 0.5 mg INHALATION RT-BID 09/27/21 03/15/23 History Fluticasone Nasal [place] [Flonase 2 spr EA NOSTRIL HS 09/27/21 03/15/23 History Nasal [place]] Garlic 1 tab PO DAILY 09/27/21 03/15/23 History Ipratropium Nebulized [Atrovent 0.5 mg INHALATION RT-BID 09/27/21 03/15/23 History Nebulized 0.2 MG/ML] Latanoprost [Xalatan 0.005%] 2 drops BOTH EYES HS 09/27/21 03/15/23 History Montelukast [Singulair] 10 mg PO HS 09/27/21 03/15/23 History Spironolactone 50 mg PO DAILY 09/27/21 03/15/23 History amLODIPine [Norvasc] 10 mg PO DAILY 09/27/21 03/15/23 History Albuterol Nebulized [Ventolin 2.5 mg INHALATION RT-BID PRN 03/15/23 03/15/23 History Nebulized] Calcium Acetate 667mg Caps 1 cap PO DAILY 03/15/23 03/15/23 History Calcium Carbonate [Calcium] 600 mg PO DAILY 03/15/23 03/15/23 History Cholecalciferol [Vitamin D3 (25 25 mcg PO DAILY 03/15/23 03/15/23 History Mcg = 1000 Iu)] Cranberry 4200mg 1 tab PO DAILY 03/15/23 03/15/23 History HYDROcodone/APAP 7.5-325MG [[place] 1 tab PO Q6H PRN 03/15/23 03/15/23 History 7.5-325] Insulin Glargine,Hum.rec.anlog 50 units SQ HS 03/15/23 03/15/23 History [Lantus Solostar Pen] Ipratropium Nebulized [Atrovent 0.5 mg INHALATION RT-BID PRN 03/15/23 03/15/23 History Nebulized 0.2 MG/ML] Levothyroxine Sodium [Synthroid] 50 mcg PO DAILY 03/15/23 03/15/23 History Loratadine [Claritin] 10 mg PO DAILY 03/15/23 03/15/23 History Magnesium 250 mg PO DAILY 03/15/23 03/15/23 History Metoprolol Succinate (ER) [Toprol 50 mg PO DAILY 03/15/23 03/15/23 History Xl] [place]-3 Fatty Acids/Fish Oil 1 cap PO BID 03/15/23 03/15/23 History [[place]-3 Fish Oil 1,200 mg Sfgl] Psyllium Husk (with Sugar) 6 gm PO DAILY 03/15/23 03/15/23 History [Metamucil Powder] Triamcinolone 0.025% Cream 1 applic TOPICAL BID 03/15/23 03/15/23 History [Kenalog 0.025% Cream] Zinc Gluconate [Zinc] 50 mg PO DAILY 03/15/23 03/15/23 History Allergies Allergy/AdvReac Type Severity Reaction Status Date / Time No Known Allergies Allergy Verified 03/15/23 15:08 Physical Exam Vitals: Vital Signs Temp Pulse Pulse Resp BP BP Pulse Ox 03/16/23 04:00 55 L 20 152/87 97 03/16/23 00:00 53 L 20 115/53 97 03/15/23 20:51 58 L 03/15/23 20:44 96 03/15/23 20:34 58 L 03/15/23 20:00 98.2 F 54 L 20 122/66 96 03/15/23 17:13 58 L 18 150/73 96 03/15/23 16:18 58 L 20 157/80 97 03/15/23 16:10 58 L 157/80 97 03/15/23 16:00 53 L 140/52 97 03/15/23 15:50 60 140/52 98 03/15/23 15:40 52 L 140/52 97 03/15/23 15:30 56 L 152/68 96 03/15/23 15:20 58 L 152/68 98 03/15/23 15:10 56 L 152/68 98 03/15/23 15:02 53 L 18 152/68 98 03/15/23 15:00 54 L 147/61 98 03/15/23 14:50 55 L 147/61 98 03/15/23 14:40 54 L 147/61 98 03/15/23 14:30 151/66 98 03/15/23 14:20 55 L 151/66 98 03/15/23 14:16 56 L 16 151/66 98 03/15/23 14:10 56 L 151/66 97 03/15/23 14:00 51 L 133/49 98 03/15/23 13:50 53 L 133/49 98 03/15/23 13:40 55 L 133/49 98 03/15/23 13:30 51 L 133/49 98 03/15/23 13:20 53 L 133/49 98 03/15/23 13:10 52 L 133/49 97 03/15/23 13:00 166/74 93 L 03/15/23 12:50 166/74 95 03/15/23 12:40 166/74 03/15/23 12:30 56 L 166/74 97 03/15/23 12:20 56 L 95 03/15/23 12:10 57 L 97 03/15/23 12:04 95 03/15/23 11:46 98.1 F 64 20 156/62 93 L Intake and Output 03/15/23 03/15/23 03/16/23 14:59 22:59 06:59 Intake Total 1080 Output Total 350 Balance 730 Intake: Oral 1080 Output: Urine 350 Other: Voiding Method Toilet Toilet # Voids 1 2 Weight 124.738 kg 124.738 kg 120.2 kg Results 03/15/23 12:30 03/15/23 12:30 Cardiac Enzymes 03/15/23 03/15/23 03/15/23 Range/Units 12:30 12:30 15:21 AST 24 (14-36) U/L Troponin I <0.012 <0.012 (0.000-0.034) ng/mL 03/15/23 Range/Units 18:26 AST (14-36) U/L Troponin I <0.012 (0.000-0.034) ng/mL Coagulation 03/15/23 Range/Units 12:30 PT 10.0 (9.0-12.0) sec APTT 25.4 (22.0-30.0) sec CBC 03/15/23 Range/Units 12:30 WBC 9.3 (3.8-10.6) k/uL RBC 4.86 (3.80-5.40) m/uL Hgb 14.6 (11.4-16.0) gm/dL Hct 46.0 (34.0-46.0) % Plt Count 229 (150-450) k/uL Comprehensive Metabolic Panel 03/15/23 Range/Units 12:30 Sodium 138 (137-145) mmol/L Potassium 4.7 (3.5-5.1) mmol/L Chloride 98 (98-107) mmol/L Carbon Dioxide 32 H (22-30) mmol/L BUN 39 H (7-17) mg/dL Creatinine 1.68 H (0.52-1.04) mg/dL Glucose 91 (74-99) mg/dL Calcium 9.6 (8.4-10.2) mg/dL AST 24 (14-36) U/L ALT 16 (4-34) U/L Alkaline Phosphatase 67 (38-126) U/L Total Protein 7.3 (6.3-8.2) g/dL Albumin 4.2 (3.5-5.0) g/dL Current Medications Generic Name Dose Route Start Last Admin Trade Name Freq PRN Reason Stop Dose Admin Hydrocodone Bitart/Acetaminophen 1 each 03/15/23 17:15 Hydrocodone/Apap 7.5-325mg 1 Each Tab PO Q6H PRN Pain Albuterol/Ipratropium 3 ml 03/15/23 20:25 Ipratropium-Albuterol 3 Ml Neb INHALATION RT-Q2H PRN Shortness Of Breath Or Wheezing Albuterol/Ipratropium 3 ml 03/15/23 21:00 03/15/23 20:33 Ipratropium-Albuterol 3 Ml Neb INHALATION 3 ml BID JOEL Administration Allopurinol 150 mg 03/15/23 17:30 03/15/23 17:34 Allopurinol 300 Mg Tab PO 150 mg DAILY JOEL Administration Amlodipine Besylate 10 mg 03/15/23 17:30 03/15/23 17:34 Amlodipine 10 Mg Tab PO 10 mg DAILY JOEL Administration Apixaban 5 mg 03/15/23 21:00 03/15/23 20:12 Apixaban 5 Mg Tab PO 5 mg BID JOEL Administration Protocol Aspirin 81 mg 03/17/23 09:00 Aspirin 81 Mg PO MoWeFr@0900,2100 [facility] Atorvastatin Calcium 20 mg 03/15/23 21:00 03/15/23 20:12 Atorvastatin 20 Mg Tab PO 20 mg HS JOEL Administration Budesonide 0.5 mg 03/15/23 20:00 03/15/23 20:33 Budesonide 0.5 Mg/2 Ml Nebu INHALATION 0.5 mg RT-BID JOEL Administration Cholecalciferol 25 mcg 03/15/23 17:30 03/15/23 17:34 Cholecalciferol 25 Mcg (1000 Iu) Tablet PO 25 mcg DAILY JOEL Administration Furosemide 40 mg 03/15/23 18:00 03/16/23 03:03 Furosemide 10 Mg/Ml 4 Ml Vial IV 40 mg Q8H JOEL Administration Insulin Aspart 9 unit 03/15/23 17:30 03/16/23 05:34 Insulin Aspart (Novolog) 100 Unit/Ml Vial SQ Not Given ACHS [facility] Insulin Detemir 50 unit 03/15/23 21:00 03/15/23 20:12 Insulin Detemir (Levemir) 100 Unit/Ml Syr SQ 50 unit HS [facility] Administration Ipratropium [place] 0.5 mg 03/15/23 17:15 Ipratropium 0.5 Mg/2.5 Ml Nebu INHALATION RT-BID PRN Shortness Of Breath Latanoprost 1 drops 03/15/23 21:00 03/15/23 20:58 Latanoprost 0.005% Ophth Drops 2.5 Ml Btl BOTH EYES 1 drops HS [facility] Administration Levothyroxine Sodium 50 mcg 03/16/23 06:30 03/16/23 05:34 Levothyroxine 50 Mcg Tab PO 50 mcg DAILY@0630 [facility] Administration Metoprolol Succinate 50 mg 03/15/23 17:30 03/15/23 17:34 Metoprolol Succinate (Er) 50 Mg Tab.Er.24h PO 50 mg DAILY [facility] Administration Montelukast Sodium 10 mg 03/15/23 21:00 03/15/23 20:12 Montelukast 10 Mg Tab PO 10 mg HS [facility] Administration Nitroglycerin 1 inch 03/15/23 14:15 03/15/23 20:58 Nitroglycerin Oint 1 Inch/Gm Packet TOPICAL 1 inch QID [facility] Administration Spironolactone 50 mg 03/15/23 17:30 03/15/23 17:35 Spironolactone 25 Mg Tab PO 50 mg DAILY [facility] Administration Intake and Output 03/15/23 03/15/2303/16/23 14:59 22:59 06:59 Intake Total 1080 Output Total 350 Balance 730 Intake: Oral 1080 Output: Urine 350 Other: Voiding Method Toilet Toilet # Voids 1 2 Weight 124.738 kg 124.738 kg 120.2 kg Patient Weight 03/16/23 06:59 Weight 120.2 kg 03/15/23 12:30 03/15/23 12:30
[2023-03-16] MEDS: IPRATROPIUM-ALBUTEROL 3 ML NEB INHALATION SCH ×2 (07:47→19:30)
[2023-03-16] MEDS: BUDESONIDE 0.5 MG/2 ML NEBU INHALATION SCH ×2 (07:47→19:29)
[2023-03-16] MEDS: APIXABAN 5 MG TAB PO SCH ×2 (08:07→20:08)
[2023-03-16] MEDS: SPIRONOLACTONE 25 MG TAB PO SCH (08:07)
[2023-03-16] MEDS: CHOLECALCIFEROL 25 MCG (1000 IU) TABLET PO SCH (08:07)
[2023-03-16] MEDS: METOPROLOL SUCCINATE (ER) 50 MG TAB.ER.24H PO SCH (08:07)
[2023-03-16] MEDS: NITROGLYCERIN OINT 1 INCH/GM PACKET TOPICAL SCH ×4 (08:07→20:08)
[2023-03-16] MEDS: amLODIPine 10 MG TAB PO SCH (08:07)
[2023-03-16] MEDS: allopurinoL 300 MG TAB PO SCH (08:07)
[2023-03-16] MEDS ORDERED: ASPIRIN 325 MG TAB PO SCH (09:00)
[2023-03-16 11:12] LABS: African American GFR (CKD) 37 (>60 ml/min/1.73 sqM); Anion Gap 6 mmol/L; Blood Urea Nitrogen 42 mg/dL (7-17); Calcium 9.1 mg/dL (8.4-10.2); Carbon Dioxide 33 mmol/L (22-30); Chloride 97 mmol/L (98-107); Glucose 170 mg/dL (74-99); Non-African American GFR(CKD) 32 (>60 ml/min/1.73 sqM); Potassium 4.5 mmol/L (3.5-5.1); Sodium 136 mmol/L (137-145)
[2023-03-16 11:32] LABS: Basophils % (A) 0 %; Eosinophils # (A) 0.3 k/uL (0-0.7); Eosinophils % (A) 4 %; HCT 41.9 % (34.0-46.0); HGB 13.6 gm/dL (11.4-16.0); Hypochromasia Moderate; Lymphocytes # (A) 1.2 k/uL (1.0-4.8); Lymphocytes % (A) 13 %; MCH 31.7 pg (25.0-35.0); MCHC 32.5 g/dL (31.0-37.0); MCV 97.7 fL (80.0-100.0); Mean Platelet Volume 8.9; Monocytes # (A) 0.6 k/uL (0-1.0); Monocytes % (A) 7 %; Neutrophils # (A) 7.2 k/uL (1.3-7.7); Neutrophils % (A) 76 %; Platelet Count 173 k/uL (150-450); RBC 4.29 m/uL (3.80-5.40); RDW 13.7 % (11.5-15.5); WBC 9.5 k/uL (3.8-10.6)
[2023-03-16 12:00] LABS: Glucose,Whole Blood 155 mg/dL (70-110)
[2023-03-16 16:46] LABS: Glucose,Whole Blood 179 mg/dL (70-110)
[2023-03-16 20:07] LABS: Glucose,Whole Blood 258 mg/dL (70-110)
[2023-03-16] MEDS: LATANOPROST 0.005% OPHTH DROPS 2.5 ML BTL BOTH EYES SCH (20:08)
[2023-03-16] MEDS: MONTELUKAST 10 MG TAB PO SCH (20:08)
[2023-03-16] MEDS: ATORVASTATIN 20 MG TAB PO SCH (20:08)
[2023-03-16] MEDS: INSULIN DETEMIR (LEVEMIR) 100 UNIT/ML SYR SQ SCH (20:09)
--- NOTE | 2023-03-17 01:55 | P.PN ---
Subjective Progress Note Date: 03/16/23 Patient is a 78-year-old female with a known history of hypertension, hyperlipidemia, diabetes type 2 insulin-dependent, diabetic peripheral neuropathy, obstructive sleep apnea on CPAP, CKD stage III and a prior history of smoking presents to ER with complaints of worsening bilateral leg swelling and exertional dyspnea. Patient has been having symptoms for the past couple of weeks and gradually getting worse. Denies any complaints of chest pain. No cough or sputum production. No fever no chills. Patient had echocardiogram in September 2021 showed ejection fraction 55 to 60% with moderate left ventricular concentric hypertrophy. Chest x-ray showed cardiomegaly and mild pulmonary vascular congestion. Correlate with BNP for congestive heart failure. EKG showed sinus rhythm with low QRS voltages. Laboratory data showed sodium 138 potassium 4.7 chloride 98 bicarb is 32 BUN 39 creatinine 1.68 and blood sugar is 91. Liver Lisa not elevated. Troponin x3 negative and proBNP is 784. 03/16/2023 Patient is currently lying in the bed. Awake alert and oriented x3. Breathing status is better today. Currently on 2 L oxygen via nasal cannula which is her home regimen. Leg swelling is much improved. Patient is on 40 mg IV Lasix q. 8 hourly. No cough or sputum production. No complaints of nausea or vomiting. Able to tolerate oral diet. Laboratory data showed WBC 9.5 hemoglobin 13.6 and platelets 173 Sodium 136 potassium 4.5 chloride 97 bicarb is 33 BUN 42, creatinine 1.52 and blood sugar is 170. Calcium 9.1. Current medications reviewed. Objective - Vital Signs Vital signs: Vital Signs Temp 97.8 F 03/16/23 08:04 Pulse 60 03/16/23 19:44 Resp 18 03/16/23 17:04 BP 166/71 03/16/23 17:04 Pulse Ox 95 03/16/23 17:04 FiO2 Intake & Output 03/16/23 03/16/23 03/17/23 06:59 18:59 06:59 Intake Total 1080 478 Output Total 350 1050 250 Balance 730 -572 -250 Weight 120.2 kg Intake: Oral 1080 478 Output: Urine 350 1050 250 Other: Voiding Method Toilet Toilet # Voids 2 1 - Exam PHYSICAL EXAMINATION: Patient is lying in the bed comfortably, no acute distress, awake alert and oriented.. HEENT: Normocephalic. Neck is supple. Pupils reactive. Nostrils clear. Oral cavity is moist. Neck reveals no JVD, carotid bruits, or thyromegaly. CHEST EXAMINATION: Trachea is central. Symmetrical expansion. Minimal right bibasilar crackles and no wheezing or rhonchi. CARDIAC: Normal S1, S2 with no gallops. No murmurs ABDOMEN: Soft. Bowel sounds present. Nontender. No organomegaly. No abdominal bruits. Extremities: 2+ bilateral pedal edema. No clubbing or cyanosis Neurologically awake, alert, oriented x3 with well-coordinated movements. No focal deficits noted Skin: No rash or skin lesions. Psychiatric: Coperative. Nonsuicidal, Musculoskeletal: No joint swelling or deformity. Normal range of motion. - Labs CBC & Chem 7: 03/16/23 10:37 03/16/23 10:37 Labs: Abnormal Lab Results - Last 24 Hours (Table) 03/16/23 03/16/23 03/16/23 Range/Units 03:02 05:34 10:37 Sodium 136 L (137-145) mmol/L Chloride 97 L (98-107) mmol/L Carbon Dioxide 33 H (22-30) mmol/L BUN 42 H (7-17) mg/dL Creatinine 1.52 H (0.52-1.04) mg/dL Glucose 170 H (74-99) mg/dL POC Glucose (mg/dL) 52 L 65 L (70-110) mg/dL 03/16/23 03/16/23 Range/Units 11:59 16:44 Sodium (137-145) mmol/L Chloride (98-107) mmol/L Carbon Dioxide (22-30) mmol/L BUN (7-17) mg/dL Creatinine (0.52-1.04) mg/dL Glucose (74-99) mg/dL POC Glucose (mg/dL) 155 H 179 H (70-110) mg/dL Assessment and Plan Assessment: Acute on chronic CHF with preserved ejection fraction CKD stage IV with volume overload Bilateral leg swelling and exertional dyspnea Hypertension Diabetes type 2 insulin-dependent Hypothyroidism Bilateral peripheral neuropathy Obstructive sleep apnea on CPAP at home Chronic low back pain Hyperlipidemia Morbid obesity BMI 50.3 Prior history of smoking DVT prophylaxis. Patient is already on Eliquis. Plan: Patient will continue on telemetry monitoring. Continue with IV Lasix 40 mg every 8 hourly-->Q12. c/w aspirin, statin and patient is also on Toprol-XL 50 mg daily. Cardiology consult for evaluation. Monitor renal function closely. Continue with home medications including Synthroid and insulin regimen and titrate dose as needed. Continue with breathing treatments Prognosis guarded with multiple medical problems and comorbid conditions. PT/OT consult Time with Patient: Greater than 30
[2023-03-17] MEDS: LEVOTHYROXINE 50 MCG TAB PO SCH (06:04)
[2023-03-17] MEDS: INSULIN ASPART (NovoLOG) 100 UNIT/ML VIAL SQ SCH ×4 (06:05→20:55)
[2023-03-17 06:07] LABS: Glucose,Whole Blood 92 mg/dL (70-110)
[2023-03-17] MEDS: BUDESONIDE 0.5 MG/2 ML NEBU INHALATION SCH ×2 (07:58→19:39)
[2023-03-17] MEDS: IPRATROPIUM-ALBUTEROL 3 ML NEB INHALATION SCH ×2 (07:58→19:39)
[2023-03-17 08:07] LABS: Basophils # (A) 0.1 k/uL (0-0.2); Basophils % (A) 1 %; Eosinophils # (A) 0.4 k/uL (0-0.7); Eosinophils % (A) 5 %; HCT 46.7 % (34.0-46.0); HGB 14.1 gm/dL (11.4-16.0); Hypochromasia Moderate; Lymphocytes # (A) 1.9 k/uL (1.0-4.8); Lymphocytes % (A) 20 %; MCH 29.7 pg (25.0-35.0); MCHC 30.2 g/dL (31.0-37.0); MCV 98.2 fL (80.0-100.0); Mean Platelet Volume 9.3; Monocytes # (A) 0.6 k/uL (0-1.0); Monocytes % (A) 6 %; Neutrophils # (A) 6.4 k/uL (1.3-7.7); Neutrophils % (A) 67 %; Platelet Count 239 k/uL (150-450); RBC 4.76 m/uL (3.80-5.40); RDW 13.6 % (11.5-15.5); WBC 9.5 k/uL (3.8-10.6)
[2023-03-17 08:36] LABS: African American GFR (CKD) 33 (>60 ml/min/1.73 sqM); Blood Urea Nitrogen 42 mg/dL (7-17); Calcium 9.2 mg/dL (8.4-10.2); Chloride 94 mmol/L (98-107); Glucose 122 mg/dL (74-99); Non-African American GFR(CKD) 28 (>60 ml/min/1.73 sqM); Potassium 4.2 mmol/L (3.5-5.1); Sodium 139 mmol/L (137-145)
[2023-03-17 08:44] LABS: Anion Gap 10 mmol/L
[2023-03-17] MEDS: APIXABAN 5 MG TAB PO SCH ×2 (09:18→20:41)
[2023-03-17] MEDS: SPIRONOLACTONE 25 MG TAB PO SCH (09:18)
[2023-03-17] MEDS: METOPROLOL SUCCINATE (ER) 50 MG TAB.ER.24H PO SCH (09:18)
[2023-03-17] MEDS: amLODIPine 10 MG TAB PO SCH (09:18)
[2023-03-17] MEDS: allopurinoL 300 MG TAB PO SCH (09:18)
[2023-03-17] MEDS: NITROGLYCERIN OINT 1 INCH/GM PACKET TOPICAL SCH (09:18)
[2023-03-17] MEDS: FUROSEMIDE 10 MG/ML 4 ML VIAL IV SCH ×2 (09:19→20:41)
[2023-03-17] MEDS: ASPIRIN 81 MG PO SCH ×2 (09:19→20:41)
[2023-03-17 09:20] LABS: Carbon Dioxide 35 mmol/L (22-30)
[2023-03-17] MEDS: CHOLECALCIFEROL 25 MCG (1000 IU) TABLET PO SCH (09:20)
[2023-03-17 12:02] LABS: Glucose,Whole Blood 300 mg/dL (70-110)
[2023-03-17 12:59] VITALS: BMI 49.6
--- NOTE | 2023-03-17 13:27 | P.PN ---
Subjective HISTORY OF PRESENT ILLNESS: The patient is a very pleasant 78-year-old female patient who sees Dr. Mancilla regularly with a past medical history significant for morbid obesity as well as sleep apnea as well as congestive heart failure and also paroxysmal atrial fibrillation and diabetes and hypertension and dyslipidemia. Beside that she also does have chronic kidney disease. The patient presented to the hospital with 3 weeks history of progressive exertional dyspnea associated with bilateral lower extremity edema was no symptoms of chest pain or chest discomfort and no dizziness or lightheadedness and no presyncope or syncope and no heart racing or fluttering. She stated that she has been compliant with her medications. At home she was receiving Lasix and Aldactone. She stated that she was taking the medication religiously and also she has been compliant was low sodium diet. She was found to be in heart failure. She was hypoxic when she presented to the hospital and also she was in severe bilateral lower extremity is edema. She was started on Lasix and she was admitted to the hospital for further evaluation. She underwent a chest x-ray which showed pulmonary vascular congestion and NT proBNP came in to be about 800 only and she is overweight. The kidney function is a slightly abnormal with creatinine of 1.68 which is her baseline. The EKG showed sinus mechanism was low voltage QRS. The rest of the blood work including sodium, potassium came in to be unremarkable and hemoglobin came in to be unremarkable. Currently the patient is on Lasix IV. The last echo was performed in 2021 showing normal LV systolic function was no significant valvular abnormalities 03/17/2023 Patient examined this morning at the bedside. Patient denies chest pain or pressure. She continues to report shortness of breath with exertion. She states she feels short of breath whenever her oxygen is removed. She remains on IV Lasix. Creatinine today 1.7, up from 1.5. Most recent echocardiogram revealed ejection fraction 55-60%. Repeat echo is currently pending. PHYSICAL EXAM: VITAL SIGNS: Reviewed. GENERAL: Well-developed in no acute distress. NECK: Supple. No JVD or thyromegaly LUNGS: Respirations even and unlabored. Lungs diminished to auscultation bilat erally. HEART: Regular rate and rhythm. S1 and S2 heard. Systolic murmur noted EXTREMITIES: Normal range of motion. No clubbing or cyanosis. Peripheral pulses intact. No lower extremity edema ASSESSMENT: Shortness of breath Acute on chronic heart failure with reserved ejection fraction Acute hypoxic respiratory failure Hypertension Hyperlipidemia Chronic kidney disease Morbid obesity Obstructive sleep apnea PLAN: Continue current cardiac medications Continue IV Lasix. Possible transition to oral dosing tomorrow Daily weights, accurate I&O, and monitoring of kidney function Wean oxygen as tolerated Await results of echocardiogram Patient to follow-up post discharge with Dr. Lakhani Further recommendations pending patient's course Nurse practitioner note has been reviewed by physician. Signing provider agrees with the documented findings, assessment, and plan of care. Objective - Vital Signs Vital signs: Vital Signs Temp 97.8 F 03/17/23 08:00 Pulse 62 03/17/23 08:10 Resp 16 03/17/23 08:00 BP 147/65 03/17/23 08:00 Pulse Ox 92 L 03/17/23 08:00 FiO2 Intake & Output 03/16/23 03/17/23 03/17/23 18:59 06:59 18:59 Intake Total 478 300 298 Output Total 1050 850 Balance -572 -550 298 Weight 123 kg 123 kg Intake: Oral 478 300 298 Output: Urine 1050 850 Other: Voiding Method Toilet Toilet Toilet # Voids 1 2 - Labs CBC & Chem 7: 03/17/23 07:29 03/17/23 07:29 Labs: Abnormal Lab Results - Last 24 Hours (Table) 03/16/23 03/16/23 03/17/23 Range/Units 16:44 20:05 07:29 Hct 46.7 H (34.0-46.0) % MCHC 30.2 L (31.0-37.0) g/dL Chloride (98-107) mmol/L Carbon Dioxide (22-30) mmol/L BUN (7-17) mg/dL Creatinine (0.52-1.04) mg/dL Glucose (74-99) mg/dL POC Glucose (mg/dL) 179 H 258 H (70-110) mg/dL 03/17/23 03/17/23 Range/Units 07:29 12:01 Hct (34.0-46.0) % MCHC (31.0-37.0) g/dL Chloride 94 L (98-107) mmol/L Carbon Dioxide 35 H (22-30) mmol/L BUN 42 H (7-17) mg/dL Creatinine 1.70 H (0.52-1.04) mg/dL Glucose 122 H (74-99) mg/dL POC Glucose (mg/dL) 300 H (70-110) mg/dL
[2023-03-17 16:11] LABS: Glucose,Whole Blood 158 mg/dL (70-110)
--- NOTE | 2023-03-17 17:19 | CA ---
Transthoracic Echo Report Name: Óscar Valadez Age: 78 Gender: F : 1945 Exam Date: 03/17/2023 08:43 Exam Location: [place] [facility] Ht (in): 62 Wt (lb): 271 Ordering Physician: Palomo Moise MD ([id number]) Attending/Referring Phys: Head Sampler Lucy Rea [facility] Procedure CPT: Indications: chf Cardiac Hx: Technical Quality: Technically difficult study Contrast 1: Lumason Total Dose (mL): 5 Contrast 2: Total Dose (mL): MEASUREMENTS (Male / Female) Normal Values 2D ECHO LV Diastolic Diameter PLAX 4.8 cm 4.2 - 5.9 / 3.9 - 5.3 cm LV Systolic Diameter PLAX 3.7 cm IVS Diastolic Thickness 1.1 cm 0.6 - 1.0 / 0.6 - 0.9 cm LVPW Diastolic Thickness 1.2 cm 0.6 - 1.0 / 0.6 - 0.9 cm LV Relative Wall Thickness 0.5 LVOT Diameter 2.0 cm Ascending Aorta Diameter 3.5 cm M-MODE Aortic Root Diameter MM 2.8 cm LA Systolic Diameter MM 4.3 cm LA Ao Ratio MM 1.5 AV Cusp Separation MM 1.9 cm DOPPLER AV Peak Velocity 185.9 cm/s AV Peak Gradient 13.8 mmHg AV Mean Velocity 126.7 cm/s AV Mean Gradient 7.3 mmHg AV Velocity Time Integral 42.5 cm LVOT Peak Velocity 103.0 cm/s LVOT Peak Gradient 4.2 mmHg LVOT Velocity Time Integral 29.9 cm LVOT Stroke Volume 96.2 cm??? LVOT Stroke Volume Index 44.2 ml/m??? LVOT Cardiac Index 2447.7 cm???/min???m??? AV Area Cont Eq vti 2.3 cm??? AV Area Cont Eq pk 1.8 cm??? Mitral E Point Velocity 131.1 cm/s Mitral A Point Velocity 112.8 cm/s Mitral E to A Ratio 1.2 MV Deceleration Time 304.0 ms LV E' Lateral Velocity 6.2 cm/s Mitral E to LV E' Lateral Ratio 21.1 LV E' Septal Velocity 5.8 cm/s Mitral E to LV E' Septal Ratio 22.6 TR Peak Velocity 210.4 cm/s TR Peak Gradient 17.7 mmHg Right Atrial Pressure 8.0 mmHg Pulmonary Artery Systolic Pressu 25.7 mmHg Right Ventricular Systolic Press 25.7 mmHg FINDINGS Left Ventricle Mildly increased left ventricular wall thickness. Left ventricular cavity size at the upper limits of normal. No obvious regional wall motion abnormalities. Left ventricular ejection fraction is estimated at 55-60%. Right Ventricle Right ventricle not well visualized. Right Atrium Right atrium not well visualized. Left Atrium Normal left atrial size. Mitral Valve Structurally normal mitral valve. Mitral valve thickened. Trace mitral regurgitation. Aortic Valve Aortic valve not well visualized. Aortic valve sclerosis. Diffuse thickening (sclerosis) of the aortic valve cusps without reduced excursion. No aortic regurgitation. Tricuspid Valve Tricuspid valve not well visualized. Trace tricuspid regurgitation. Pulmonic Valve Structurally normal pulmonic valve. Mild pulmonic regurgitation. Pericardium Echo free space anterior to the right ventricle likely represents a fat pad. Aorta Normal size aortic root and proximal ascending aorta. CONCLUSIONS Normal LV function thickened aortic valve leaflets are poorly visualized Mild aortic stenosis Previewed by: Dr. Bib Lakhani MD (Electronically Signed) Final Date: 17 March 2023 17:18
[2023-03-17 19:56] LABS: Glucose,Whole Blood 126 mg/dL (70-110)
--- NOTE | 2023-03-17 20:24 | PN ---
PROGRESS NOTE DATE OF SERVICE: 03/17/2023 SUBJECTIVE: This 78-year-old woman is admitted with CHF acute exacerbation, on IV Lasix. No chest pain. No palpitation. OBJECTIVE: VITAL SIGNS: Pulse is 53, blood pressure 110/64, respirations 18. CHEST: A few scattered rhonchi. ABDOMEN: Soft. LEGS: Minimal edema. LABORATORY DATA: Noted. ASSESSMENT: 1. Congestive heart failure acute exacerbation. 2. Acute on chronic diastolic dysfunction. 3. Chronic kidney disease, stage 4. 4. Bilateral leg pain. 5. Hypertension. 6. Multiple medical issues. RECOMMENDATIONS: Recommend to continue current management. Continue symptomatic treatment. Continue with diuretics. Repeat labs. Closely follow. Further recommendations to follow. Follow with Cardiology. Prognosis guarded. MMODL / IJN: [id number] /
[2023-03-17] MEDS: ATORVASTATIN 20 MG TAB PO SCH (20:41)
[2023-03-17] MEDS: MONTELUKAST 10 MG TAB PO SCH (20:41)
[2023-03-17] MEDS: LATANOPROST 0.005% OPHTH DROPS 2.5 ML BTL BOTH EYES SCH (20:42)
[2023-03-17] MEDS: INSULIN DETEMIR (LEVEMIR) 100 UNIT/ML SYR SQ SCH (20:55)
[2023-03-17] MEDS: TRIAMCINOLONE 0.1% CREAM 80 GM TUBE TOPICAL SCH (20:56)
[2023-03-17] MEDS ORDERED: FLUTICASONE 50MCG/SPRAY NASAL 16GM EA NOSTRIL SCH (21:00)
[2023-03-18 07:08] LABS: Glucose,Whole Blood 99 mg/dL (70-110)
[2023-03-18] MEDS: LEVOTHYROXINE 50 MCG TAB PO SCH (07:23)
[2023-03-18] MEDS: INSULIN ASPART (NovoLOG) 100 UNIT/ML VIAL SQ SCH (07:24)
[2023-03-18] MEDS ORDERED: CALCIUM ACETATE 667 MG TAB PO SCH (07:30)
[2023-03-18] MEDS: METOPROLOL SUCCINATE (ER) 50 MG TAB.ER.24H PO SCH (08:29)
[2023-03-18] MEDS: SPIRONOLACTONE 25 MG TAB PO SCH (08:29)
[2023-03-18] MEDS: CHOLECALCIFEROL 25 MCG (1000 IU) TABLET PO SCH (08:29)
[2023-03-18] MEDS: APIXABAN 5 MG TAB PO SCH (08:29)
[2023-03-18] MEDS: FUROSEMIDE 10 MG/ML 4 ML VIAL IV SCH (08:29)
[2023-03-18] MEDS: allopurinoL 300 MG TAB PO SCH (08:29)
[2023-03-18] MEDS: amLODIPine 10 MG TAB PO SCH (08:29)
[2023-03-18] MEDS: TRIAMCINOLONE 0.1% CREAM 80 GM TUBE TOPICAL SCH (08:38)
[2023-03-18 08:39] VITALS: BP 117/72; PULSE 57; RESP 18; TEMP 97.7
[2023-03-18] MEDS ORDERED: PSYLLIUM HUSK 100% 6 GM PACKET PO SCH (09:00)
[2023-03-18] MEDS ORDERED: DAPAGLIFLOZIN PROPANEDIOL 10 MG TABLET PO SCH (09:00)
[2023-03-18] MEDS ORDERED: MAGNESIUM OXIDE 400 MG TAB PO SCH (09:00)
[2023-03-18] MEDS ORDERED: LORATADINE 10 MG TAB PO SCH (09:00)
[2023-03-18] MEDS ORDERED: ZINC SULFATE 220 MG CAP PO SCH (09:00)
[2023-03-18 09:39] LABS: Basophils % (A) 0 %; Eosinophils # (A) 0.4 k/uL (0-0.7); Eosinophils % (A) 5 %; HCT 43.7 % (34.0-46.0); HGB 13.3 gm/dL (11.4-16.0); Hypochromasia Slight; Lymphocytes # (A) 1.6 k/uL (1.0-4.8); Lymphocytes % (A) 18 %; MCH 29.8 pg (25.0-35.0); MCHC 30.4 g/dL (31.0-37.0); Mean Platelet Volume 9.2; Monocytes # (A) 0.6 k/uL (0-1.0); Monocytes % (A) 7 %; Neutrophils # (A) 6.1 k/uL (1.3-7.7); Neutrophils % (A) 69 %; Platelet Count 216 k/uL (150-450); RBC 4.46 m/uL (3.80-5.40); RDW 13.6 % (11.5-15.5); WBC 8.9 k/uL (3.8-10.6)
[2023-03-18] MEDS: BUDESONIDE 0.5 MG/2 ML NEBU INHALATION SCH (10:36)
[2023-03-18] MEDS: IPRATROPIUM-ALBUTEROL 3 ML NEB INHALATION SCH (10:37)
[2023-03-18 10:50] LABS: African American GFR (CKD) 33 (>60 ml/min/1.73 sqM); Anion Gap 6 mmol/L; Blood Urea Nitrogen 45 mg/dL (7-17); Calcium 9.1 mg/dL (8.4-10.2); Carbon Dioxide 38 mmol/L (22-30); Chloride 95 mmol/L (98-107); Glucose 117 mg/dL (74-99); Non-African American GFR(CKD) 28 (>60 ml/min/1.73 sqM); Potassium 4.3 mmol/L (3.5-5.1); Sodium 139 mmol/L (137-145)
[2023-03-18 12:04] LABS: Glucose,Whole Blood 105 mg/dL (70-110)
--- NOTE | 2023-03-18 13:02 | P.PN ---
Subjective Progress Note Date: 03/18/23 HISTORY OF PRESENT ILLNESS: The patient is a very pleasant 78-year-old female patient who sees Dr. Mancilla regularly with a past medical history significant for morbid obesity as well as sleep apnea as well as congestive heart failure and also paroxysmal atrial fibrillation and diabetes and hypertension and dyslipidemia. Beside that she also does have chronic kidney disease. The patient presented to the hospital with 3 weeks history of progressive exertional dyspnea associated with bilateral lower extremity edema was no symptoms of chest pain or chest discomfort and no dizziness or lightheadedness and no presyncope or syncope and no heart racing or fluttering. She stated that she has been compliant with her medications. At home she was receiving Lasix and Aldactone. She stated that she was taking the medication religiously and also she has been compliant was low sodium diet. She was found to be in heart failure. She was hypoxic when she presented to the hospital and also she was in severe bilateral lower extremity is edema. She was started on Lasix and she was admitted to the hospital for further evaluation. She underwent a chest x-ray which showed pulmonary vascular congestion and NT proBNP came in to be about 800 only and she is overweight. The kidney function is a slightly abnormal with creatinine of 1.68 which is her baseline. The EKG showed sinus mechanism was low voltage QRS. The rest of the blood work including sodium, potassium came in to be unremarkable and hemoglobin came in to be unremarkable. Currently the patient is on Lasix IV. The last echo was performed in 2021 showing normal LV systolic function was no significant valvular abnormalities 03/17/2023 Patient examined this morning at the bedside. Patient denies chest pain or pressure. She continues to report shortness of breath with exertion. She state s she feels short of breath whenever her oxygen is removed. She remains on IV Lasix. Creatinine today 1.7, up from 1.5. Most recent echocardiogram revealed ejection fraction 55-60%. Repeat echo is currently pending. 03/18/2023 Patient examined this morning at the bedside. Patient denies any chest pain or pressure. She states her shortness of breath is about the same as yesterday. She reports having wheezing this morning. Echocardiogram performed revealed ejection fraction 55-60% with mild aortic stenosis. PHYSICAL EXAM: VITAL SIGNS: Reviewed. GENERAL: Well-developed in no acute distress. NECK: Supple. No JVD or thyromegaly LUNGS: Respirations even and unlabored. Lungs with expiratory wheezing noted. HEART: Regular rate and rhythm. S1 and S2 heard. Systolic murmur noted EXTREMITIES: Normal range of motion. No clubbing or cyanosis. Peripheral pulses intact. No lower extremity edema ASSESSMENT: Shortness of breath Acute on chronic heart failure with reserved ejection fraction Acute hypoxic respiratory failure Hypertension Hyperlipidemia Chronic kidney disease Morbid obesity Obstructive sleep apnea PLAN: Continue current cardiac medications Discontinue IV Lasix. Resume oral Lasix 40 mg twice a day Daily weights, accurate I&O, and monitoring of kidney function Wean oxygen as tolerated Patient to follow-up post discharge with Dr. Lakhani Further recommendations pending patient's course Nurse practitioner note has been reviewed by physician. Signing provider agrees with the documented findings, assessment, and plan of care. Objective - Vital Signs Vital signs: Vital Signs Temp 97.7 F 03/18/23 08:00 Pulse 57 L 03/18/23 08:00 Resp 18 03/18/23 08:00 BP 117/72 03/18/23 08:00 Pulse Ox 95 03/18/23 08:00 FiO2 Intake & Output 03/17/23 03/18/23 03/18/23 18:59 06:59 18:59 Intake Total 416 940 120 Output Total 600 Balance 416 340 120 Weight 123 kg 122.9 kg Intake: Oral 416 940 120 Output: Urine 600 Other: Voiding Method Toilet Toilet Toilet # Voids 2 1 - Labs CBC & Chem 7: 03/18/23 08:43 03/18/23 08:43 Labs: Abnormal Lab Results - Last 24 Hours (Table) 03/17/23 03/17/23 03/18/23 Range/Units 16:10 19:48 08:43 MCHC 30.4 L (31.0-37.0) g/dL Chloride (98-107) mmol/L Carbon Dioxide (22-30) mmol/L BUN (7-17) mg/dL Creatinine (0.52-1.04) mg/dL Glucose (74-99) mg/dL POC Glucose (mg/dL) 158 H 126 H (70-110) mg/dL 03/18/23 Range/Units 08:43 MCHC (31.0-37.0) g/dL Chloride 95 L (98-107) mmol/L Carbon Dioxide 38 H (22-30) mmol/L BUN 45 H (7-17) mg/dL Creatinine 1.70 H (0.52-1.04) mg/dL Glucose 117 H (74-99) mg/dL POC Glucose (mg/dL) (70-110) mg/dL
[2023-03-18] MEDS ORDERED: FUROSEMIDE 40 MG TAB PO SCH (16:00)
--- NOTE | 2023-03-19 09:25 | P.DS ---
Providers Date of admission: 03/15/23 14:13 Expected date of discharge: 03/18/23 Attending physician: Georgia Villalobos Consults: 03/15/23 14:12 Consult Physician Routine Consulting Provider: Palomo Moise Consult Reason/Comments: chf Do you want consulting provider notified?: Yes Primary care physician: Orion Benjamin Hospital Course: Final diagnosis Congestive heart failure acute exacerbation Acute on chronic diastolic dysfunction Acute on chronic hypoxic respiratory failure secondary to CHF exacerbation chronic kidney disease stage IV Bilateral leg pain Hypertension Morbid obesity with a BMI of 49.6 GI prophylaxis DVT prophylaxis Full code Discharge disposition Patient is being discharged in a stable condition with guarded prognosis to home. Patient will follow-up with Dr. Benjamin in the outpatient setting upon discharge. Patient is to continue with oral Lasix and outpatient follow-up with labs and cardiology as scheduled. Total time taken is greater than 35 minutes. Hospital course This is a 78-year-old female who was recently admitted with increasing shortness of breath CHF exacerbation being closely monitored. Patient was diuresed on IV Lasix with cardiology following. Patient does wear oxygen in the outpatient setting at 2 L to manage her CHF. Patient has been cleared by consultations for discharge home and instructed to follow-up with cardiology as well as primary care provider outpatient. Please refer to other consultation notes for further HPI. Currently no reports of chest pain, shortness of breath, or palpitations. Patient is afebrile. No reports of nausea or vomiting and patient is tolerating diet. Patient will be discharged home today. Guarded prognosis. Physical exam: Gen: This is a 78-year-old female who is awake, alert and oriented 3, well- developed, well-nourished, morbidly obese HEENT: Head is atraumatic, normocephalic. Pupils equal, round. Sclerae is anicteric. NECK: Supple. No JVD. No lymphadenopathy. No thyromegaly. LUNGS: Breath sounds diminished bilaterally with no wheezes or rhonchi. No intercostal retractions. HEART: S1, S2 are muffled ABDOMEN: Soft. obese. Bowel sounds are present. No masses. No tenderness. EXTREMITIES: No pedal edema. No calf tenderness. generalized edema noted bilaterally, nonpitting NEUROLOGICAL: Patient is awake, alert and oriented x3. Cranial nerves 2 through 12 are grossly intact. Please refer to medication reconciliation sheet for a list of medications. The impression and plan of care has been dictated by Dora Garcia, Nurse Practitioner as directed. Dr. Rafael MD I have performed a history and examination and MDM of this patient, discussed the same with the dictator, and agree with the dictator's assessment and plan as written ,documented as a scribe. Based on total visit time, I have performed more than 50% of the visit. Patient Condition at Discharge: Stable Plan - Discharge Summary Discharge Rx Participant: Yes New Discharge Prescriptions: New Ipratropium-Albuterol Nebulize [Duoneb 0.5 mg-3 mg/3 ml Soln] 3 ml INHALATION RT-Q2H PRN each PRN Reason: Shortness Of Breath Or Wheezing Dapagliflozin Propanediol [Farxiga] 10 mg PO DAILY #30 tab Continue Simvastatin [Zocor] 40 mg PO HS Aspirin EC [Ecotrin Low Dose] 81 mg PO DIRECTED allopurinoL [Zyloprim] 150 mg PO DAILY INSULIN ASPART (NovoLOG) [NovoLOG (formulary)] 9 unit SQ ACHS Furosemide [Lasix] 40 mg PO BID calcitrioL [Rocaltrol] 0.25 mcg PO MOWEFR Albuterol Nebulized [Ventolin Nebulized] 2.5 mg INHALATION RT-BID Spironolactone 50 mg PO DAILY Latanoprost [Xalatan 0.005%] 2 drops BOTH EYES HS Fluticasone Nasal [place] [Flonase Nasal [place]] 2 spr EA NOSTRIL HS Ipratropium Nebulized [Atrovent Nebulized 0.2 MG/ML] 0.5 mg INHALATION RT-BID Magnesium 250 mg PO DAILY Calcium Carbonate [Calcium] 600 mg PO DAILY Cranberry 4200mg 1 tab PO DAILY Calcium Acetate 667mg Caps 1 cap PO DAILY Ipratropium Nebulized [Atrovent Nebulized 0.2 MG/ML] 0.5 mg INHALATION RT-BID PRN PRN Reason: Shortness Of Breath Garlic 1 tab PO DAILY Budesonide [Pulmicort] 0.5 mg INHALATION RT-BID Apixaban [Eliquis] 5 mg PO BID amLODIPine [Norvasc] 10 mg PO DAILY Montelukast [Singulair] 10 mg PO HS Metoprolol Succinate (ER) [Toprol XL] 50 mg PO DAILY HYDROcodone/APAP 7.5-325MG [[place] 7.5-325] 1 tab PO Q6H PRN PRN Reason: Pain Triamcinolone 0.025% Cream [Kenalog 0.025% Cream] 1 applic TOPICAL BID Zinc Gluconate [Zinc] 50 mg PO DAILY [place]-3 Fatty Acids/Fish Oil [[place]-3 Fish Oil 1,200 mg Sfgl] 1 cap PO BID Cholecalciferol [Vitamin D3 (25 Mcg = 1000 Iu)] 25 mcg PO DAILY Loratadine [Claritin] 10 mg PO DAILY Levothyroxine Sodium [Synthroid] 50 mcg PO DAILY Insulin Glargine,Hum.rec.anlog [Lantus Solostar Pen] 50 units SQ HS Albuterol Nebulized [Ventolin Nebulized] 2.5 mg INHALATION RT-BID PRN PRN Reason: Shortness Of Breath Psyllium Husk (with Sugar) [Metamucil Powder] 6 gm PO DAILY Discharge Medication List Albuterol Nebulized [Ventolin Nebulized] 2.5 mg INHALATION RT-BID 05/21/17 [History] Aspirin EC [Ecotrin Low Dose] 81 mg PO DIRECTED 05/21/17 [History] Furosemide [Lasix] 40 mg PO BID 05/21/17 [History] INSULIN ASPART (NovoLOG) [NovoLOG (formulary)] 9 unit SQ ACHS 05/21/17 [History] Simvastatin [Zocor] 40 mg PO HS 05/21/17 [History] allopurinoL [Zyloprim] 150 mg PO DAILY 05/21/17 [History] calcitrioL [Rocaltrol] 0.25 mcg PO MOWEFR 05/21/17 [History] Apixaban [Eliquis] 5 mg PO BID 09/27/21 [History] Budesonide [Pulmicort] 0.5 mg INHALATION RT-BID 09/27/21 [History] Fluticasone Nasal [place] [Flonase Nasal [place]] 2 spr EA NOSTRIL HS 09/27/21 [History] Garlic 1 tab PO DAILY 09/27/21 [History] Ipratropium Nebulized [Atrovent Nebulized 0.2 MG/ML] 0.5 mg INHALATION RT-BID 09/27/21 [History] Latanoprost [Xalatan 0.005%] 2 drops BOTH EYES HS 09/27/21 [History] Montelukast [Singulair] 10 mg PO HS 09/27/21 [History] Spironolactone 50 mg PO DAILY 09/27/21 [History] amLODIPine [Norvasc] 10 mg PO DAILY 09/27/21 [History] Albuterol Nebulized [Ventolin Nebulized] 2.5 mg INHALATION RT-BID PRN 03/15/23 [History] Calcium Acetate 667mg Caps 1 cap PO DAILY 03/15/23 [History] Calcium Carbonate [Calcium] 600 mg PO DAILY 03/15/23 [History] Cholecalciferol [Vitamin D3 (25 Mcg = 1000 Iu)] 25 mcg PO DAILY 03/15/23 [History] Cranberry 4200mg 1 tab PO DAILY 03/15/23 [History] HYDROcodone/APAP 7.5-325MG [[place] 7.5-325] 1 tab PO Q6H PRN 03/15/23 [History] Insulin Glargine,Hum.rec.anlog [Lantus Solostar Pen] 50 units SQ HS 03/15/23 [History] Ipratropium Nebulized [Atrovent Nebulized 0.2 MG/ML] 0.5 mg INHALATION RT-BID PRN 03/15/23 [History] Levothyroxine Sodium [Synthroid] 50 mcg PO DAILY 03/15/23 [History] Loratadine [Claritin] 10 mg PO DAILY 03/15/23 [History] Magnesium 250 mg PO DAILY 03/15/23 [History] Metoprolol Succinate (ER) [Toprol XL] 50 mg PO DAILY 03/15/23 [History] [place]-3 Fatty Acids/Fish Oil [[place]-3 Fish Oil 1,200 mg Sfgl] 1 cap PO BID 03/15/23 [History] Psyllium Husk (with Sugar) [Metamucil Powder] 6 gm PO DAILY 03/15/23 [History] Triamcinolone 0.025% Cream [Kenalog 0.025% Cream] 1 applic TOPICAL BID 03/15/23 [History] Zinc Gluconate [Zinc] 50 mg PO DAILY 03/15/23 [History] Dapagliflozin Propanediol [Farxiga] 10 mg PO DAILY #30 tab 03/18/23 [Rx] Ipratropium-Albuterol Nebulize [Duoneb 0.5 mg-3 mg/3 ml Soln] 3 ml INHALATION RT-Q2H PRN each 03/18/23 [Rx] Follow up Appointment(s)/Referral(s): Orion Benjamin MD [Primary Care Provider] - 03/25/23 8:45 am Bib Lakhani MD [STAFF PHYSICIAN] - 03/26/23 9:45 am Ambulatory/Diagnostic Orders: Basic Metabolic Panel [LAB.AMB] Time Frame: 3 Days, Location: None Selected Patient Instructions/Handouts: Heart Failure (DC) Activity/Diet/Wound Care/Special Instructions: Activity Limited until follow-up Follow-up with primary care provider on discharge Follow-up with cardiology outpatient in 1-2 weeks Continue medications as prescribed Continue 2 L via nasal cannula Recommend repeat labs to monitor kidney functions next 2-3 days Discharge Disposition: HOME SELF-CARE
== END 2023-03-18 12:27 | disposition home or self-care (01) | DRG 291 ==
LOC: EC 11:44 → 3SCARD 14:13
PROVIDERS: ADMIT Internal Medicine; ATTEND Internal Medicine
DX: I13.0 Hypertensive heart and chronic kidney disease with heart failure and stage 1 through stage 4 chronic kidney disease, or unspecified chronic kidney disease (principal); I50.33 Acute on chronic diastolic (congestive) heart failure; J96.21 Acute and chronic respiratory failure with hypoxia; N18.4 Chronic kidney disease, stage 4 (severe); Z68.42 Body mass index [BMI] 45.0-49.9, adult; G47.33 Obstructive sleep apnea (adult) (pediatric); G89.29 Other chronic pain; M79.604 Pain in right leg; M54.50 Low back pain, unspecified; M25.511 Pain in right shoulder; E03.9 Hypothyroidism, unspecified; M79.605 Pain in left leg; E11.22 Type 2 diabetes mellitus with diabetic chronic kidney disease; E11.42 Type 2 diabetes mellitus with diabetic polyneuropathy; E66.01 Morbid (severe) obesity due to excess calories; E78.5 Hyperlipidemia, unspecified; Z87.891 Personal history of nicotine dependence; I48.0 Paroxysmal atrial fibrillation; Z60.2 Problems related to living alone; Z79.01 Long term (current) use of anticoagulants; Z79.4 Long term (current) use of insulin; Z79.890 Hormone replacement therapy; Z79.899 Other long term (current) drug therapy; Z82.49 Family history of ischemic heart disease and other diseases of the circulatory system; Z71.3 Dietary counseling and surveillance; Z86.010 Personal history of colon polyps; Z87.440 Personal history of urinary (tract) infections
CPT/HCPCS: 36415; 71046; 80048; 80053; 83605; 83735; 83880; 84484; 85025; 85610; 85730; 93005; 93306; 94640; 94760; 96374; 99285

== ENCOUNTER 2023-07-12 10:31 | Emergency (ER) | payer MEDICARE, OTHER ==
--- NOTE | 2023-07-12 11:25 | XR ---
EXAMINATION TYPE: XR foot complete RT DATE OF EXAM: 07/12/2023 11:07 AM CLINICAL INDICATION:Female, 78 years old with history of pain; COMPARISON: None TECHNIQUE: XR foot complete RT examined in the AP, oblique, and lateral projections. FINDINGS: No evidence of any acute osseous pathology. Degeneration changes worse at the first digit metatarsoph alangeal joint with hallux valgus deformity. No evidence of fracture. Atherosclerosis of the arterial vasculature. Calcaneal plantar spurring is present. Additional multifocal joint space narrowing oste ophyte of the joints of the foot. IMPRESSION: Hallux valgus with moderate degeneration changes at the first metatarsophalangeal joint.
[2023-07-12] MEDS ORDERED: SULFAMETH-TMP DS STARTER PACK 2 TAB BTL PO STA (12:45)
[2023-07-12] MEDS ORDERED: SULFAMETHOX-TMP 800-160MG 1 EACH TAB PO STA (12:45)
--- NOTE | 2023-07-12 12:47 | ED ---
Skin/Abscess/FB HPI - General Chief complaint: Skin/Abscess/Foreign Body Stated complaint: foot infection Time Seen by Provider: 07/12/23 10:41 Source: patient, RN notes reviewed Mode of arrival: wheelchair Limitations: no limitations - History of Present Illness Initial comments: 78-year-old female presents emergency Department with chief complaint of right foot injury, dysuria. Patient states that she had an injury few days ago. Patient also developed redness, concern for infection as she had slightly sent as she is known diabetic. There is some ecchymosis. Patient states she is not having initial swelling. Patient also states that she has cloudy urine, dysuria today. - Related Data Home Medications Medication Instructions Recorded Confirmed Albuterol Nebulized [Ventolin 2.5 mg INHALATION RT-BID 05/21/17 03/15/23 Nebulized] Aspirin EC [Ecotrin Low Dose] 81 mg PO DIRECTED 05/21/17 03/15/23 Furosemide [Lasix] 40 mg PO BID 05/21/17 03/15/23 INSULIN ASPART (NovoLOG) [NovoLOG 9 unit SQ ACHS 05/21/17 03/15/23 (formulary)] Simvastatin [Zocor] 40 mg PO HS 05/21/17 03/15/23 allopurinoL [Zyloprim] 150 mg PO DAILY 05/21/17 03/15/23 calcitrioL [Rocaltrol] 0.25 mcg PO MOWEFR 05/21/17 03/15/23 Apixaban [Eliquis] 5 mg PO BID 09/27/21 03/15/23 Budesonide [Pulmicort] 0.5 mg INHALATION RT-BID 09/27/21 03/15/23 Fluticasone Nasal [place] [Flonase 2 spr EA NOSTRIL HS 09/27/21 03/15/23 Nasal [place]] Garlic 1 tab PO DAILY 09/27/21 03/15/23 Ipratropium Nebulized [Atrovent 0.5 mg INHALATION RT-BID 09/27/21 03/15/23 Nebulized 0.2 MG/ML] Latanoprost [Xalatan 0.005%] 2 drops BOTH EYES HS 09/27/21 03/15/23 Montelukast [Singulair] 10 mg PO HS 09/27/21 03/15/23 Spironolactone 50 mg PO DAILY 09/27/21 03/15/23 amLODIPine [Norvasc] 10 mg PO DAILY 09/27/21 03/15/23 Albuterol Nebulized [Ventolin 2.5 mg INHALATION RT-BID PRN 03/15/23 03/15/23 Nebulized] Calcium Acetate 667mg Caps 1 cap PO DAILY 03/15/23 03/15/23 Calcium Carbonate [Calcium] 600 mg PO DAILY 03/15/23 03/15/23 Cholecalciferol [Vitamin D3 (25 25 mcg PO DAILY 03/15/23 03/15/23 Mcg = 1000 Iu)] Cranberry 4200mg 1 tab PO DAILY 03/15/23 03/15/23 HYDROcodone/APAP 7.5-325MG [[place] 1 tab PO Q6H PRN 03/15/23 03/15/23 7.5-325] Insulin Glargine,Hum.rec.anlog 50 units SQ HS 03/15/23 03/15/23 [Lantus Solostar Pen] Ipratropium Nebulized [Atrovent 0.5 mg INHALATION RT-BID PRN 03/15/23 03/15/23 Nebulized 0.2 MG/ML] Levothyroxine Sodium [Synthroid] 50 mcg PO DAILY 03/15/23 03/15/23 Loratadine [Claritin] 10 mg PO DAILY 03/15/23 03/15/23 Magnesium 250 mg PO DAILY 03/15/23 03/15/23 Metoprolol Succinate (ER) [Toprol 50 mg PO DAILY 03/15/23 03/15/23 XL] [place]-3 Fatty Acids/Fish Oil 1 cap PO BID 03/15/23 03/15/23 [[place]-3 Fish Oil 1,200 mg Sfgl] Psyllium Husk (with Sugar) 6 gm PO DAILY 03/15/23 03/15/23 [Metamucil Powder] Triamcinolone 0.025% Cream 1 applic TOPICAL BID 03/15/23 03/15/23 [Kenalog 0.025% Cream] Zinc Gluconate [Zinc] 50 mg PO DAILY 03/15/23 03/15/23 Previous Rx's Medication Instructions Recorded Dapagliflozin Propanediol [Farxiga] 10 mg PO DAILY #30 tab 03/18/23 Ipratropium-Albuterol Nebulize 3 ml INHALATION RT-Q2H PRN each 03/18/23 [Duoneb 0.5 mg-3 mg/3 ml Soln] Sulfamethox-Tmp 800-160Mg [Bactrim 1 each PO Q12HR #14 tab 07/12/23 Ds] Allergies Allergy/AdvReac Type Severity Reaction Status Date / Time No Known Allergies Allergy Verified 07/12/23 10:38 Review of Systems ROS Statement: Those systems with pertinent positive or pertinent negative responses have been documented in the HPI. ROS Other: All systems not noted in ROS Statement are negative. Past Medical History Past Medical History: Heart Failure, Diabetes Mellitus, Hyperlipidemia, Hypertension, Renal Disease, Respiratory Disorder Additional Past Medical History / Comment(s): IDDM type II, neuropathy L hand/bilateral feet, CKD stage IV, UTIs, pt states she has been told she has bilateral lung base scar tissue, DANIEL with Cpap/o2 2l/nc at hs, gout, chronic R shoulder pain for months, chronic low back pain/DDD, bilateral glaucoma, hypothy roid. History of Any Multi-Drug Resistant Organisms: None Reported Past Surgical History: Section Additional Past Surgical History / Comment(s): R carpal tunnel release, colonoscopy/benign polypectomies, R breast benign biopsy, D&C, bilateral cataract removals, 3 C-sections. Past Anesthesia/Blood Transfusion Reactions: No Reported Reaction Past Psychological History: No Psychological Hx Reported Smoking Status: Former smoker Past Alcohol Use History: None Reported Past Drug Use History: None Reported - Past Family History Father Family Medical History: Hypertension Additional Family Medical History / Comment(s): Possibly skin cancer. Mother Family Medical History: CVA/TIA, Hypertension Additional Family Medical History / Comment(s): Mother at the age of 59 yrs from a CVA. General Exam Limitations: no limitations General appearance: alert, in no apparent distress Head exam: Present: atraumatic, normocephalic, normal inspection Eye exam: Present: normal appearance, PERRL, EOMI. Absent: scleral icterus, conjunctival injection, periorbital swelling Respiratory exam: Present: normal lung sounds bilaterally. Absent: respiratory distress, wheezes, rales, rhonchi, stridor Cardiovascular Exam: Present: regular rate, normal rhythm, normal heart sounds. Absent: systolic murmur, diastolic murmur, rubs, gallop, clicks GI/Abdominal exam: Present: soft, normal bowel sounds. Absent: distended, tenderness, guarding, rebound, rigid Extremities exam: Present: other (Right foot dorsal aspect there is ecchymosis of the digits, erythema mid foot) Back exam: Absent: CVA tenderness (R), CVA tenderness (L) Course Vital Signs 07/12/23 07/12/23 10:32 13:10 Temperature 98.3 F 98 F Pulse Rate 71 74 Respiratory 20 22 Rate Blood Pressure 151/80 138/74 O2 Sat by Pulse 94 L 95 Oximetry Medical Decision Making - Medical Decision Making Was pt. sent in by a medical professional or institution (, PA, FOIL CUTTER, urgent care, hospital, or fpc...) When possible be specific @ -No Did you speak to anyone other than the patient for history (EMS, parent, family, police, friend...)? What history was obtained from this source @ -No Did you review nursing and triage notes (agree or disagree)? Why? @ -I reviewed and agree with nursing and triage notes Were old charts reviewed (outside hosp., previous admission, EMS record, old EKG, old radiological studies, urgent care reports/EKG's, fpc records)? Report findings @ -No old charts were reviewed Differential Diagnosis (chest pain, altered mental status, abdominal pain women, abdominal pain men, vaginal bleeding, weakness, fever, dyspnea, syncope, headache, dizziness, GI bleed, back pain, seizure, CVA, palpatations, mental health, musculoskeletal)? @ -Cellulitis, foot fracture, foot contusion EKG interpreted by me (3pts min.). @ -None X-rays interpreted by me (1pt min.). @ -X-ray of the foot shows no acute fracture CT interpreted by me (1pt min.). @ -None done U/S interpreted by me (1pt. min.). @ -None done What testing was considered but not performed or refused? (CT, X-rays, U/S, labs)? Why? @ -None What meds were considered but not given or refused? Why? @ -None Did you discuss the management of the patient with other professionals (professionals i.e. , [employer], FOIL CUTTER, lab, RT, psych nurse, clinical social work aide, hospital wellness coordinator, teacher, human resources officer, telephonic case manager)? Give summary @ -No Was smoking cessation discussed for >3mins.? @ -No Was critical care preformed (if so, how long)? @ -No Were there social determinants of health that impacted care today? How? (Homelessness, low income, unemployed, alcoholism, drug addiction, transportation, low edu. Level, literacy, decrease access to med. care, fdc, rehab)? @ -No Was there de-escalation of care discussed even if they declined (Discuss DNR or withdrawal of care, Hospice)? DNR status @ -No What co-morbidities impacted this encounter? (DM, HTN, Smoking, COPD, CAD, Cancer, CVA, ARF, Chemo, Hep., AIDS, mental health diagnosis, sleep apnea, morbid obesity)? @ -[Diabetes Was patient admitted / discharged? Hospital course, mention meds given and route, prescriptions, significant lab abnormalities, going to OR and other pertinent info. @ -Discharge patient x-ray was negative for acute fractures she does have some concerning symptoms for early cellulitis we started on oral antibiotics. Urinalysis was ordered secondary to dysuria she states that she is unable to provide sample this time she does not want to wait any further. We discussed antiemetics may treat her urinary tract infection if she has one though he did not have urine culture or urinalysis at this time. Undiagnosed new problem with uncertain prognosis? @ -No Drug Therapy requiring intensive monitoring for toxicity (Heparin, Nitro, Insulin, Cardizem)? @ -No Were any procedures done? @ -No Diagnosis/symptom? @ -Foot contusion, cellulitis Acute, or Chronic, or Acute on Chronic? @ -Acute Uncomplicated (without systemic symptoms) or Complicated (systemic symptoms)? @ -Uncomplicated Side effects of treatment? @ -No Exacerbation, Progression, or Severe Exacerbation? @ -No Poses a threat to life or bodily function? How? (Chest pain, [place], ND, pneumonia, PE, COPD, DKA, ARF, appy, cholecystitis, CVA, Diverticulitis, Homicidal, Suicidal, threat to staff... and all critical care pts) @ -No Disposition Clinical Impression: Contusion of foot, Cellulitis Disposition: HOME SELF-CARE Condition: Stable Instructions (If sedation given, give patient instructions): Cellulitis (ED) Additional Instructions: Please return to the Emergency Department if symptoms worsen or any other concerns. Prescriptions: Sulfamethox-Tmp 800-160Mg [Bactrim Ds] 1 each PO Q12HR #14 tab Is patient prescribed a controlled substance at d/c from ED?: No Referrals: Orion Benjamin [Primary Care Provider] - 1-2 days Time of Disposition: 12:47
[2023-07-12 13:21] VITALS: BP 138/74; PULSE 74; RESP 22; TEMP 98
== END 2023-07-12 13:10 | disposition home or self-care (01) ==
LOC: EC 10:31
DX: S90.31XA Contusion of right foot, initial encounter (principal); L03.115 Cellulitis of right lower limb; I13.0 Hypertensive heart and chronic kidney disease with heart failure and stage 1 through stage 4 chronic kidney disease, or unspecified chronic kidney disease; E11.22 Type 2 diabetes mellitus with diabetic chronic kidney disease; I50.9 Heart failure, unspecified; N18.4 Chronic kidney disease, stage 4 (severe); E03.9 Hypothyroidism, unspecified; E11.36 Type 2 diabetes mellitus with diabetic cataract; E78.5 Hyperlipidemia, unspecified; Z87.891 Personal history of nicotine dependence; Z79.890 Hormone replacement therapy; Z79.51 Long term (current) use of inhaled steroids; Z79.84 Long term (current) use of oral hypoglycemic drugs; Z79.4 Long term (current) use of insulin; Z79.899 Other long term (current) drug therapy; X58.XXXA Exposure to other specified factors, initial encounter
CPT/HCPCS: 99283